=== PATIENT | male | born 1940 | race African-American/Black ===

== ENCOUNTER 2018-07-09 17:33 | Emergency (ER) | payer OTHER ==
--- NOTE | 2018-07-09 17:37 | PDOC ---
History of Present Illness - General Chief Complaint: Cold Symptoms Stated Complaint: SICK Time Seen by Provider: 07/09/18 17:37 History Source: Patient, Group Home Records - History of Present Illness Initial Comments: 07/09/18 17:57 77 year old male with PMH HLD, HTN, vascular dementia, left sided weakness ( ambulates with walker), DM, BPH BIBA from [place] for cough and nasal congestion x2 days. Pt admits to pain with coughing. Pt denies fever, chills, productive cough, chest pain, nausea, vomiting, diarrhea, abdominal pain, diaphoresis, SOB. Allergies - NKDA Past History - Past Medical History Allergies/Adverse Reactions: Allergies Allergy/AdvReac Type Severity Reaction Status Date / Time No Known Allergies Allergy Verified 07/09/18 17:44 Review of Systems - Review of Systems Able to Perform ROS?: Yes Comments:: 07/09/18 18:01 General: denies fever, chills, night sweats, generalized weakness. HEENT: admits to nasal congestion. denies sore throat, rhinorrhea, ear pain. Heart: denies chest pain, palpitations, syncope, lower extremity swelling, diaphoresis. Respiratory: admits to cough. denies shortness of breath, sputum production, hemoptysis. Abdomen: denies abdominal pain, nausea, vomiting, diarrhea, constipation, blood in stool. : denies dysuria, increased urinary frequency, hematuria, urinary incontinence , flank pain. Back: denies back pain. Musculoskeletal: denies joint pain, muscle pain, joint swelling. Neurological: denies headache, dizziness, numbness, tingling, weakness. Skin: denies rash, laceration, abrasion. *Physical Exam - Physical Exam Comments: 07/09/18 18:01 Constitutional: Well-nourished, Well-developed, appearing stated age. HEENT: head is normocephalic, atraumatic. EOMI. PERRLA. Auditory canals impacted with cerumen, unable to visualize the TM bilaterally. Nasal mucosa pink , moist. Oral mucosa moist, unable to visualize posterior pharynx due to large tongue. Neck: supple. Full ROM. no anterior cervical lymphadenopathy. Heart: regular rhythm. no murmurs, rubs or gallops. Lungs: clear to auscultation bilaterally. no crackles, rhonchi or wheezing. no stridor. Abdomen: soft, nontender. normal bowel sounds. no rebound, guarding, masses. Extremities: Peripheral pulses intact. trace pedal pitting edema to left foot. Neurological: CN 2-12 grossly intact. Moves all four extremities. Psych: awake, alert, oriented to person and place, not oriented to time. Follows commands. Answers questions appropriately. ED Treatment Course - LABORATORY CBC & Chemistry Diagram: 07/09/18 19:57 07/09/18 19:57 Medical Decision Making - Medical Decision Making 07/09/18 18:03 77 year old male with PMH HLD, HTN, vascular dementia, left sided weakness ( ambulates with walker), DM, BPH BIBA from [facility] for non-productive cough and nasal congestion x2 days. Initial Vital Signs Temp Pulse Resp BP Pulse Ox 97.3 F L 63 18 151/81 100 07/09/18 17:35 07/09/18 17:35 07/09/18 17:35 07/09/18 17:35 07/09/18 17:35 Afebrile. No tachycardia. Hypertensive. No hypoxia on room air. Concern for pneumonia, cough. - Pending CXR, CBC, CMP. Low concern for influenza. - Pending rapid flu swab. 07/09/18 19:23 CXR - cardiomegaly. no acute intrathoracic pathology. 07/09/18 20:24 CBC WBC 7.7 K/mm3 (4.0-10.0) 07/09/18 19:57 RBC 3.81 M/mm3 (4.00-5.60) L 07/09/18 19:57 Hgb 11.1 GM/dL (11.7-16.9) L 07/09/18 19:57 Hct 33.7 % (35.4-49) L 07/09/18 19:57 MCV 88.6 fl (80-96) 07/09/18 19:57 MCH 29.2 pg (25.7-33.7) 07/09/18 19:57 MCHC 33.0 g/dl (32.0-35.9) 07/09/18 19:57 RDW 15.5 % (11.9-15.9) 07/09/18 19:57 Plt Count 196 K/MM3 (134-434) 07/09/18 19:57 MPV 7.7 fl (7.5-11.1) 07/09/18 19:57 Absolute Neuts (auto) 5.8 K/mm3 (1.5-8.0) 07/09/18 19:57 Neutrophils % 75.2 % (42.8-82.8) 07/09/18 19:57 Lymphocytes % 9.3 % (8-40) 07/09/18 19:57 Monocytes % 13.7 % (3.8-10.2) H 07/09/18 19:57 Eosinophils % 1.5 % (0-4.5) 07/09/18 19:57 Basophils % 0.3 % (0-2.0) 07/09/18 19:57 Nucleated RBC % 0 % (0-0) 07/09/18 19:57 No leukocytosis. Anemia - hgb 11.1. no prior to compare to. Rapid flu swab negative for influenza A and influenza B. 07/09/18 20:53 CMP Sodium 145 mmol/L (136-145) 07/09/18 19:57 Potassium 4.7 mmol/L (3.5-5.1) 07/09/18 19:57 Chloride 111 mmol/L (98-107) H 07/09/18 19:57 Carbon Dioxide 25 mmol/L (21-32) 07/09/18 19:57 Anion Gap 9 MMOL/L (8-16) 07/09/18 19:57 BUN 36 mg/dL (7-18) H 07/09/18 19:57 Creatinine 2.0 mg/dL (0.55-1.3) H 07/09/18 19:57 Creat Clearance w eGFR 32.74 (>60) 07/09/18 19:57 Random Glucose 151 mg/dL (74-106) H 07/09/18 19:57 Calcium 8.8 mg/dL (8.5-10.1) 07/09/18 19:57 Total Bilirubin 0.3 mg/dL (0.2-1) 07/09/18 19:57 AST 23 U/L (15-37) 07/09/18 19:57 ALT 31 U/L (13-61) 07/09/18 19:57 Alkaline Phosphatase 81 U/L (45-117) 07/09/18 19:57 Total Protein 7.3 g/dl (6.4-8.2) 07/09/18 19:57 Albumin 3.3 g/dl (3.4-5.0) L 07/09/18 19:57 Cr 2.0 BUN 36 BUN/Cr = 18; likely intrarenal. no prior labs to compare. 07/09/18 20:56 Pt likely has a viral respiratory infection. No fever. No leukocytosis. No infiltrate identified on CXR. Pt will be discharged back to [facility] with copies of labwork, copy of CXR report, follow up instructions and strict return precautions. *DC/Admit/Observation/Transfer Diagnosis at time of Disposition: Cough - Discharge Dispostion Disposition: LONG-TERM FACILITY Condition at time of disposition: Stable Decision to Admit order: No - Referrals Referrals: Kal Montalvo [Primary Care Provider] - - Patient Instructions Printed Discharge Instructions: DI for Common Cold Additional Instructions: Joseph Osman was seen at [facility] Emergency Department. A chest x-ray was performed, no evidence of pneumonia was seen. A CBC was performed, it was normal. A CMP was performed, it showed kidney injury, we had no prior lab work to compare to, otherwise was normal. A rapid flu swab was negative for influenza A and influenza B. A copy of the blood work results and chest x-ray report has been included in his discharge paperwork. Mr. Osman likely has a viral infection. Treat symptomatically. Take Tylenol for pain. Drink lots of clear fluids, like water or gatorade, to stay hydrated. Take Mucinex over the counter for chest congestion. Follow up with his primary care doctor within 5 days. Call their office thursday and make an appointment. Bring the discharge paperwork to the appointment. His care is not complete until he follows up. Return to the Emergency Department for productive cough, chest pain, shortness of breath, high fever, chills, weakness, altered mental status from baseline, coughing up blood, lower extremity swelling, palpitations, passing out, lightheadedness, dizziness or any other new, worsening or concerning symptoms. - Post Discharge Activity
[2018-07-09 17:44] VITALS: BP 151/81; TEMP 97.3; BMI 24.3
--- NOTE | 2018-07-09 18:21 | PDOC ---
Attending Attestation - HPI HPI: 07/09/18 18:36 The patient is a 77 year old male, with a significant past medical history of diabetes, hypertension, hyperlipidemia, vascular dementia, left sided weakness (ambulates with walker), and BPH, who presents to the emergency department via EMS from [facility] with, 2 days of nonproductive cough, nasal congestion, and mild sore throat. He denies any fever, chills, nausea, and vomiting. Allergies: NKA Primary Care Physician: Dr. Montalvo <William Foster - Last Filed: 07/09/18 18:36> - Resident Resident Name: Patricia Hernandez - ED Attending Attestation I have performed the following: I have examined & evaluated the patient, The case was reviewed & discussed with the resident, I agree w/resident's findings & plan, Exceptions are as noted - Physicial Exam PE: 07/09/18 18:43 Patient is awake and alert, in no distress Normocephalic, atraumatic PERRLA, EOMI, decreased breath sounds at bases bilaterally; RRR Abdomen is soft, distended, nontender, bowel sounds present in all 4 quadrant no lower extremity edema bilaterally - Medical Decision Making 07/09/18 18:44 77-year-old male with history of vascular dementia, hypertension presents with nasal congestion and mild nonproductive cough. Patient's afebrile and hemodynamically stable with oxygen saturation of 98% room air. We'll swab for flu; we'll obtain chest x-ray, CBC and CMP. Will reassess. Likely discharge. 07/09/18 20:59 Patient is resting comfortably. Hemodynamically stable. Oxygen saturation remains above 98% in room air. CBC reveals no evidence of leukocytosis. BUN/ creatinine are mildly elevated likely chronic in nature. Flu swab is negative at this point. Chest x-ray reveals increased interstitial markings, borderline cardiomegaly but no evidence of distinct infiltrate or effusion. I suspect an acute viral infection. Will discharge. <Warren Camacho - Last Filed: 07/09/18 21:00> Attestations - Attestations 07/09/18 18:36 Documentation prepared by William Foster, acting as ophthalmic medical technician for Warren Camacho MD. <William Foster - Last Filed: 07/09/18 18:36>
[2018-07-09 19:14] VITALS: PULSE 65
[2018-07-09 20:10] LABS: BASO % 0.3 % (0-2.0); EOS % 1.5 % (0-4.5); HEMATOCRIT 33.7 % (35.4-49); HEMOGLOBIN 11.1 GM/dL (11.7-16.9); LYMPH % 9.3 % (8-40); MCH 29.2 pg (25.7-33.7); MEAN CELL VOLUME 88.6 fl (80-96); MEAN PLT VOLUME 7.7 fl (7.5-11.1); MONO % 13.7 % (3.8-10.2); NEUT % 75.2 % (42.8-82.8); PLATELET COUNT 196 K/MM3 (134-434); RBC 3.81 M/mm3 (4.00-5.60); RDW 15.5 % (11.9-15.9); WHITE BLOOD COUNT 7.7 K/mm3 (4.0-10.0)
[2018-07-09 20:38] LABS: ALBUMIN 3.3 g/dl (3.4-5.0); ALK PHOS 81 U/L (45-117); ANION GAP 9 MMOL/L (8-16); BILIRUBIN,TOTAL 0.3 mg/dL (0.2-1); BLOOD UREA NITROGEN 36 mg/dL (7-18); CALCIUM 8.8 mg/dL (8.5-10.1); CHLORIDE 111 mmol/L (98-107); CO2 25 mmol/L (21-32); GLUCOSE,RANDOM 151 mg/dL (74-106); POTASSIUM 4.7 mmol/L (3.5-5.1); SGOT/AST 23 U/L (15-37); SGPT/ALT 31 U/L (13-61); SODIUM 145 mmol/L (136-145); TOT PROT 7.3 g/dl (6.4-8.2)
[2018-07-09] MEDS ORDERED: ALBUTEROL SO4 2.5/IPRATROPIUM 0.5 INH SOL 3 ML VIAL.NEB. NEB ONE ×2 (22:53→22:54)
== END 2018-07-10 00:07 ==
LOC: JER 17:33
PROC: 3E0F7GC Introduction of Other Therapeutic Substance into Respiratory Tract, Via Natural or Artificial Opening (ICD-10-PCS; principal; 2018-07-09)
DX: R05 Cough (principal)
CPT/HCPCS: 36415; 71045-TC-FY; 80053; 85025; 87804; 94640; 99283-25; J7620

== ENCOUNTER 2018-11-23 08:55 | Observation (INO) | payer OTHER ==
--- NOTE | 2018-11-23 09:27 | PDOC ---
History of Present Illness - General Chief Complaint: Diarrhea Stated Complaint: Vomiting/Diarrhea Time Seen by Provider: 11/23/18 09:18 History Source: Patient, EMS Exam Limitations: Dementia - History of Present Illness Travel History: No Initial Comments: 11/23/18 09:32 78y M hx of PMHx HL, HTN, vascular dementia, left sided weakness (ambulates with walker), DM, BPH, BIBA from [facility] for evaluation of diarrhea. History limited from patient due to his dementia. The patient admits to a mild nonproductive cough for a few days. denies any f/c, cp, sob, n/v, abd pain, back pain, lightheadedness. He did not look in his stool, and is not sure what color it is. He notes it is only 1-2 episodes of diarrhea that started today PMD: Dr. Kal Montalvo Past History - Past Medical History Allergies/Adverse Reactions: Allergies Allergy/AdvReac Type Severity Reaction Status Date / Time No Known Allergies Allergy Verified 07/09/18 17:44 Home Medications: Ambulatory Orders Amlodipine Besylate 10 mg PO DAILY 11/23/18 Aspirin 81 mg PO DAILY 11/23/18 Atorvastatin Calcium 80 mg PO DAILY 11/23/18 Carvedilol [Coreg -] 25 mg PO BID 11/23/18 Donepezil HCl [Aricept] 10 mg PO HS 11/23/18 Finasteride [Proscar] 5 mg PO DAILY 11/23/18 Haloperidol [Haldol -] 1 mg PO HS 11/23/18 Hydralazine HCl 50 mg PO TID 11/23/18 Insulin Glargine,Hum.rec.anlog [Lantus] 20 unit SQ HS 11/23/18 Latanoprost/Pf [Latanoprost 0.005% Eye Drop] 7.5 ml OP HS 11/23/18 Lisinopril 20 mg PO DAILY 11/23/18 Tamsulosin HCl [Flomax] 0.4 mg PO DAILY 11/23/18 Cancer: Yes (prostates hypertrophy) CVA: Yes (stroke w/left sided weakness, uses walker 2015) COPD: No Dementia: Yes Diabetes: Yes HTN: Yes Hypercholesterolemia: Yes - Suicide/Smoking/Psychosocial Hx Smoking History: Unknown if ever smoked Have you smoked in the past 12 months: No Information on smoking cessation initiated: No Hx Alcohol Use: No Drug/Substance Use Hx: No Substance Use Type: None Review of Systems - Review of Systems Able to Perform ROS?: Yes Comments:: 11/23/18 09:49 Constitutional - no reported Fever, Chills, HEENT: no reported vision changes, sore throat Respiratory: +cough, no reported sob, hemoptysis Cardiac: no reported chest pain, palpitations, light headedness, leg swelling Abd/GI: +diarrheav no reported abd pain, nausea, vomiting, blood per rectum, melena, : no reported dysuria, frequency, discharge Musculskelatal - no reported back pain, joint swelling skin - no reported bruising, erythema, rash neurological: no reported headache, numbness, focal weakness, tingling, ataxia, hematologic: no reported easy bruising, easy bleeding *Physical Exam - Vital Signs Last Vital Signs Temp Pulse Resp BP Pulse Ox 98.2 F 71 16 156/69 96 11/23/18 08:58 11/23/18 08:58 11/23/18 08:58 11/23/18 08:58 11/23/18 08:58 - Physical Exam Comments: 11/23/18 09:50 GENERAL: The patient is awake, alert, and oriented x 1, Nontoxic - in no acute distress. HEAD: Normocephalic, atraumatic. EYES: extraocular movements intact, sclera anicteric, conjunctiva clear. ENT: Normal voice, Moist mucous membranes. NECK: Normal range of motion, supple LUNGS: Breath sounds equal, clear to auscultation bilaterally. No wheezes, no rhonchi, no rales. HEART: Regular rate and rhythm, normal S1 and S2 without murmur, rub or gallop. ABDOMEN: Soft, nontender, normoactive bowel sounds. No guarding, no rebound. No CVA tenderness EXTREMITIES: Normal range of motion, no edema. NEUROLOGICAL: No facial assymetry, Normal speech, PSYCH: Normal mood, normal affect. SKIN: Warm, Dry, normal turgor, Moderate Sedation - Procedure Monitoring Vital Signs: Procedure Monitoring Vital Signs Temperature 98.2 F 11/23/18 08:58 Pulse Rate 71 11/23/18 08:58 Respiratory Rate 16 11/23/18 08:58 Blood Pressure 156/69 11/23/18 08:58 O2 Sat by Pulse Oximetry (%) 96 11/23/18 08:58 Heart Score/ECG Review - ECG Impressions Comment:: 11/23/18 10:10 Twelve-lead EKG was performed and reviewed by me. There is normal sinus rhythm with a normal rate. rate of 64 LVH with strain pattern normal axis ED Treatment Course - LABORATORY CBC & Chemistry Diagram: 11/23/18 09:55 11/23/18 09:55 Medical Decision Making - Medical Decision Making 11/23/18 09:51 suspect viral diarrhea abd soft nontender, no systemic signs will ck labs, lytes will gently hydrate will ck cxr for his cough, but doubt pna due to mild symtoms w/o fever/sob 11/23/18 12:47 pts labs reviewed Cr cw his CKD trop borderline at .17 -no symptoms suggestive of cardiac event, suspect due to renal insufficency. paul michelle - recommends obtaining echo and repeat trop/ekg if neg, will dc with pmd fu 11/23/18 15:38 repeat trop at .2 ekg unchanged clinically pt appears well w/o cp, sob paul michelle, recommends keepin pt to trend antoher trop awaiting echo results will place in obs tele 11/23/18 15:56 case was paul Jung agree iw observation in tele under dr. blunt Case discussed in detail with admitting physician including history, physical exam and ancillary studies. Admitting physician has assumed care for the patient, will follow all pending diagnostics and will complete the evaluation and treatment. *DC/Admit/Observation/Transfer Diagnosis at time of Disposition: Abnormal EKG, Troponin I above reference range - Discharge Dispostion Condition at time of disposition: Stable Decision to Admit order: Yes - Referrals Referrals: Kal Montalvo [Primary Care Provider] - - Patient Instructions - Post Discharge Activity
[2018-11-23] MEDS ORDERED: SODIUM CHLORIDE 500 ML IV STA (09:31)
[2018-11-23 10:11] LABS: BASO % 0.3 % (0-2.0); HEMATOCRIT 31.8 % (35.4-49); HEMOGLOBIN 10.7 GM/dL (11.7-16.9); LYMPH % 20.4 % (8-40); MCH 30.3 pg (25.7-33.7); MCHC 33.8 g/dl (32.0-35.9); MEAN CELL VOLUME 89.7 fl (80-96); MEAN PLT VOLUME 7.2 fl (7.5-11.1); MONO % 10.5 % (3.8-10.2); NEUT % 66.8 % (42.8-82.8); PLATELET COUNT 193 K/MM3 (134-434); RBC 3.55 M/mm3 (4.00-5.60); RDW 14.2 % (11.9-15.9); WHITE BLOOD COUNT 5.5 K/mm3 (4.0-10.0)
[2018-11-23 10:56] LABS: ALBUMIN 3.1 g/dl (3.4-5.0); ALK PHOS 74 U/L (45-117); ANION GAP 6 MMOL/L (8-16); BILIRUBIN,TOTAL 0.3 mg/dL (0.2-1); BLOOD UREA NITROGEN 42 mg/dL (7-18); CHLORIDE 112 mmol/L (98-107); CO2 25 mmol/L (21-32); CREATININE 2.1 mg/dL (0.55-1.3); GLUCOSE,RANDOM 192 mg/dL (74-106); LIPASE 208 U/L (73-393); MAGNESIUM 2.2 mg/dL (1.8-2.4); POTASSIUM 4.2 mmol/L (3.5-5.1); SGOT/AST 26 U/L (15-37); SGPT/ALT 68 U/L (13-61); SODIUM 144 mmol/L (136-145); TOT PROT 6.9 g/dl (6.4-8.2)
[2018-11-23 12:55] LABS: CHOLESTEROL 141 mg/dL (50-200); HDL CHOLESTEROL 54 mg/dL (40-60); TRIGLYCERIDES 113 mg/dL (0-150)
--- NOTE | 2018-11-23 15:24 | ECHO ---
Name: CLEMENTE CANDELARIO Exam:Adult Echocardiogram Study Date: 11/23/2018 01:11 PM Age: 78 yrs Reason For Study: EVAL CARDIAC FUNCTION Height: 76 in Weight: 220 lb BSA: 2.3 m2 MMode/2D Measurements & Calculations IVSd: 1.2 cm Ao root diam: 4.0 cm LVIDd: 6.2 cm LA dimension: 4.3 cm LVIDs: 3.2 cm ACS: 1.2 cm LVPWd: 1.1 cm IVSs: 1.6 cm LVPWs: 1.7 cm EDV(Teich): 194.0 ml ESV(Teich): 42.4 ml LVOT diam: 2.1 cm Doppler Measurements & Calculations MV E max burt: 65.4 cm/sec Ao V2 max: 182.1 cm/sec MV A max burt: 81.4 cm/sec Ao max P.3 mmHg MV E/A: 0.80 Ao V2 mean: 129.1 cm/sec Ao mean P.5 mmHg Ao V2 VTI: 38.9 cm SIMONE(I,D): 1.8 cm2 SIMONE(V,D): 1.9 cm2 LV V1 max P.5 mmHg MR max burt: 385.0 cm/sec LV V1 mean P.7 mmHg MR max P.3 mmHg LV V1 max: 93.7 cm/sec LV V1 mean: 60.4 cm/sec LV V1 VTI: 19.5 cm SV(LVOT): 70.1 ml PI end-d burt: 126.9 cm/sec Med Peak E' Burt: 4.0 cm/sec Med E/e': 16.4 Lat Peak E' Burt: 3.7 cm/sec Lat E/e': 17.7 Procedure The study was technically adequate with some images being suboptimal in quality. Left Ventricle There is moderate concentric left ventricular hypertrophy. Left ventricular systolic function is norm al. Ejection Fraction = 60%. The transmitral spectral Doppler flow pattern is suggestive of impaired LV relaxation. Right Ventricle The right ventricle is normal in size and function. Atria The left atrium is mildly dilated. Right atrial size is normal. Mitral Valve There is mild mitral annular calcification. Tricuspid Valve The tricuspid valve is normal in structure and function. Aortic Valve There is moderate aortic sclerosis.;. Mild valvular aortic stenosis. Pulmonic Valve The pulmonic valve leaflets are thin and pliable; valve motion is normal. Trace pulmonic valvular regurgitation. Great Vessels The aortic root is normal size. Pericardium/Pleura There is no pericardial effusion. Interpretation Summary The study was technically adequate with some images being suboptimal in quality. There is moderate concentric left ventricular hypertrophy. Left ventricular systolic function is normal. The right ventricle is normal in size and function. Mild valvular aortic stenosis. Anthony Mcdowell 11/23/2018 03:23 PM
[2018-11-23] MEDS ORDERED: ASPIRIN 81 MG CHEWABLE TABLETS PO ONE (15:38)
--- NOTE | 2018-11-23 16:23 | EKG ---
Test Reason : Blood Pressure : / mmHG Vent. Rate : 068 BPM Atrial Rate : 068 BPM P-R Int : 158 ms QRS Dur : 086 ms QT Int : 426 ms P-R-T Axes : 054 000 174 degrees QTc Int : 452 ms NORMAL SINUS RHYTHM POSSIBLE LEFT ATRIAL ENLARGEMENT LEFT VENTRICULAR HYPERTROPHY WITH REPOLARIZATION ABNORMALITY CANNOT RULE OUT SEPTAL INFARCT , AGE UNDETERMINED ABNORMAL ECG WHEN COMPARED WITH ECG OF 23-NOV-2018 09:52, NO SIGNIFICANT CHANGE WAS FOUND Confirmed by Anthony Mcdowell ([id number]) on 11/23/2018 4:23:02 PM Referred By: Confirmed By:Anthony Mcdowell
--- NOTE | 2018-11-23 16:25 | EKG ---
Test Reason : Blood Pressure : / mmHG Vent. Rate : 064 BPM Atrial Rate : 064 BPM P-R Int : 160 ms QRS Dur : 088 ms QT Int : 438 ms P-R-T Axes : 066 -03 185 degrees QTc Int : 451 ms NORMAL SINUS RHYTHM POSSIBLE LEFT ATRIAL ENLARGEMENT LEFT VENTRICULAR HYPERTROPHY WITH REPOLARIZATION ABNORMALITY ABNORMAL ECG NO PREVIOUS ECGS AVAILABLE Confirmed by Anthony Mcdowell ([id number]) on 11/23/2018 4:25:29 PM Referred By: Confirmed By:Anthony Mcdowell
[2018-11-23] MEDS ORDERED: ASPIRIN 81 MG CHEWABLE TABLETS ONE (16:46)
[2018-11-23] MEDS ORDERED: LACTATED RINGERS SOLUTION 1,000 ML IV SCH (17:45)
--- NOTE | 2018-11-23 17:57 | HP ---
CHIEF COMPLAINT: diarrhea PCP: HISTORY OF PRESENT ILLNESS: Patient is a 78 y/o M w/ PMHx CKD, HLD, HTN, vascular dementia, CVA w/ residual L-sided weakness, DM, BPH, [facility] today. Patient has advanced dementia and is unable to provide any history. Affirms having diarrhea but offers no further details. Denies any other complaints. ED workup was largely unremarkable but included EKG showing TWI in lateral leads and possible LVH w repolarization abnormalities , no prior with which to compare. Troponin positive to 0.17 increased to 0.20 on repeat. Received ASA and NS bolus in ED. Seen by cardiology in ED, requested tele obs admission. ER course was notable for: (1) Troponin 0.17-->0.20 (2) EKG: TWI in lateral leads, LVH, no known prior (3) Recent Travel: PAST MEDICAL HISTORY: As per HPI PAST SURGICAL HISTORY: Social History: Smoking: Alcohol: Drugs: Family History: Allergies No Known Allergies Allergy (Verified 07/09/18 17:44) HOME MEDICATIONS: Home Medications Medication Instructions Recorded Amlodipine Besylate 10 mg PO DAILY 11/23/18 Aspirin 81 mg PO DAILY 11/23/18 Atorvastatin Calcium 80 mg PO DAILY 11/23/18 Carvedilol [Coreg -] 25 mg PO BID 11/23/18 Donepezil HCl [Aricept] 10 mg PO HS 11/23/18 Finasteride [Proscar] 5 mg PO DAILY 11/23/18 Haloperidol [Haldol -] 1 mg PO HS 11/23/18 Hydralazine HCl 50 mg PO TID 11/23/18 Insulin Glargine,Hum.rec.anlog 20 unit SQ HS 11/23/18 [Lantus] Latanoprost/Pf [Latanoprost 0.005% 7.5 ml OP HS 11/23/18 Eye Drop] Lisinopril 20 mg PO DAILY 11/23/18 Tamsulosin HCl [Flomax] 0.4 mg PO DAILY 11/23/18 REVIEW OF SYSTEMS PHYSICAL EXAMINATION Vital Signs - 24 hr 11/23/18 11/23/18 11/23/18 08:58 13:49 15:46 Temperature 98.2 F Pulse Rate 71 Pulse Rate [ 76 73 Left Radial] Respiratory 16 16 18 Rate Blood Pressure 156/69 Blood Pressure 150/79 179/90 H [Right Arm] O2 Sat by Pulse 96 97 97 Oximetry (%) GENERAL: Awake, alert, oriented only to name HEENT: NC/AT, PERRLA, EOMI, MMM NECK: supple, NT, no JVD, no LAD LUNGS: CTA b/l HEART: RRR no m/r/g ABDOMEN: +bs, obese, soft, NT, ND EXTREMITIES: 2+ pulses, warm, well-perfused. No calf tenderness. No peripheral edema. NEUROLOGICAL: 4+/5 strength in LUE and LLE c/w prior known residual deficit, otherwise no focal deficits PSYCHIATRIC: Advanced dementia SKIN: hypopigmented macular lesions on R castillo Laboratory Results - last 24 hr 11/23/18 11/23/18 11/23/18 09:55 09:55 14:03 WBC 5.5 RBC 3.55 L Hgb 10.7 L Hct 31.8 L MCV 89.7 MCH 30.3 MCHC 33.8 RDW 14.2 Plt Count 193 MPV 7.2 L Absolute Neuts (auto) 3.7 Neutrophils % 66.8 Lymphocytes % 20.4 D Monocytes % 10.5 H Eosinophils % 2.0 Basophils % 0.3 Nucleated RBC % 0 Sodium 144 Potassium 4.2 Chloride 112 H Carbon Dioxide 25 Anion Gap 6 L BUN 42 H Creatinine 2.1 H Creat Clearance w eGFR 30.86 Random Glucose 192 H Calcium 8.0 L Magnesium 2.2 Total Bilirubin 0.3 AST 26 ALT 68 H Alkaline Phosphatase 74 Creatine Kinase 266 273 Creatine Kinase Index 1.0 1.0 CK-MB (CK-2) 2.7 3.0 Troponin I 0.17 H 0.20 H Total Protein 6.9 Albumin 3.1 L Triglycerides 113 Cholesterol 141 Total LDL Cholesterol 75 HDL Cholesterol 54 Lipase 208 ASSESSMENT/PLAN: 78 y/o M w/ PMHx CKD, HLD, HTN, vascular dementia, CVA w/ residual L-sided weakness, DM, BPH from [facility] for evaluation of diarrhea x 1 day, no other Hx available d/t neurocognitive condition. Found to have troponemia and EKG abnormalities. #CV -trop 0.17-->0.20, will follow until downtrending -EKG: TWI in lateral leads, LVH w/ repolarization abnormalities -cardiology consulted, Dr. Jacobson following -significant HTN: 179/90 -restarting outpt BP meds: amlodipine, carvedilol, hydralazine, lisinopril -received ASA 162 in ED, restarting ASA 81 in AM -restarting Lipitor #GI -unknown timing/presentation/circumstances of diarrhea -obtaining stool Cx and C diff studies -gentle IVF w/ LR @ 50 #nephro -Cr 2.1 c/w baseline 6 months prior -gentle IVF w/ LR @ 50 #neuro/psych -restarting haldol/aricept #endocrine -BGM ACHS -SSI -Glargine 20U HS # -restarting finasteride and flomax #FEN -LR @ 50 -monitor and correct electrolytes -diabetic diet #PPx -DVT: heparin subq -GI: not indicated #code -full #dispo -tele obs Visit type - Emergency Visit Emergency Visit: Yes Care time: The patient presented to the Emergency Department on the above date and was hospitalized for further evaluation of their emergent condition. - New Patient This patient is new to me today: Yes Date on this admission: 11/23/18 - Critical Care Critical Care patient: No
--- NOTE | 2018-11-23 19:39 | PN ---
Teaching Attending Note Name of Resident: Siva Miguel ATTENDING PHYSICIAN STATEMENT I saw and evaluated the patient. I reviewed the resident's note and discussed the case with the resident. I agree with the resident's findings and plan as documented. SUBJECTIVE: Patient has dementia and history was limited. He does admit to diarrhea for several days. Denies abdominal pain/nausea/vomiting/melena/ hematochezia/fever/chills. OBJECTIVE: Afebrile, Hemodynamically Stable. Last Vital Signs Temp Pulse Resp BP Pulse Ox 98.1 F 74 18 138/58 L 98 11/23/18 17:47 11/23/18 17:47 11/23/18 18:04 11/23/18 17:47 11/23/18 18:04 HEENT - Atraumatic, Normocephalic. Heart - S1, S2, RRR, soft SM Lungs - clear to auscultation. Abdomen - soft, non-tender. Bowel Sounds normal. Extremities - no edema. No calf tenderness. Neuro - AAO x 1-2. Moving all extremities but unable to participate in neuro exam. Laboratory Results - last 24 hr 11/23/18 11/23/18 11/23/18 09:55 09:55 14:03 WBC 5.5 RBC 3.55 L Hgb 10.7 L Hct 31.8 L MCV 89.7 MCH 30.3 MCHC 33.8 RDW 14.2 Plt Count 193 MPV 7.2 L Absolute Neuts (auto) 3.7 Neutrophils % 66.8 Lymphocytes % 20.4 D Monocytes % 10.5 H Eosinophils % 2.0 Basophils % 0.3 Nucleated RBC % 0 Sodium 144 Potassium 4.2 Chloride 112 H Carbon Dioxide 25 Anion Gap 6 L BUN 42 H Creatinine 2.1 H Creat Clearance w eGFR 30.86 Random Glucose 192 H Calcium 8.0 L Magnesium 2.2 Total Bilirubin 0.3 AST 26 ALT 68 H Alkaline Phosphatase 74 Creatine Kinase 266 273 Creatine Kinase Index 1.0 1.0 CK-MB (CK-2) 2.7 3.0 Troponin I 0.17 H 0.20 H Total Protein 6.9 Albumin 3.1 L Triglycerides 113 Cholesterol 141 Total LDL Cholesterol 75 HDL Cholesterol 54 Lipase 208 Current Medications Generic Name Dose Route Start Last Admin Trade Name Freq PRN Reason Stop Dose Admin Amlodipine Besylate 10 mg 11/24/18 10:00 Norvasc - PO DAILY [facility] Aspirin 81 mg 11/24/18 10:00 Asa - PO DAILY [facility] Atorvastatin Calcium 80 mg 11/24/18 22:00 Lipitor - PO HS [facility] Carvedilol 25 mg 11/23/18 22:00 Coreg - PO BID [facility] Donepezil HCl 10 mg 11/23/18 22:00 Aricept - PO HS [facility] Finasteride 5 mg 11/24/18 10:00 Proscar - PO DAILY [facility] Heparin Sodium (Porcine) 5,000 unit 11/23/18 22:00 Heparin - SQ TID [facility] Hydralazine HCl 50 mg 11/23/18 22:00 Apresoline - PO TID [facility] Lactated Ringer's 1,000 mls @ 50 mls/hr 11/23/18 17:45 11/23/18 17:46 Lactated Ringers Solution IV 50 mls/hr ASDIR [facility] Administration Insulin Aspart 1 vial 11/23/18 22:00 Novolog Vial Sliding Scale - SQ ACHS [facility] Protocol Insulin Detemir 20 units 11/23/18 22:00 Levemir Vial SQ HS [facility] Latanoprost 1 drop 11/23/18 22:00 Xalatan 0.005% Eye Drops - OU HS [facility] Lisinopril 20 mg 11/24/18 10:00 Prinivil PO DAILY [facility] Tamsulosin HCl 0.4 mg 11/24/18 08:30 Flomax - PO DAILY@0830 [facility] Home Medications Medication Instructions Recorded Amlodipine Besylate 10 mg PO DAILY 11/23/18 Aspirin 81 mg PO DAILY 11/23/18 Atorvastatin Calcium 80 mg PO DAILY 11/23/18 Carvedilol [Coreg -] 25 mg PO BID 11/23/18 Donepezil HCl [Aricept] 10 mg PO HS 11/23/18 Finasteride [Proscar] 5 mg PO DAILY 11/23/18 Haloperidol [Haldol -] 1 mg PO HS 11/23/18 Hydralazine HCl 50 mg PO TID 11/23/18 Insulin Glargine,Hum.rec.anlog 20 unit SQ HS 11/23/18 [Lantus] Latanoprost/Pf [Latanoprost 0.005% 7.5 ml OP HS 11/23/18 Eye Drop] Lisinopril 20 mg PO DAILY 11/23/18 Tamsulosin HCl [Flomax] 0.4 mg PO DAILY 11/23/18 ASSESSMENT AND PLAN: 78 year old Male with history of HTN, HLD, CKD 3, HL, Dementia, DM 2, BPH, Chronic L hemiplegia (? prior CVA), sent to ED by [facility] for reported diarrhea. No fever/chills/abdominal pain/melena/hematochezia/nausea/vomiting. 1. Diarrhea, etiology unclear Will send Stool for Culture and Cdiff once sample is produced. Gentle IV hydration overnight. 2. Troponin Egression, denies CP - no known cardiac history. Possibly sec to decreased clearance due to CKD ECG - LVH with repolarization abnormalities/inverted T waves lateral leads. Echo - Moderate LVH, systolic function normal, Mild . For telemonitoring and serial Troponin measurements. On Aspirin, BB, KATHERINE-I, Statin. 3. CKD 3 - Stable. Creat 2.1 - at baseline. 4. HTN - Continue Lisinopril, Norvasc, Hydralazine, Coreg 5. Dementia - Continue Donepezil, Hydralazine 6. BPH -Continue Flomax, Finasteride. 7. DM 2 - Continue Levemir with sliding scale. DVT Px - Heparin SQ
[2018-11-23] MEDS ORDERED: LATANOPROST 0.005% OPHTH SOLN 2.5ML BOTTLE OU SCH (22:00)
[2018-11-23] MEDS ORDERED: DONEPEZIL HCL 10 MG TABLET (FP) PO SCH (22:00)
[2018-11-23] MEDS ORDERED: HALOPERIDOL 1 MG TABLET (FP) PO SCH (22:00)
[2018-11-23] MEDS ORDERED: INSULIN (LEVEMIR) 100 UNITS/ML UNITS SQ SCH (22:00)
[2018-11-23] MEDS ORDERED: hydrALAZINE HCL 25 MG TABLET (FP) ONE (22:52)
[2018-11-23] MEDS ORDERED: CARVEDILOL 12.5 MG TABLET (FP) ONE (22:52)
[2018-11-23] MEDS ORDERED: DONEPEZIL HCL 5 MG TABLET (FP) ONE (22:53)
[2018-11-23] MEDS ORDERED: HEPARIN NA (PORCINE) 5,000 UNITS/ML 1ML VIAL ONE (22:53)
[2018-11-23] MEDS ORDERED: INSULIN (LEVEMIR) 100 UNITS/ML UNITS SQ ONE (22:53)
[2018-11-23] MEDS: CARVEDILOL 25 MG TABLET (FP) PO SCH (23:05)
[2018-11-23] MEDS: HEPARIN NA (PORCINE) 5,000 UNITS/ML 1ML VIAL SQ SCH (23:05)
[2018-11-23] MEDS: hydrALAZINE HCL 50 MG TABLET (FP) PO SCH (23:05)
[2018-11-23] MEDS: INSULIN SLIDING SCALE (NOVOLOG) 1 VIAL SQ SCH (23:07)
--- NOTE | 2018-11-23 23:07 | CON.CARD ---
Consult Consult Specialty:: cardiology Reason for Consultation:: elevated TNI - History of Present Illness Chief Complaint: c/o diarrhea; denies chest pain History of Present Illness: 78y M hx of PMHx HL, HTN, vascular dementia, left sided weakness (ambulates with walker), DM, BPH, [facility]. History limited from patient due to his dementia. The patient admits to a mild nonproductive cough for a few days. denies any f/c, cp, sob, n/v, abd pain, back pain, lightheadedness. He did not look in his stool, and is not sure what color it is. 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 Cardio/Vascular: Yes: HTN - Alcohol/Substance Use Hx Alcohol Use: No - Smoking History Smoking history: Unknown if ever smoked Have you smoked in the past 12 months: No Home Medications - Allergies Allergies/Adverse Reactions: Allergies Allergy/AdvReac Type Severity Reaction Status Date / Time No Known Allergies Allergy Verified 07/09/18 17:44 - Home Medications Home Medications: Ambulatory Orders Amlodipine Besylate 10 mg PO DAILY 11/23/18 Aspirin 81 mg PO DAILY 11/23/18 Atorvastatin Calcium 80 mg PO DAILY 11/23/18 Carvedilol [Coreg -] 25 mg PO BID 11/23/18 Donepezil HCl [Aricept] 10 mg PO HS 11/23/18 Finasteride [Proscar] 5 mg PO DAILY 11/23/18 Haloperidol [Haldol -] 1 mg PO HS 11/23/18 Hydralazine HCl 50 mg PO TID 11/23/18 Insulin Glargine,Hum.rec.anlog [Lantus] 20 unit SQ HS 11/23/18 Latanoprost/Pf [Latanoprost 0.005% Eye Drop] 7.5 ml OP HS 11/23/18 Lisinopril 20 mg PO DAILY 11/23/18 Tamsulosin HCl [Flomax] 0.4 mg PO DAILY 11/23/18 Review of Systems Unable to obtain ROS, reason: dementia Vital Signs: Vital Signs Temperature 98.1 F 11/23/18 17:47 Pulse Rate 79 11/23/18 20:19 Respiratory Rate 18 11/23/18 20:19 Blood Pressure 160/77 11/23/18 20:19 O2 Sat by Pulse Oximetry (%) 99 11/23/18 20:19 - Other Data Labs, Other Data: CBC, BMP 11/23/18 09:55 11/23/18 09:55 Troponin, BNP 11/23/18 11/23/18 11/23/18 09:55 14:03 21:19 Troponin I 0.17 H 0.20 H 0.17 H Troponin, BNP 11/23/18 11/23/18 11/23/18 09:55 14:03 21:19 Troponin I 0.17 H 0.20 H 0.17 H Problem List - Problems (1) Diarrhea Code(s): R19.7 - DIARRHEA, UNSPECIFIED (2) Abnormal EKG Assessment/Plan: NSR: LVH with likely repolarization abnormalities; r/o ischemia; r/o septal infarct Code(s): R94.31 - ABNORMAL ELECTROCARDIOGRAM [ECG] [EKG] (3) Troponin I above reference range Assessment/Plan: 0.17-->0.20; CK not elevated. EKG: NSR; LVH; repolariztion abnromalities; r/o ishcmia; r/o septal infarct F/u TNI serially;telemetry. F/u ECHO for LVEF, regional wall motion. Code(s): R74.8 - ABNORMAL LEVELS OF OTHER SERUM ENZYMES (4) Cough Code(s): R05 - COUGH
[2018-11-23] MEDS ORDERED: INSULIN (NOVOLOG MIX 70/30) 100 UNITS/ML MDV SQ ONE (23:11)
[2018-11-24 05:53] LABS: INR 0.98 (0.83-1.09); PROTHROMBIN TIME (PATIENT) 11.6 SEC (9.7-13.0)
[2018-11-24 05:56] LABS: ACTIVATED PTT 33.3 SECONDS (25.2-36.5)
[2018-11-24] MEDS ORDERED: HEPARIN NA (PORCINE) 5,000 UNITS/ML 1ML VIAL ONE (06:07)
[2018-11-24] MEDS ORDERED: hydrALAZINE HCL 25 MG TABLET (FP) ONE (06:07)
[2018-11-24 06:14] LABS: ANION GAP 3 MMOL/L (8-16); BLOOD UREA NITROGEN 35 mg/dL (7-18); CALCIUM 7.9 mg/dL (8.5-10.1); CHLORIDE 115 mmol/L (98-107); CO2 26 mmol/L (21-32); CREATININE 1.9 mg/dL (0.55-1.3); GLUCOSE,RANDOM 108 mg/dL (74-106); MAGNESIUM 2.2 mg/dL (1.8-2.4); N-TERMINAL BNP 429.6 pg/ml (5-450); PHOSPHOROUS 3.6 mg/dL (2.5-4.9); SODIUM 145 mmol/L (136-145)
[2018-11-24] MEDS: HEPARIN NA (PORCINE) 5,000 UNITS/ML 1ML VIAL SQ SCH ×2 (06:38→14:14)
[2018-11-24] MEDS: hydrALAZINE HCL 50 MG TABLET (FP) PO SCH ×2 (06:39→14:14)
[2018-11-24] MEDS: INSULIN SLIDING SCALE (NOVOLOG) 1 VIAL SQ SCH ×2 (07:40→11:23)
--- NOTE | 2018-11-24 08:12 | PN ---
Progress Note, Physician History of Present Illness: 78y M hx of PMHx HL, HTN, vascular dementia, left sided weakness (ambulates with walker), DM, BPH, [facility]. History limited from patient due to his dementia. The patient admits to a mild nonproductive cough for a few days. denies any f/c, cp, sob, n/v, abd pain, back pain, lightheadedness. He did not look in his stool, and is not sure what color it is. He notes it is only 1-2 episodes of diarrhea that started today - Current Medication List Current Medications: Active Medications Amlodipine Besylate (Norvasc -) 10 mg PO DAILY [facility] Aspirin (Asa -) 81 mg PO DAILY [facility] Atorvastatin Calcium (Lipitor -) 80 mg PO HS [facility] Carvedilol (Coreg -) 25 mg PO BID [facility] Last Admin: 11/23/18 23:05 Dose: 25 mg Donepezil HCl (Aricept -) 10 mg PO [facility] Last Admin: 11/23/18 23:05 Dose: 10 mg Finasteride (Proscar -) 5 mg PO DAILY [facility] Heparin Sodium (Porcine) (Heparin -) 5,000 unit SQ TID [facility] Last Admin: 11/24/18 06:38 Dose: 5,000 unit Hydralazine HCl (Apresoline -) 50 mg PO TID [facility] Last Admin: 11/24/18 06:39 Dose: 50 mg Lactated Ringer's (Lactated Ringers Solution) 1,000 mls @ 50 mls/hr IV ASDIR [facility] Last Admin: 11/23/18 17:46 Dose: 50 mls/hr Insulin Aspart (Novolog Vial Sliding Scale -) 1 vial SQ [facility]; Protocol Last Admin: 11/24/18 07:40 Dose: Not Given Insulin Detemir (Levemir Vial) 20 units SQ [facility] Last Admin: 11/23/18 23:05 Dose: 20 unit Latanoprost (Xalatan 0.005% Eye Drops -) 1 drop OU [facility] Last Admin: 11/23/18 22:00 Dose: 1 drop Lisinopril (Prinivil) 20 mg PO DAILY [facility] Tamsulosin HCl (Flomax -) 0.4 mg PO DAILY@0830 [facility] - Objective Vital Signs: Vital Signs Temperature 98.1 F 11/23/18 17:47 Pulse Rate 79 11/23/18 20:19 Respiratory Rate 18 11/23/18 20:19 Blood Pressure 160/77 11/23/18 20:19 O2 Sat by Pulse Oximetry (%) 99 11/23/18 20:19 Eyes: Yes: WNL, Conjunctiva Clear, EOM Intact HENT: Yes: WNL, Atraumatic, Normocephalic Neck: Yes: WNL, Supple, Trachea Midline Cardiovascular: Yes: WNL, Regular Rate and Rhythm Respiratory: Yes: WNL, Regular, CTA Bilaterally Gastrointestinal: Yes: WNL, Normal Bowel Sounds Genitourinary: Yes: WNL Musculoskeletal: Yes: WNL Extremities: Yes: WNL Edema: No Integumentary: Yes: WNL Neurological: Yes: WNL, Alert, Oriented ...Motor Strength: WNL Psychiatric: Yes: WNL Labs: CBC, BMP 11/23/18 09:55 11/24/18 05:20 INR, PTT INR 0.98 (0.83-1.09) 11/24/18 05:20 Assessment/Plan - Problems (1) Diarrhea Code(s): R19.7 - DIARRHEA, UNSPECIFIED (2) Abnormal EKG Assessment/Plan: NSR: LVH with likely repolarization abnormalities; r/o ischemia; r/o septal infarct Code(s): R94.31 - ABNORMAL ELECTROCARDIOGRAM [ECG] [EKG] (3) Troponin I above reference range Assessment/Plan: 0.17-->0.20; CK not elevated. EKG: NSR; LVH; repolariztion abnromalities; r/o ishcmia; r/o septal infarct F/u TNI serially;telemetry. F/u ECHO for LVEF, regional wall motion. Code(s): R74.8 - ABNORMAL LEVELS OF OTHER SERUM ENZYMES (4) Cough Code(s): R05 - COUGH
[2018-11-24] MEDS ORDERED: TAMSULOSIN HCL 0.4 MG CAP PO SCH (08:30)
[2018-11-24 09:38] LABS: BASO % 0.4 % (0-2.0); EOS % 2.4 % (0-4.5); HEMATOCRIT 35.1 % (35.4-49); HEMOGLOBIN 11.8 GM/dL (11.7-16.9); LYMPH % 25.5 % (8-40); MCH 30.3 pg (25.7-33.7); MCHC 33.6 g/dl (32.0-35.9); MEAN PLT VOLUME 7.3 fl (7.5-11.1); MONO % 10.1 % (3.8-10.2); NEUT % 61.6 % (42.8-82.8); PLATELET COUNT 200 K/MM3 (134-434); RDW 14.3 % (11.9-15.9); WHITE BLOOD COUNT 4.7 K/mm3 (4.0-10.0)
--- NOTE | 2018-11-24 09:52 | EKG ---
Test Reason : Blood Pressure : / mmHG Vent. Rate : 074 BPM Atrial Rate : 074 BPM P-R Int : 162 ms QRS Dur : 082 ms QT Int : 406 ms P-R-T Axes : 069 034 204 degrees QTc Int : 450 ms NORMAL SINUS RHYTHM ABNORMAL ECG WHEN COMPARED WITH ECG OF 23-NOV-2018 14:39, MINIMAL CRITERIA FOR SEPTAL INFARCT ARE NO LONGER PRESENT T WAVE INVERSION MORE EVIDENT IN INFERIOR LEADS T WAVE INVERSION MORE EVIDENT IN ANTERIOR LEADS Confirmed by ARIEL FISH MD ([id number]) on 11/24/2018 9:52:05 AM Referred By: Confirmed By:ARIEL FISH MD
--- NOTE | 2018-11-24 09:52 | EKG ---
Test Reason : Blood Pressure : / mmHG Vent. Rate : 072 BPM Atrial Rate : 072 BPM P-R Int : 158 ms QRS Dur : 094 ms QT Int : 412 ms P-R-T Axes : 056 -21 160 degrees QTc Int : 451 ms NORMAL SINUS RHYTHM LEFT VENTRICULAR HYPERTROPHY WITH REPOLARIZATION ABNORMALITY ABNORMAL ECG WHEN COMPARED WITH ECG OF 23-NOV-2018 21:39, T WAVE INVERSION LESS EVIDENT IN INFERIOR LEADS Confirmed by POLINA TRIVEDI, ARIEL ([id number]) on 11/24/2018 9:51:57 AM Referred By: Confirmed By:ARIEL FISH MD
[2018-11-24] MEDS ORDERED: FINASTERIDE 5 MG TABLET (FP) PO SCH (10:00)
[2018-11-24] MEDS ORDERED: LISINOPRIL 20 MG TABLET (FP) PO SCH (10:00)
[2018-11-24] MEDS ORDERED: amLODIPine BESYLATE 10 MG TABLET (FP) PO SCH (10:00)
[2018-11-24] MEDS ORDERED: ASPIRIN 81 MG CHEWABLE TABLETS PO SCH (10:00)
[2018-11-24] MEDS ORDERED: PT OWN MED DRAWER 7, Y5N ONE (10:09)
[2018-11-24] MEDS: CARVEDILOL 25 MG TABLET (FP) PO SCH (11:23)
--- NOTE | 2018-11-24 13:11 | PN ---
Physical Exam: SUBJECTIVE: Patient seen and examined at bedside. Denies further diarrhea, denies any other complaints. Feeling well. OBJECTIVE: Vital Signs Period Temp Pulse Resp BP Sys/Escoto Pulse Ox Last 24 Hr 98.1 F-98.1 F 68-79 16-19 138-179/58-90 96-99 GENERAL: Awake, alert, oriented only to name HEENT: NC/AT, PERRLA, EOMI, MMM NECK: supple, NT, no JVD, no LAD LUNGS: CTA b/l HEART: RRR no m/r/g ABDOMEN: +bs, obese, soft, NT, ND EXTREMITIES: 2+ pulses, warm, well-perfused. No calf tenderness. No peripheral edema. NEUROLOGICAL: 4+/5 strength in LUE and LLE c/w prior known residual deficit, otherwise no focal deficits PSYCHIATRIC: Advanced dementia SKIN: hypopigmented macular lesions on R castillo with chronic appearance Laboratory Results - last 24 hr 11/23/18 11/23/18 11/23/18 14:03 21:19 22:57 WBC RBC Hgb Hct MCV MCH MCHC RDW Plt Count MPV Absolute Neuts (auto) Neutrophils % Lymphocytes % Monocytes % Eosinophils % Basophils % Nucleated RBC % PT with INR INR PTT (Actin FS) Sodium Potassium Chloride Carbon Dioxide Anion Gap BUN Creatinine Creat Clearance w eGFR POC Glucometer 278 Random Glucose Calcium Phosphorus Magnesium Creatine Kinase 273 Creatine Kinase Index 1.0 CK-MB (CK-2) 3.0 Troponin I 0.20 H 0.17 H B-Natriuretic Peptide 11/24/18 11/24/18 11/24/18 00:42 05:20 05:20 WBC RBC Hgb Hct MCV MCH MCHC RDW Plt Count MPV Absolute Neuts (auto) Neutrophils % Lymphocytes % Monocytes % Eosinophils % Basophils % Nucleated RBC % PT with INR 11.60 INR 0.98 PTT (Actin FS) 33.3 Sodium 145 Potassium 4.0 Chloride 115 H Carbon Dioxide 26 Anion Gap 3 L BUN 35 H Creatinine 1.9 H Creat Clearance w eGFR 34.64 POC Glucometer Random Glucose 108 H Calcium 7.9 L Phosphorus 3.6 Magnesium 2.2 Creatine Kinase 230 Creatine Kinase Index 1.0 CK-MB (CK-2) 2.4 Troponin I 0.17 H B-Natriuretic Peptide 429.6 11/24/18 11/24/18 11/24/18 05:20 06:30 09:28 WBC 4.7 RBC 3.90 L Hgb 11.8 Hct 35.1 L MCV 90.0 MCH 30.3 MCHC 33.6 RDW 14.3 Plt Count 200 MPV 7.3 L Absolute Neuts (auto) 2.9 Neutrophils % 61.6 Lymphocytes % 25.5 D Monocytes % 10.1 Eosinophils % 2.4 Basophils % 0.4 Nucleated RBC % 0 PT with INR INR PTT (Actin FS) Sodium Potassium Chloride Carbon Dioxide Anion Gap BUN Creatinine Creat Clearance w eGFR POC Glucometer 91 Random Glucose Calcium Phosphorus Magnesium Creatine Kinase 229 Creatine Kinase Index 0.9 CK-MB (CK-2) 2.2 Troponin I 0.16 H B-Natriuretic Peptide 11/24/18 11:20 WBC RBC Hgb Hct MCV MCH MCHC RDW Plt Count MPV Absolute Neuts (auto) Neutrophils % Lymphocytes % Monocytes % Eosinophils % Basophils % Nucleated RBC % PT with INR INR PTT (Actin FS) Sodium Potassium Chloride Carbon Dioxide Anion Gap BUN Creatinine Creat Clearance w eGFR POC Glucometer 91 Random Glucose Calcium Phosphorus Magnesium Creatine Kinase Creatine Kinase Index CK-MB (CK-2) Troponin I B-Natriuretic Peptide Active Medications Generic Name Dose Route Start Last Admin Trade Name Freq PRN Reason Stop Dose Admin Amlodipine Besylate 10 mg 11/24/18 10:00 11/24/18 11:23 Norvasc - PO 10 mg DAILY [facility] Administration Aspirin 81 mg 11/24/18 10:00 11/24/18 11:23 Asa - PO 81 mg DAILY [facility] Administration Atorvastatin Calcium 80 mg 11/24/18 22:00 Lipitor - PO HS [facility] Carvedilol 25 mg 11/23/18 22:00 11/24/18 11:23 Coreg - PO 25 mg BID [facility] Administration Donepezil HCl 10 mg 11/23/18 22:00 11/23/18 23:05 Aricept - PO 10 mg HS [facility] Administration Finasteride 5 mg 11/24/18 10:00 11/24/18 11:23 Proscar - PO 5 mg DAILY [facility] Administration Heparin Sodium (Porcine) 5,000 unit 11/23/18 22:00 11/24/18 06:38 Heparin - SQ 5,000 unit TID [facility] Administration Hydralazine HCl 50 mg 11/23/18 22:00 11/24/18 06:39 Apresoline - PO 50 mg TID [facility] Administration Lactated Ringer's 1,000 mls @ 50 mls/hr 11/23/18 17:45 11/23/18 17:46 Lactated Ringers Solution IV 50 mls/hr ASDIR [facility] Administration Insulin Aspart 1 vial 11/23/18 22:00 11/24/18 11:23 Novolog Vial Sliding Scale - SQ Not Given ACHS [facility] Protocol Insulin Detemir 20 units 11/23/18 22:00 11/23/18 23:05 Levemir Vial SQ 20 unit HS [facility] Administration Latanoprost 1 drop 11/23/18 22:00 11/23/18 22:00 Xalatan 0.005% Eye Drops - OU 1 drop HS [facility] Administration Lisinopril 20 mg 11/24/18 10:00 11/24/18 11:23 Prinivil PO 20 mg DAILY [facility] Administration Tamsulosin HCl 0.4 mg 11/24/18 08:30 11/24/18 08:23 Flomax - PO 0.4 mg DAILY@0830 [facility] Administration HOSPITAL COURSE: Patient is a 78 y/o M w/ PMHx CKD, HLD, HTN, vascular dementia, CVA w/ residual L-sided weakness, DM, BPH, BIBEMS from [facility] for evaluation of diarrhea beginning today. Patient has advanced dementia and is unable to provide any history. Affirms having diarrhea but offers no further details. Denies any other complaints. ED workup was largely unremarkable but included EKG showing TWI in lateral leads and possible LVH w/ repolarization abnormalities, no prior with which to compare. Troponin positive to 0.17 increased to 0.20 on repeat. Received ASA and NS bolus in ED. Cardiology was consulted by the ED, he was seen by Dr. Jacobson, and placed on telemetry observation. Serial cardiac enzymes downtrended. The patient denied any chest pain or shortness of breath and manifested no signs or symptoms of cardiac pathology throughout his hospitalization. He was discharged back to his living facility with instructions to resume prior medical therapies and follow up with his primary medical doctor.
[2018-11-24] MEDS ORDERED: ATROPINE SULFATE 1 MG/10 ML DISP.SYRIN ONE (13:41)
[2018-11-24 14:22] VITALS: BP 151/71; PULSE 61; TEMP 98.2
--- NOTE | 2018-11-24 15:15 | DS ---
Physical Exam: SUBJECTIVE: Patient seen and examined at bedside. Denies further diarrhea, denies any other complaints. Feeling well. OBJECTIVE: Vital Signs Period Temp Pulse Resp BP Sys/Escoto Pulse Ox Last 24 Hr 98.1 F-98.2 F 61-79 15-19 138-179/58-90 96-99 PHYSICAL EXAM GENERAL: Awake, alert, oriented only to name HEENT: NC/AT, PERRLA, EOMI, MMM NECK: supple, NT, no JVD, no LAD LUNGS: CTA b/l HEART: RRR no m/r/g ABDOMEN: +bs, obese, soft, NT, ND EXTREMITIES: 2+ pulses, warm, well-perfused. No calf tenderness. No peripheral edema. NEUROLOGICAL: 4+/5 strength in LUE and LLE c/w prior known residual deficit, otherwise no focal deficits PSYCHIATRIC: Advanced dementia SKIN: hypopigmented macular lesions on R castillo with chronic appearance LABS Laboratory Results - last 24 hr 11/23/18 11/23/18 11/24/18 21:19 22:57 00:42 WBC RBC Hgb Hct MCV MCH MCHC RDW Plt Count MPV Absolute Neuts (auto) Neutrophils % Lymphocytes % Monocytes % Eosinophils % Basophils % Nucleated RBC % PT with INR INR PTT (Actin FS) Sodium Potassium Chloride Carbon Dioxide Anion Gap BUN Creatinine Creat Clearance w eGFR POC Glucometer 278 Random Glucose Calcium Phosphorus Magnesium Creatine Kinase 230 Creatine Kinase Index 1.0 CK-MB (CK-2) 2.4 Troponin I 0.17 H 0.17 H B-Natriuretic Peptide 11/24/18 11/24/18 11/24/18 05:20 05:20 05:20 WBC RBC Hgb Hct MCV MCH MCHC RDW Plt Count MPV Absolute Neuts (auto) Neutrophils % Lymphocytes % Monocytes % Eosinophils % Basophils % Nucleated RBC % PT with INR 11.60 INR 0.98 PTT (Actin FS) 33.3 Sodium 145 Potassium 4.0 Chloride 115 H Carbon Dioxide 26 Anion Gap 3 L BUN 35 H Creatinine 1.9 H Creat Clearance w eGFR 34.64 POC Glucometer Random Glucose 108 H Calcium 7.9 L Phosphorus 3.6 Magnesium 2.2 Creatine Kinase 229 Creatine Kinase Index 0.9 CK-MB (CK-2) 2.2 Troponin I 0.16 H B-Natriuretic Peptide 429.6 11/24/18 11/24/18 11/24/18 06:30 09:28 11:20 WBC 4.7 RBC 3.90 L Hgb 11.8 Hct 35.1 L MCV 90.0 MCH 30.3 MCHC 33.6 RDW 14.3 Plt Count 200 MPV 7.3 L Absolute Neuts (auto) 2.9 Neutrophils % 61.6 Lymphocytes % 25.5 D Monocytes % 10.1 Eosinophils % 2.4 Basophils % 0.4 Nucleated RBC % 0 PT with INR INR PTT (Actin FS) Sodium Potassium Chloride Carbon Dioxide Anion Gap BUN Creatinine Creat Clearance w eGFR POC Glucometer 91 91 Random Glucose Calcium Phosphorus Magnesium Creatine Kinase Creatine Kinase Index CK-MB (CK-2) Troponin I B-Natriuretic Peptide HOSPITAL COURSE: Date of Admission:11/23/18 Patient is a 78 y/o M w/ PMHx CKD, HLD, HTN, vascular dementia, CVA w/ residual L-sided weakness, DM, BPH, BIBEMS from [facility] for evaluation of diarrhea beginning today. Patient has advanced dementia and is unable to provide any history. Affirms having diarrhea but offers no further details. Denies any other complaints. ED workup was largely unremarkable but included EKG showing TWI in lateral leads and possible LVH w/ repolarization abnormalities, no prior with which to compare. Troponin positive to 0.17 increased to 0.20 on repeat. Received ASA and NS bolus in ED. Cardiology was consulted by the ED, he was seen by Dr. Jacobson, and placed on telemetry observation. Serial cardiac enzymes downtrended. The patient denied any chest pain or shortness of breath and manifested no signs or symptoms of cardiac pathology throughout his hospitalization. He was discharged back to his living facility with instructions to resume prior medical therapies and follow up with his primary medical doctor. Date of Discharge: 11/24/18 Minutes to complete discharge: 36 Discharge Summary Reason For Visit: ELEVATED TROPONIN I LEVEL/ABN ELECTROCARDIOGRAPHY Current Active Problems Abnormal EKG (Acute) Diarrhea (Acute) Troponin I above reference range (Acute) Condition: Stable - Instructions Diet, Activity, Other Instructions: You came to the hospital for reported diarrhea at your living facility. While you were here, we noted some lab abnormalities on your cardiac exam. However, we were able to rule out any dangerous acute issue with your heart. You were also noted not to have any further diarrhea. Please follow up with your primary medical doctor, Dr. Montalvo, for further evaluation within 1 week of discharge. Please resume all of your standard medications as prescribed. If you experience any further diarrhea, abdominal pain, chest pain, nausea/vomiting, shortness of breath, sudden weakness, or any other new or concerning symptom, please return to the Emergency Department. Referrals: Kal Montalvo [Primary Care Provider] - 1 Week Disposition: [facility] - Home Medications Comprehensive Discharge Medication List: Ambulatory Orders Amlodipine Besylate 10 mg PO DAILY 11/23/18 Aspirin 81 mg PO DAILY 11/23/18 Atorvastatin Calcium 80 mg PO DAILY 11/23/18 Carvedilol [Coreg -] 25 mg PO BID 11/23/18 Donepezil HCl [Aricept] 10 mg PO HS 11/23/18 Finasteride [Proscar] 5 mg PO DAILY 11/23/18 Haloperidol [Haldol -] 1 mg PO HS 11/23/18 Hydralazine HCl 50 mg PO TID 11/23/18 Insulin Glargine,Hum.rec.anlog [Lantus] 20 unit SQ HS 11/23/18 Latanoprost/Pf [Latanoprost 0.005% Eye Drop] 7.5 ml OP HS 11/23/18 Lisinopril 20 mg PO DAILY 11/23/18 Tamsulosin HCl [Flomax] 0.4 mg PO DAILY 11/23/18 This patient is new to me today: No Emergency Visit: No Critical Care patient: No - Discharge Referral Referred to [facility] No
[2018-11-24 16:22] VITALS: BMI 31.5
--- NOTE | 2018-11-24 17:46 | PN ---
Teaching Attending Note Name of Resident: Siva Miguel ATTENDING PHYSICIAN STATEMENT I saw and evaluated the patient. I reviewed the resident's note and discussed the case with the resident. I agree with the resident's findings and plan as documented. SUBJECTIVE: Feels well - no complaints. No further diarrhea. Denies abdominal pain/nausea/vomiting/melena/hematochezia/fever/chills. OBJECTIVE: Afebrile, Hemodynamically Stable. Last Vital Signs Temp Pulse Resp BP Pulse Ox 98.2 F 61 15 151/71 98 11/24/18 14:21 11/24/18 14:21 11/24/18 14:21 11/24/18 14:21 11/24/18 12:16 HEENT - Atraumatic, Normocephalic. Heart - S1, S2, RRR, soft SM Lungs - clear to auscultation. Abdomen - soft, non-tender. Bowel Sounds normal. Extremities - no edema. No calf tenderness. Neuro - AAO x 1. Moving all extremities but unable to participate in neuro exam. Laboratory Results - last 24 hr 11/23/18 11/23/18 11/24/18 21:19 22:57 00:42 WBC RBC Hgb Hct MCV MCH MCHC RDW Plt Count MPV Absolute Neuts (auto) Neutrophils % Lymphocytes % Monocytes % Eosinophils % Basophils % Nucleated RBC % PT with INR INR PTT (Actin FS) Sodium Potassium Chloride Carbon Dioxide Anion Gap BUN Creatinine Creat Clearance w eGFR POC Glucometer 278 Random Glucose Calcium Phosphorus Magnesium Creatine Kinase 230 Creatine Kinase Index 1.0 CK-MB (CK-2) 2.4 Troponin I 0.17 H 0.17 H B-Natriuretic Peptide 11/24/18 11/24/18 11/24/18 05:20 05:20 05:20 WBC RBC Hgb Hct MCV MCH MCHC RDW Plt Count MPV Absolute Neuts (auto) Neutrophils % Lymphocytes % Monocytes % Eosinophils % Basophils % Nucleated RBC % PT with INR 11.60 INR 0.98 PTT (Actin FS) 33.3 Sodium 145 Potassium 4.0 Chloride 115 H Carbon Dioxide 26 Anion Gap 3 L BUN 35 H Creatinine 1.9 H Creat Clearance w eGFR 34.64 POC Glucometer Random Glucose 108 H Calcium 7.9 L Phosphorus 3.6 Magnesium 2.2 Creatine Kinase 229 Creatine Kinase Index 0.9 CK-MB (CK-2) 2.2 Troponin I 0.16 H B-Natriuretic Peptide 429.6 11/24/18 11/24/18 11/24/18 06:30 09:28 11:20 WBC 4.7 RBC 3.90 L Hgb 11.8 Hct 35.1 L MCV 90.0 MCH 30.3 MCHC 33.6 RDW 14.3 Plt Count 200 MPV 7.3 L Absolute Neuts (auto) 2.9 Neutrophils % 61.6 Lymphocytes % 25.5 D Monocytes % 10.1 Eosinophils % 2.4 Basophils % 0.4 Nucleated RBC % 0 PT with INR INR PTT (Actin FS) Sodium Potassium Chloride Carbon Dioxide Anion Gap BUN Creatinine Creat Clearance w eGFR POC Glucometer 91 91 Random Glucose Calcium Phosphorus Magnesium Creatine Kinase Creatine Kinase Index CK-MB (CK-2) Troponin I B-Natriuretic Peptide ASSESSMENT AND PLAN: 78 year old Male with history of HTN, HLD, CKD 3, HL, Dementia, DM 2, BPH, Chronic L hemiplegia (? prior CVA), [facility]. No fever/chills/abdominal pain/melena/hematochezia/nausea/vomiting. 1. Diarrhea, etiology unclear - resolved. No sample produced for Culture and Cdiff. Afebrile/Hemodynamically Stable. 2. Troponin Egression, denies CP - no known cardiac history. Possibly sec to decreased clearance due to CKD ECG - LVH with repolarization abnormalities/inverted T waves lateral leads. CXR - Cardiomegaly Echo - Mild concentric LVH, systolic function normal, Mild . Serial TropI measurements flat - no further recommendations by Cardiology Further management as out-patient. Continue Aspirin, BB, KATHERINE-I, Statin. 3. CKD 3 - Stable. Creat at baseline. 4. HTN - Continue Lisinopril, Norvasc, Hydralazine, Coreg 5. Dementia - Continue Donepezil, Hydralazine 6. BPH -Continue Flomax, Finasteride. 7. DM 2 - Continue Levemir with sliding scale. Medically stable for discharge back to nursing facility with out-patient Cardiology follow up.
[2018-11-24] MEDS ORDERED: ATORVASTATIN CA 80 MG TABLET (FP) PO SCH (22:00)
== END 2018-11-24 14:45 ==
LOC: JER 08:55 → JERBED 16:53
PROC: 3E0337Z Introduction of Electrolytic and Water Balance Substance into Peripheral Vein, Percutaneous Approach (ICD-10-PCS; principal; 2018-11-23)
PROC: 3E013VG Introduction of Insulin into Subcutaneous Tissue, Percutaneous Approach (ICD-10-PCS; 2018-11-23)
DX: R94.31 Abnormal electrocardiogram [ECG] [EKG] (principal); R77.8 Other specified abnormalities of plasma proteins; R19.7 Diarrhea, unspecified; R05 Cough; E11.22 Type 2 diabetes mellitus with diabetic chronic kidney disease; I12.9 Hypertensive chronic kidney disease with stage 1 through stage 4 chronic kidney disease, or unspecified chronic kidney disease; N18.3 Chronic kidney disease, stage 3 (moderate); Z79.4 Long term (current) use of insulin; E78.5 Hyperlipidemia, unspecified; F01.50 Vascular dementia, unspecified severity, without behavioral disturbance, psychotic disturbance, mood disturbance, and anxiety; N40.0 Benign prostatic hyperplasia without lower urinary tract symptoms; I69.354 Hemiplegia and hemiparesis following cerebral infarction affecting left non-dominant side; R26.2 Difficulty in walking, not elsewhere classified; Z99.89 Dependence on other enabling machines and devices; Z79.82 Long term (current) use of aspirin
CPT/HCPCS: 36415; 71045-TC-FY; 80048; 80053; 80061; 82550; 82553; 82962; 83690; 83721; 83735; 83880; 84100; 84484; 85025; 85610; 85730; 93005; 93010; 93306-TC; 96360; 96372; 99285-25; G0378; J1644

== ENCOUNTER 2019-08-03 09:56 | Inpatient (IN) | payer OTHER ==
[2019-08-03] MEDS ORDERED: ALBUTEROL SO4 2.5/IPRATROPIUM 0.5 INH SOL 3 ML VIAL.NEB. NEB ONE ×2 (10:11→10:25)
[2019-08-03] MEDS ORDERED: methylPREDNISolone NA SUCC 125 MG/2 ML VIAL IVPUSH ONE (10:25)
[2019-08-03] MEDS ORDERED: MAGNESIUM SULF 50% (8.12 MEQ/2 ML-1 GM VIAL) IVPB ONE (10:52)
[2019-08-03] MEDS ORDERED: FUROSEMIDE 40 MG/4 ML INJECTABLE VIAL IVPUSH ONE ×2 (10:54→14:01)
[2019-08-03] MEDS ORDERED: methylPREDNISolone NA SUCC 125 MG/2 ML VIAL ONE (10:55)
[2019-08-03] MEDS ORDERED: NITROGLYCERIN 25MG/D5W 250ML 25 MG/250 ML ML IVPB ONE (10:55)
[2019-08-03 10:56] LABS: BASO % 0.4 % (0-2.0); EOS % 0.8 % (0-4.5); HEMATOCRIT 27.3 % (35.4-49); HEMOGLOBIN 9.2 GM/dL (11.7-16.9); LYMPH % 9.2 % (8-40); MCH 30.5 pg (25.7-33.7); MCHC 33.6 g/dl (32.0-35.9); MEAN CELL VOLUME 90.9 fl (80-96); MEAN PLT VOLUME 7.6 fl (7.5-11.1); MONO % 10.2 % (3.8-10.2); NEUT % 79.4 % (42.8-82.8); PLATELET COUNT 219 K/MM3 (134-434); RDW 14.9 % (11.9-15.9); WHITE BLOOD COUNT 7.2 K/mm3 (4.0-10.0)
[2019-08-03] MEDS ORDERED: NITROGLYCERIN 25MG/D5W 250ML 25 MG/250 ML ML IVPB SCH (11:00)
[2019-08-03] MEDS ORDERED: FUROSEMIDE 40 MG/4 ML INJECTABLE VIAL ONE (11:01)
[2019-08-03 11:10] LABS: INR 1.11 (0.83-1.09); PROTHROMBIN TIME (PATIENT) 13.1 SEC (9.7-13.0)
[2019-08-03 11:28] LABS: ALBUMIN 2.8 g/dl (3.4-5.0); BILIRUBIN,TOTAL 0.3 mg/dL (0.2-1); BLOOD UREA NITROGEN 58.8 mg/dL (7-18); CALCIUM 8.2 mg/dL (8.5-10.1); CREATININE 2.5 mg/dL (0.55-1.3); POTASSIUM 4.5 mmol/L (3.5-5.1); TOT PROT 6.8 g/dl (6.4-8.2)
[2019-08-03 11:40] LABS: URINE APPEARANCE CLEAR; URINE BILIRUBIN NEGATIVE (NEGATIVE); URINE COLOR YELLOW; URINE GLUCOSE (UA) NEGATIVE (NEGATIVE); URINE KETONE NEGATIVE (NEGATIVE); URINE LEUK ESTERASE NEGATIVE (NEGATIVE); URINE NITRITE NEGATIVE (NEGATIVE); URINE PROTEIN NEGATIVE (NEGATIVE); URINE UROBILINOGEN 0.2 mg/dL (0.2-1.0)
[2019-08-03] MEDS ORDERED: MAGNESIUM 1GM/D5W - 1 GM/100 ML IVPB IVPB ONE (12:48)
--- NOTE | 2019-08-03 13:46 | PDOC ---
Documentation entered by Aretha Cortez SCRIBE, acting as scribe for Warren Camacho MD. Warren Camacho MD: This documentation has been prepared by the Dana gamez Sammi, SCRIBE, under my direction and personally reviewed by me in its entirety. I confirm that the documentation accurately reflects all work, treatment, procedures, and medical decision making performed by me. History of Present Illness - General Chief Complaint: Shortness of Breath Stated Complaint: SHOTNESS OF BREATH Time Seen by Provider: 08/03/19 10:15 History Source: Patient - History of Present Illness Initial Comments: 08/03/19 10:58 The patient is a 78 year old male who presents to the emergency department for evaluation of progressively worsening shortness of breath since last night with a mild cough which began while he was sleeping. He denies any alleviating factors. He denies chest pain. Past History - Past Medical History Allergies/Adverse Reactions: Allergies Allergy/AdvReac Type Severity Reaction Status Date / Time No Known Allergies Allergy Verified 07/09/18 17:44 Home Medications: Ambulatory Orders Amlodipine Besylate 10 mg PO DAILY 11/23/18 Aspirin 81 mg PO DAILY 11/23/18 Atorvastatin Calcium 80 mg PO DAILY 11/23/18 Carvedilol [Coreg -] 12.5 mg PO BID 11/23/18 Finasteride [Proscar] 5 mg PO DAILY 11/23/18 Hydralazine HCl 50 mg PO TID 11/23/18 Latanoprost/Pf [Latanoprost 0.005% Eye Drop] 7.5 ml OP HS 11/23/18 Lisinopril 20 mg PO DAILY 11/23/18 Tamsulosin HCl [Flomax] 0.4 mg PO DAILY 11/23/18 Albuterol Sulfate Inhaler - [Ventolin Hfa Inhaler -] 1 puff IH BID 08/03/19 Ammonium Lactate Cream [Lac-Hydrin 12% *Cream*] 1 applic TP BID 08/03/19 Ibuprofen 400 mg PO BID 08/03/19 Insulin (Levemir) [Levemir Vial] 36 unit SQ DAILY 08/03/19 Insulin Aspart [Novolog] See Protocol SQ BID 08/03/19 Sennosides [Senna] 2 tab PO HS 08/03/19 Anemia: No Asthma: No Cancer: Yes (prostates hypertrophy) Cardiac Disorders: No CVA: Yes (stroke w/left sided weakness, uses walker 2016) COPD: No CHF: No Dementia: Yes Diabetes: Yes GI Disorders: No Disorders: No HTN: Yes Hypercholesterolemia: Yes Liver Disease: No Seizures: No Thyroid Disease: No - Surgical History Abdominal Surgery: No Appendectomy: No Cardiac Surgery: No Cholecystectomy: No Lung Surgery: No Neurologic Surgery: No Orthopedic Surgery: No - Psycho Social/Smoking Cessation Hx Smoking History: Unknown if ever smoked Have you smoked in the past 12 months: No Hx Alcohol Use: No Drug/Substance Use Hx: No Substance Use Type: None Hx Substance Use Treatment: No Review of Systems - Review of Systems Comments:: 08/03/19 11:06 CONSTITUTIONAL: No fever, no chills, no fatigue CARDIOVASCULAR: No chest pain, no palpitations RESPIRATORY: +SOB. +cough. GI: No abdominal pain, no nausea, no vomiting, no constipation, no diarrhea GENITOURINARY: No dysuria, no frequency, no hematuria MUSKULOSKELETAL: No backpain, no joint pain, no myalgias SKIN: No rash NEURO: No headache *Physical Exam - Vital Signs Last Vital Signs Temp Pulse Resp BP Pulse Ox 98.6 F 74 30 H 139/67 85 L 08/03/19 10:13 08/03/19 10:13 08/03/19 10:13 08/03/19 10:13 08/03/19 10:13 - Physical Exam Comments: 08/03/19 12:17 CONSTITUTIONAL: tachynpeic, dyspneic, obese NECK: +JVD. Supple; non-tender; no cervical lymphadenopathy CARD: Normal S1, S2; no murmurs, rubs, or gallops RESP: +Crackles and decreased air entry all lung wright ABD: +distended. Soft; non-tender; no palpable organomegaly, no palpable hernias EXT: +2 pit edema bilateral lower extremities. Normal ROM in all four extremities; non-tender to palpation; distal pulses intact SKIN: Warm, dry, no rash NEURO: No focal neurological deficiencies. Heart Score/ECG Review - ECG Impressions Comment:: 08/03/19 10:19 normal sinus rhythm chronic left ventricular hypertrophy with repolarization abnormality ED Treatment Course - LABORATORY CBC & Chemistry Diagram: 08/03/19 10:48 08/03/19 10:48 - ADDITIONAL ORDERS Additional order review: Laboratory Results 08/03/19 08/03/19 08/03/19 11:20 10:48 10:48 PT with INR 13.10 H INR 1.11 H Sodium Potassium Chloride Carbon Dioxide Anion Gap BUN Creatinine Est GFR (CKD-EPI)AfAm Est GFR (CKD-EPI)NonAf Random Glucose Calcium Total Bilirubin AST ALT Alkaline Phosphatase Creatine Kinase Creatine Kinase Index CK-MB (CK-2) Troponin I B-Natriuretic Peptide 2898.4 H Total Protein Albumin Urine Color Yellow Urine Appearance Clear Urine pH 5.0 Ur Specific Levels 1.015 Urine Protein Negative Urine Glucose (UA) Negative Urine Ketones Negative Urine Blood Negative Urine Nitrite Negative Urine Bilirubin Negative Urine Urobilinogen 0.2 Ur Leukocyte Esterase Negative 08/03/19 08/03/19 10:48 10:48 PT with INR INR Sodium 144 Potassium 4.5 Chloride 115 H Carbon Dioxide 22 Anion Gap 7 L BUN 58.8 H Creatinine 2.5 H Est GFR (CKD-EPI)AfAm 27.86 Est GFR (CKD-EPI)NonAf 24.04 Random Glucose 183 H Calcium 8.2 L Total Bilirubin 0.3 AST 26 ALT 27 Alkaline Phosphatase 68 Creatine Kinase 408 H Creatine Kinase Index 1.2 CK-MB (CK-2) 5.1 H Troponin I 0.08 H B-Natriuretic Peptide Total Protein 6.8 Albumin 2.8 L Urine Color Urine Appearance Urine pH Ur Specific Levels Urine Protein Urine Glucose (UA) Urine Ketones Urine Blood Urine Nitrite Urine Bilirubin Urine Urobilinogen Ur Leukocyte Esterase 08/03/19 10:48 RBC 3.00 L MCV 90.9 MCHC 33.6 RDW 14.9 MPV 7.6 Neutrophils % 79.4 D Lymphocytes % 9.2 D Monocytes % 10.2 Eosinophils % 0.8 Basophils % 0.4 - RADIOLOGY Radiology Studies Ordered: Category Date Time Status CHEST X-RAY PORTABLE* [RAD] Stat Radiology 08/03/19 10:25 Completed - Medications Given in the ED: ED Medications Discontinued Medications Generic Name Dose Route Start Last Admin Trade Name Freq PRN Reason Stop Dose Admin Albuterol/Ipratropium 3 amp 08/03/19 10:25 08/03/19 10:26 Duoneb - NEB 08/03/19 10:26 3 amp ONCE ONE Administration Furosemide 40 mg 08/03/19 10:54 10/23/19 11:13 Lasix Injection - IVPUSH 08/03/19 10:55 40 mg ONCE ONE Administration Magnesium Sulfate 2 gm 08/03/19 10:52 08/03/19 12:52 Magnesium Sulfate IVPB 08/03/19 10:53 Not Given ONCE ONE Methylprednisolone Sodium Succinate 125 mg 08/03/19 10:25 08/03/19 11:01 Solu-Medrol - IVPUSH 08/03/19 10:26 125 mg ONCE ONE Administration Medical Decision Making - Medical Decision Making 08/03/19 13:44 Patient is a 78-year-old male with multiple comorbidities who presents with acute dyspnea at rest and with minimal exertion, severely decreased air entry bilaterally and hypoxemia. Patient is noted to be afebrile. EKG reveals diffuse T wave inversions unchanged from previous and consistent with LVH. Chest x-ray reveals cardiomegaly and diffuse alveolar infiltrates bilaterally consistent with acute pulmonary edema. CMP reveals elevated BUN/creatinine consistent with acute renal insufficiency superimposed on chronic renal insufficiency which may be related to NSAID use. Upon arrival, patient placed on BiPAP, IV Lasix administered and nitroglycerin drip initiated. Gilbert catheter was placed for measurement of urine output. Patient screened and admitted to the ICU. Discharge - Discharge Information Problems reviewed: Yes Clinical Impression/Diagnosis: Acute pulmonary edema, Acute renal disease Condition: Guarded - Admission Yes - Follow up/Referral - Patient Discharge Instructions - Post Discharge Activity
--- NOTE | 2019-08-03 13:49 | CONSULT ---
Consult Consult Specialty:: Nephrology Reason for Consultation:: ISMA - History of Present Illness Chief Complaint: sent in for worsening shortness of breath History of Present Illness: Pt is a 78 year old male with pmhx of ckd, hld, htn, dementia, cva, boh and dm who was sent in for shortness of breath. He was found to be in pulmonary edema and in acuter renal failure. He complains of shorntess of breath but is an overall poor historian. He does have history of CKD. He was on nsaids twice a day in the [facility]. He denies fevers or chills. He denies chest pain or palpitations. - History Source History Provided By: Patient, Medical Record - Past Medical History RN ORTHO: Yes: Dementia Cardio/Vascular: Yes: HTN Renal/: Yes: Renal Inusuff - Alcohol/Substance Use Hx Alcohol Use: No - Smoking History Smoking history: Unknown if ever smoked Have you smoked in the past 12 months: No Home Medications - Allergies Allergies/Adverse Reactions: Allergies Allergy/AdvReac Type Severity Reaction Status Date / Time No Known Allergies Allergy Verified 07/09/18 17:44 - Home Medications Home Medications: Ambulatory Orders Carvedilol [Coreg -] 12.5 mg PO BID 11/23/18 Finasteride [Proscar] 5 mg PO DAILY 11/23/18 Latanoprost/Pf [Latanoprost 0.005% Eye Drop] 7.5 ml OP HS 11/23/18 RX: Amlodipine Besylate 10 mg PO DAILY 11/23/18 RX: Aspirin 81 mg PO DAILY 11/23/18 RX: Atorvastatin Calcium 80 mg PO DAILY 11/23/18 RX: Hydralazine HCl 50 mg PO TID 11/23/18 RX: Lisinopril 20 mg PO DAILY 11/23/18 Tamsulosin HCl [Flomax] 0.4 mg PO DAILY 11/23/18 Albuterol Sulfate Inhaler - [Ventolin Hfa Inhaler -] 1 puff IH BID 08/03/19 Ammonium Lactate Cream [Lac-Hydrin 12% *Cream*] 1 applic TP BID 08/03/19 Insulin (Levemir) [Levemir Vial] 36 unit SQ DAILY 08/03/19 Insulin Aspart [Novolog] See Protocol SQ BID 08/03/19 RX: Ibuprofen 400 mg PO BID 08/03/19 Sennosides [Senna] 2 tab PO HS 08/03/19 Family Medical History Family History: Denies Review of Systems - Review of Systems Constitutional: reports: Malaise Eyes: reports: No Symptoms HENT: reports: No Symptoms Neck: reports: No Symptoms Cardiovascular: reports: Edema, Shortness of Breath Respiratory: reports: Cough, SOB Gastrointestinal: reports: No Symptoms Genitourinary: reports: No Symptoms Musculoskeletal: reports: No Symptoms Integumentary: reports: No Symptoms Endocrine: reports: No Symptoms Hematology/Lymphatic: reports: No Symptoms Psychiatric: reports: No Symptoms Physical Exam Vital Signs: Vital Signs Temperature 98.6 F 08/03/19 10:13 Pulse Rate 68 08/03/19 13:26 Respiratory Rate 15 08/03/19 13:26 Blood Pressure 134/67 08/03/19 13:26 O2 Sat by Pulse Oximetry (%) 100 08/03/19 13:26 Constitutional: Yes: Mild Distress HENT: Yes: Atraumatic Neck: Yes: Supple Cardiovascular: Yes: S1, S2 Respiratory: Yes: On BiPap Gastrointestinal: Yes: Soft Renal/: Yes: Riley Present Musculoskeletal: Yes: WNL Edema: Yes Edema: LLE: 2+, RLE: 2+ Integumentary: Yes: Venous Stasis Changes Neurological: Yes: Confusion Labs: CBC, BMP 08/03/19 10:48 08/03/19 10:48 Laboratory Tests 07/09/18 11/23/18 11/24/18 19:57 09:55 05:20 WBC Hgb Plt Count Creatinine 2.0 H 2.1 H 1.9 H B-Natriuretic Peptide 08/03/19 08/03/19 08/03/19 10:48 10:48 10:48 WBC 7.2 Hgb 9.2 L Plt Count 219 Creatinine 2.5 H B-Natriuretic Peptide 2898.4 H Imaging - Results Chest X-ray: Report Reviewed Problem List - Problems (1) CKD (chronic kidney disease) Code(s): N18.9 - CHRONIC KIDNEY DISEASE, UNSPECIFIED (2) Pulmonary edema Code(s): J81.1 - CHRONIC PULMONARY EDEMA Assessment/Plan Current Medications Generic Name Dose Route Start Last Admin Trade Name Freq PRN Reason Stop Dose Admin Nitroglycerin/Dextrose 25 mg in 250 mls @ 12 mls/hr 08/03/19 11:00 08/03/19 11:13 Nitroglycerin 25mg/D5w 250ml IVPB 20 mcg/min TITR LARRY 12 mls/hr Administration 20 MCG/MIN Impression 1. ISMA 2. CKD 3. pulm edema 4. nsaid use 5. htn 6. dementia 7. dm 8. bph Plan - agree with lasix - monitor urine ouput - monitor renal function - maintain riley - cont bipap - agree with ICU admission, discussed with ICU team
--- NOTE | 2019-08-03 14:14 | CONSULT ---
Consultation: REQUESTING PROVIDER: CONSULT REQUEST: We have been asked to medically evaluate this patient for ( specify). HISTORY OF PRESENT ILLNESS: This is a 78 year old male with PMH significant for CKD, HLD, HTN, vascular dementia, CVA, DM, BPH. He was brought by EMS from [facility] with complaints of sudden onset SOB that began last night. The patient is on Bipap and drowsy, but arousable. He was laying in bed when the episode began, and reports no inciting events. He also endorses a mild, dry cough for the past few weeks. He ambulates at his assisted, and reports no SOB while walking before this episode. He had a similar episode 2 weeks ago, but has otherwise had no problems with his breathing. He uses 1 pillow at night, and had a stress test done within the past year, which did not show any abnormalities. He denies fevers, chills, chest pain, palpitations, dysuria, hematuria, abdominal pain, nausea, vomiting, diarrhea, or constipation. REVIEW OF SYSTEMS: CONSTITUTIONAL: Absent: fever, chills, diaphoresis, generalized weakness, malaise, loss of appetite, weight change HEENT: Absent: rhinorrhea, nasal congestion, throat pain, throat swelling, difficulty swallowing, mouth swelling, ear pain, eye pain, visual changes CARDIOVASCULAR: peripheral edema Absent: chest pain, syncope, palpitations, irregular heart rate, lightheadedness RESPIRATORY: cough, shortness of breath Absent: dyspnea with exertion, orthopnea, wheezing, stridor, hemoptysis GASTROINTESTINAL: Absent: abdominal pain, abdominal distension, nausea, vomiting, diarrhea, constipation, melena, hematochezia GENITOURINARY: Absent: dysuria, frequency, urgency, hesitancy, hematuria, flank pain, genital pain MUSCULOSKELETAL: Absent: myalgia, arthralgia, joint swelling, back pain, neck pain SKIN: Absent: rash, itching, pallor HEMATOLOGIC/IMMUNOLOGIC: Absent: easy bleeding, easy bruising, lymphadenopathy, frequent infections ENDOCRINE: Absent: unexplained weight gain, unexplained weight loss, heat intolerance, cold intolerance NEUROLOGIC: Absent: headache, focal weakness or paresthesias, dizziness, unsteady gait, seizure, mental status changes, bladder or bowel incontinence PSYCHIATRIC: Absent: anxiety, depression, suicidal or homicidal ideation, hallucinations. PHYSICAL EXAMINATION Vital Signs - 24 hr 08/03/19 08/03/19 08/03/19 10:13 10:24 11:10 Temperature 98.6 F Pulse Rate 74 Pulse Rate [ 75 Apical] Respiratory 30 H 16 Rate Blood Pressure 139/67 Blood Pressure 141/77 [Left Arm] O2 Sat by Pulse 85 L 97 92 L Oximetry (%) 08/03/19 08/03/19 08/03/19 11:30 11:36 11:50 Temperature Pulse Rate 73 Pulse Rate [ 72 71 Apical] Respiratory 18 16 Rate Blood Pressure Blood Pressure 136/70 126/71 [Left Arm] O2 Sat by Pulse 92 L 91 L 95 Oximetry (%) 08/03/19 08/03/19 08/03/19 12:25 12:55 13:26 Temperature Pulse Rate Pulse Rate [ 78 67 68 Apical] Respiratory 14 16 15 Rate Blood Pressure Blood Pressure 131/68 126/66 134/67 [Left Arm] O2 Sat by Pulse 97 100 Oximetry (%) GENERAL: AOx2, drowsy but arousable, on BiPap, has difficulty answering questions and falls asleep during conversation HEAD: Normal with no signs of trauma. EYES: Pupils equal, round and reactive to light, extraocular movements intact, sclera anicteric, conjunctiva clear. No lid lag. LUNGS: Coarse expiratory crackles B/L, no wheezes, no accessory muscle use. HEART: Regular rate and rhythm, normal S1 and S2 without murmur, rub or gallop. ABDOMEN: Soft, nontender, not distended, normoactive bowel sounds, no guarding, no rebound, no masses. No hepatomegaly or splenomegaly. LOWER EXTREMITIES: 2+ pitting edema B/L NEUROLOGICAL: Motor 5/5 B/L, sensations intact SKIN: Warm, dry, normal turgor, no rashes or lesions noted. Laboratory Results - last 24 hr 08/03/19 08/03/19 08/03/19 10:48 10:48 10:48 WBC 7.2 RBC 3.00 L Hgb 9.2 L Hct 27.3 L D MCV 90.9 MCH 30.5 MCHC 33.6 RDW 14.9 Plt Count 219 MPV 7.6 Absolute Neuts (auto) 5.7 Neutrophils % 79.4 D Lymphocytes % 9.2 D Monocytes % 10.2 Eosinophils % 0.8 Basophils % 0.4 Nucleated RBC % 0 PT with INR INR Sodium 144 Potassium 4.5 Chloride 115 H Carbon Dioxide 22 Anion Gap 7 L BUN 58.8 H Creatinine 2.5 H Est GFR (CKD-EPI)AfAm 27.86 Est GFR (CKD-EPI)NonAf 24.04 Random Glucose 183 H Calcium 8.2 L Total Bilirubin 0.3 AST 26 ALT 27 Alkaline Phosphatase 68 Creatine Kinase 408 H Creatine Kinase Index 1.2 CK-MB (CK-2) 5.1 H Troponin I 0.08 H B-Natriuretic Peptide Total Protein 6.8 Albumin 2.8 L Urine Color Urine Appearance Urine pH Ur Specific [place] Urine Protein Urine Glucose (UA) Urine Ketones Urine Blood Urine Nitrite Urine Bilirubin Urine Urobilinogen Ur Leukocyte Esterase 08/03/19 08/03/19 08/03/19 10:48 10:48 11:20 WBC RBC Hgb Hct MCV MCH MCHC RDW Plt Count MPV Absolute Neuts (auto) Neutrophils % Lymphocytes % Monocytes % Eosinophils % Basophils % Nucleated RBC % PT with INR 13.10 H INR 1.11 H Sodium Potassium Chloride Carbon Dioxide Anion Gap BUN Creatinine Est GFR (CKD-EPI)AfAm Est GFR (CKD-EPI)NonAf Random Glucose Calcium Total Bilirubin AST ALT Alkaline Phosphatase Creatine Kinase Creatine Kinase Index CK-MB (CK-2) Troponin I B-Natriuretic Peptide 2898.4 H Total Protein Albumin Urine Color Yellow Urine Appearance Clear Urine pH 5.0 Ur Specific [place] 1.015 Urine Protein Negative Urine Glucose (UA) Negative Urine Ketones Negative Urine Blood Negative Urine Nitrite Negative Urine Bilirubin Negative Urine Urobilinogen 0.2 Ur Leukocyte Esterase Negative Active Medications Generic Name Dose Route Start Last Admin Trade Name Freq PRN Reason Stop Dose Admin Nitroglycerin/Dextrose 25 mg in 250 mls @ 12 mls/hr 08/03/19 11:00 08/03/19 11:13 Nitroglycerin 25mg/D5w 250ml IVPB 20 mcg/min TITR LARRY 12 mls/hr Administration 20 MCG/MIN ASSESSMENT/PLAN: This is a 78 year old male with PMH significant for CKD, HLD, HTN, vascular dementia, CVA, DM, BPH. He was brought by EMS from [facility] with complaints of sudden onset SOB that began last night. #Neuro - AOx2 #Respiratory - CXR in ER: Cardiomegaly and diffuse alveolar infiltrates bilaterally consistent with acute pulmonary edema - BNP 2898, 429.6 on 11/24/18 - Placed on BiPap in ER - Solumedrol 125mg in ER - Start Lasix 80mg PO BID, given 40mg IV in ER - Continue Nitroglycerin 25mg drip, started in ER #Cardio - EKG in ER: Diffuse T wave inversions unchanged from previous and consistent with LVH - Trop 0.08, continue to trend - Last echo in 11/23 shows EF 60% - Echo ordered - Will continue Coreg 12.5mg BID (home med) - MgSO4 2gm in ER #Endo - HbA1c ordered - TSH ordered #Renal - BUN/Cr 58.8/2.5 - Ua shows no abnormalities - Gilbert placed in ER - Monitor I/Os #FEN - Ca 8.2, corrected for albumin 8.4 - NPO #DVT PE - Heparin 5000 SQ TID #Dispo - We will continue to follow the patient. Thank you for this consultative opportunity. Visit type - Emergency Visit Emergency Visit: Yes ED Registration Date: 08/03/19 Care time: The patient presented to the Emergency Department on the above date and was hospitalized for further evaluation of their emergent condition. - New Patient This patient is new to me today: Yes Date on this admission: 08/03/19 - Critical Care Critical Care patient: Yes Total Critical Care Time (in minutes): 46 Critical Care Statement: The care of this patient involved high complexity decision making to prevent further life threatening deterioration of the patient 's condition and/or to evaluate & treat vital organ system(s) failure or risk of failure. ATTENDING PHYSICIAN STATEMENT I saw and evaluated the patient. I reviewed the resident's note and discussed the case with the resident. I agree with the resident's findings and plan as documented. SUBJECTIVE: OBJECTIVE: ASSESSMENT AND PLAN:
--- NOTE | 2019-08-03 14:57 | PN ---
Teaching Attending Note Name of Resident: Livan Harper ATTENDING PHYSICIAN STATEMENT I saw and evaluated the patient. I reviewed the resident's note and discussed the case with the resident. I agree with the resident's findings and plan as documented. SUBJECTIVE: Pt seen and examined in the ER. Remains on BiPAP with intermittent desaturations and on nitro gtt. OBJECTIVE: Vital Signs Period Temp Pulse Resp BP Sys/Escoto Pulse Ox Last 24 Hr 98.6 F 65-78 14-30 123-141/62-77 85-100 Intake & Output 07/31/19 08/01/19 08/02/19 08/03/19 23:59 23:59 23:59 23:59 Output Total 675 Balance -675 Weight 94.347 kg Gen: mildly tachypneic on BiPAP, lethargic but arousable Heart: RRR Lung: distant breath sounds Abd: soft, nontender Ext: + edema CBC, BMP 08/03/19 10:48 08/03/19 10:48 Active Medications Chlorhexidine Gluconate (Hibiclens For Decolonization -) 1 applic TP HS LARRY Furosemide (Lasix Injection -) 80 mg IVPUSH BIDLASIX LARRY Heparin Sodium (Porcine) (Heparin -) 5,000 unit SQ TID LARRY Nitroglycerin/Dextrose (Nitroglycerin 25mg/D5w 250ml) 25 mg in 250 mls @ 12 mls /hr IVPB TITR LARRY Last Admin: 08/03/19 11:13 Dose: 20 mcg/min, 12 mls/hr Mupirocin (Bactroban Ointment (For Decolonization) -) 1 applic NS BID LARRY Stop: 08/08/19 21:59 ASSESSMENT AND PLAN: Acute Hypoxic Respiratory Failure Acute on Chronic Diastolic Heart Failure Acute Pulmonary Edema Acute on Chronic Renal Failure HTN DM Hyperlipidemia BPH CKD Anemia - IV lasix - monitor urine output, creatinine - daily weights - O2 to keep SpO2 >90% - BiPAP as needed to assist in work of breathing - monitor CXR - taper off nitro gtt - beta angel - trend cardiac enzymes - echocardiogram - ICU monitoring
[2019-08-03 15:09] LABS: ARTERIAL BLD GAS O2 SATURATION 95.6 % (95-98); ARTERIAL BLOOD GAS BASE EXCESS -4.9 meq/l (-2-2); ARTERIAL BLOOD GAS PCO2 45.2 mmHg (35-45); ARTERIAL BLOOD GAS PO2 93.5 mmHg (80-100); ARTERIAL BLOOD GAS pH 7.29 (7.35-7.45)
[2019-08-03 15:12] LABS: ALLENS TEST POSITIVE
--- NOTE | 2019-08-03 15:13 | EKG ---
Test Reason : Blood Pressure : / mmHG Vent. Rate : 074 BPM Atrial Rate : 074 BPM P-R Int : 150 ms QRS Dur : 088 ms QT Int : 396 ms P-R-T Axes : 043 004 188 degrees QTc Int : 439 ms NORMAL SINUS RHYTHM LEFT VENTRICULAR HYPERTROPHY WITH REPOLARIZATION ABNORMALITY ABNORMAL ECG WHEN COMPARED WITH ECG OF 24-NOV-2018 00:22, NO SIGNIFICANT CHANGE WAS FOUND Confirmed by POLINA TRIVEDI, ARIEL ([id number]) on 08/03/2019 3:12:46 PM Referred By: Confirmed By:ARIEL FISH MD
[2019-08-03 15:53] VITALS: BMI 33.4
--- NOTE | 2019-08-03 16:55 | ECHO ---
Version: 1 Name: CLEMENTE CANDELARIO Exam: Adult Echocardiogram Study Date: 08/03/2019, 2:45 PM Age: 78 Years MMode/2D Measurements & Calculations IVSd: 1.14 cm LVIDs: 3.7 cm LVIDd: 5.6 cm LVPWd: 1.16 cm LVOT diam: 2.13 cm Ao root diam: 3.0 cm LA dimension: 3.3 cm Doppler Measurements & Calculations MV E max burt: 60.2 cm/sec Med E/e': 23.8 MV A max burt: 75.0 cm/sec Med Peak E' Burt: 2.5 cm/sec MV E/A: 0.80 Lat E/e': 25.1 Lat Peak E' Ubrt: 2.40 cm/sec MR max P.7 mmHg Ao max P.3 mmHg Ao V2 max: 175.1 cm/sec PI end-d burt: 108.6 cm/sec TR max burt: 243.1 cm/sec TR max P.3 mmHg Procedure A two-dimensional transthoracic echocardiogram with color flow and Doppler was performed. The study was technically difficult with many images being suboptimal in quality. Left Ventricle There is moderate concentric left ventricular hypertrophy. The left ventricle is not well visualized . The left ventricular ejection fraction is normal. Regional wall motion abnormalities cannot be excluded due to limited visualization. Right Ventricle The right ventricle is not well visualized. Atria Normal left and right atrial size and function. Mitral Valve The mitral valve is not well visualized. There is no mitral valve stenosis. There is trace to mild m itral regurgitation. Tricuspid Valve The tricuspid valve is not well visualized. There is no tricuspid stenosis. There is mild to moderat e tricuspid regurgitation. Right ventricular systolic pressure is elevated at >60mmHg. Aortic Valve The aortic valve is not well visualized. There is moderate aortic valve thickening. There is moderat e aortic sclerosis.;. Hemodynamically significant valvular aortic stenosis cannot be excluded. No aortic regu rgitation is present. Pulmonic Valve The pulmonic valve is not well visualized. There is no pulmonic valvular stenosis. Mild pulmonic elisabeth vular regurgitation. Great Vessels The aortic root is normal size. Pericardium/Pleura There is no pericardial effusion. Summary Statements The study was technically difficult with many images being suboptimal in quality. There is moderate concentric left ventricular hypertrophy. The left ventricular ejection fraction is normal. The aortic valve is not well visualized. There is moderate aortic valve thickening. There is moderate aortic sclerosis.; Mild pulmonic valvular regurgitation. The right ventricle is not well visualized. The left ventricle is not well visualized. Regional wall motion abnormalities cannot be excluded due to limited visualization. There is mild to moderate tricuspid regurgitation. Right ventricular systolic pressure is elevated at >60mmHg. Hemodynamically significant valvular aortic stenosis cannot be excluded. There is trace to mild mitral regurgitation. MD Alfredo Alaniz 08/03/2019, 3:55 PM Ordering Physician: Jessica Srivastava Referring Physician: ELDA Performed By: Renetta Sal
[2019-08-03] MEDS ORDERED: FUROSEMIDE 40 MG/4 ML INJECTABLE VIAL IVPUSH SCH (17:00)
[2019-08-03] MEDS: FUROSEMIDE 40 MG/4 ML INJECTABLE VIAL IVPUSH SCH (17:38)
[2019-08-03] MEDS ORDERED: INSULIN SLIDING SCALE (NOVOLOG) 1 VIAL SQ SCH (18:30)
[2019-08-03] MEDS ORDERED: INSULIN (NOVOLOG) ASPART 100 UNITS/ML 10ML VIAL ONE (18:48)
[2019-08-03] MEDS: INSULIN SLIDING SCALE (NOVOLOG) 1 VIAL SQ SCH ×2 (18:50→21:36)
--- NOTE | 2019-08-03 19:03 | HP ---
Admitting History and Physical - Primary Care Physician PCP: Juan J Silver - Admission Chief Complaint: worsening sob History of Present Illness: 78 year old male with pmhx of ckd, hld, htn, dementia, cva, boh and dm who was sent in for shortness of breath. He was found to be in pulmonary edema and in acuter renal failure. He complains of shorntess of breath but is an overall poor historian. He does have history of CKD. He was on nsaids twice a day in the senior care. He denies fevers or chills. He denies chest pain or palpitations. on bipap now - Past Medical History SIDE SAWYER: Yes: CVA, Dementia Cardiovascular: Yes: HTN, Hyperlipdemia Renal/: Yes: Renal Inusuff Endocrine: Yes: Diabetes Mellitus - Smoking History Smoking history: Unknown if ever smoked Have you smoked in the past 12 months: No - Alcohol/Substance Use Hx Alcohol Use: No Home Medications - Allergies Allergies/Adverse Reactions: Allergies Allergy/AdvReac Type Severity Reaction Status Date / Time No Known Allergies Allergy Verified 07/09/18 17:44 - Home Medications Home Medications: Ambulatory Orders Aspirin 81 mg PO DAILY 11/23/18 Atorvastatin Calcium 80 mg PO DAILY 11/23/18 Finasteride [Proscar] 5 mg PO DAILY 11/23/18 Latanoprost/Pf [Latanoprost 0.005% Eye Drop] 7.5 ml OP HS 11/23/18 Tamsulosin HCl [Flomax] 0.4 mg PO DAILY 11/23/18 Albuterol Sulfate Inhaler - [Ventolin Hfa Inhaler -] 1 puff IH BID 08/03/19 Ammonium Lactate Cream [Lac-Hydrin 12% *Cream*] 1 applic TP BID 08/03/19 Insulin (Levemir) [Levemir Vial] 36 unit SQ DAILY 08/03/19 Insulin Aspart [Novolog] See Protocol SQ BID 08/03/19 Sennosides [Senna] 2 tab PO HS 08/03/19 Carvedilol [Coreg -] 25 mg PO BID #60 tablet 08/08/19 Furosemide [Lasix -] 100 mg PO DAILY #20 tablet 08/08/19 Lisinopril [Prinivil] 10 mg PO DAILY #30 tablet 08/08/19 Physical Examination Vital Signs: Vital Signs Temperature 97.7 F 10/23/19 14:20 Pulse Rate 65 08/03/19 17:00 Respiratory Rate 15 08/03/19 17:00 Blood Pressure 117/60 08/03/19 17:00 O2 Sat by Pulse Oximetry (%) 97 08/03/19 18:20 Constitutional: Yes: No Distress HENT: Yes: Atraumatic Neck: Yes: Supple Cardiovascular: Yes: Regular Rate and Rhythm Respiratory: Yes: CTA Bilaterally Gastrointestinal: Yes: Normal Bowel Sounds Extremities: Yes: WNL Edema: No Neurological: Yes: Alert, Oriented Labs: CBC, BMP 08/03/19 10:48 08/03/19 10:48 Problem List - Problems (1) CKD (chronic kidney disease) Assessment/Plan: fu labs renal consult stable Code(s): N18.9 - CHRONIC KIDNEY DISEASE, UNSPECIFIED (2) Pulmonary edema Assessment/Plan: iv lasix doing well Code(s): J81.1 - CHRONIC PULMONARY EDEMA (3) HTN (hypertension) Assessment/Plan: on meds stable Code(s): I10 - ESSENTIAL (PRIMARY) HYPERTENSION Assessment/Plan Laboratory Tests 08/03/19 08/03/19 08/03/19 10:48 10:48 10:48 WBC 7.2 RBC 3.00 L Hgb 9.2 L Hct 27.3 L D MCV 90.9 MCH 30.5 MCHC 33.6 RDW 14.9 Plt Count 219 MPV 7.6 Absolute Neuts (auto) 5.7 Neutrophils % 79.4 D Lymphocytes % 9.2 D Monocytes % 10.2 Eosinophils % 0.8 Basophils % 0.4 Nucleated RBC % 0 PT with INR INR Anticoagulation Therapy Puncture Site ABG pH ABG pCO2 at Pt Temp ABG pO2 at Pt Temp ABG HCO3 ABG O2 Sat (Measured) ABG O2 Content ABG Base Excess Juan Antonio Test O2 Delivery Device Oxygen Flow Rate Vent Mode Vent Rate Mechanical Rate PEEP Pressure Support Vent Sodium 144 Potassium 4.5 Chloride 115 H Carbon Dioxide 22 Anion Gap 7 L BUN 58.8 H Creatinine 2.5 H Est GFR (CKD-EPI)AfAm 27.86 Est GFR (CKD-EPI)NonAf 24.04 POC Glucometer Random Glucose 183 H Calcium 8.2 L Total Bilirubin 0.3 AST 26 ALT 27 Alkaline Phosphatase 68 Creatine Kinase 408 H Creatine Kinase Index 1.2 CK-MB (CK-2) 5.1 H Troponin I 0.08 H B-Natriuretic Peptide Total Protein 6.8 Albumin 2.8 L Urine Color Urine Appearance Urine pH Ur Specific [place] Urine Protein Urine Glucose (UA) Urine Ketones Urine Blood Urine Nitrite Urine Bilirubin Urine Urobilinogen Ur Leukocyte Esterase 08/03/19 08/03/19 08/03/19 10:48 10:48 11:20 WBC RBC Hgb Hct MCV MCH MCHC RDW Plt Count MPV Absolute Neuts (auto) Neutrophils % Lymphocytes % Monocytes % Eosinophils % Basophils % Nucleated RBC % PT with INR 13.10 H INR 1.11 H Anticoagulation Therapy Puncture Site ABG pH ABG pCO2 at Pt Temp ABG pO2 at Pt Temp ABG HCO3 ABG O2 Sat (Measured) ABG O2 Content ABG Base Excess Juan Antonio Test O2 Delivery Device Oxygen Flow Rate Vent Mode Vent Rate Mechanical Rate PEEP Pressure Support Vent Sodium Potassium Chloride Carbon Dioxide Anion Gap BUN Creatinine Est GFR (CKD-EPI)AfAm Est GFR (CKD-EPI)NonAf POC Glucometer Random Glucose Calcium Total Bilirubin AST ALT Alkaline Phosphatase Creatine Kinase Creatine Kinase Index CK-MB (CK-2) Troponin I B-Natriuretic Peptide 2898.4 H Total Protein Albumin Urine Color Yellow Urine Appearance Clear Urine pH 5.0 Ur Specific [place] 1.015 Urine Protein Negative Urine Glucose (UA) Negative Urine Ketones Negative Urine Blood Negative Urine Nitrite Negative Urine Bilirubin Negative Urine Urobilinogen 0.2 Ur Leukocyte Esterase Negative 08/03/19 08/03/19 08/03/19 15:00 17:00 18:09 WBC RBC Hgb Hct MCV MCH MCHC RDW Plt Count MPV Absolute Neuts (auto) Neutrophils % Lymphocytes % Monocytes % Eosinophils % Basophils % Nucleated RBC % PT with INR INR Anticoagulation Therapy No Result Required. Puncture Site Right radial ABG pH 7.29 L ABG pCO2 at Pt Temp 45.2 H ABG pO2 at Pt Temp 93.5 ABG HCO3 20.9 L ABG O2 Sat (Measured) 95.6 ABG O2 Content 12.4 ABG Base Excess -4.9 L Juan Antonio Test Positive O2 Delivery Device bipap Oxygen Flow Rate 40 Vent Mode s/t Vent Rate 12 Mechanical Rate No Result Required. PEEP 0.0 Pressure Support Vent 14/6 Sodium Potassium Chloride Carbon Dioxide Anion Gap BUN Creatinine Est GFR (CKD-EPI)AfAm Est GFR (CKD-EPI)NonAf POC Glucometer 280 Random Glucose Calcium Total Bilirubin AST ALT Alkaline Phosphatase Creatine Kinase 326 H Creatine Kinase Index CK-MB (CK-2) Troponin I 0.07 H B-Natriuretic Peptide Total Protein Albumin Urine Color Urine Appearance Urine pH Ur Specific [place] Urine Protein Urine Glucose (UA) Urine Ketones Urine Blood Urine Nitrite Urine Bilirubin Urine Urobilinogen Ur Leukocyte Esterase Active Medications Generic Name Dose Route Start Last Admin Trade Name Freq PRN Reason Stop Dose Admin Carvedilol 12.5 mg 08/03/19 22:00 Coreg - PO BID LARRY Chlorhexidine Gluconate 1 applic 08/03/19 22:00 Hibiclens For Decolonization - TP HS LARRY Furosemide 80 mg 08/03/19 18:00 08/03/19 17:38 Lasix Injection - IVPUSH 80 mg BIDLASIX LARRY Administration Heparin Sodium (Porcine) 5,000 unit 08/03/19 22:00 Heparin - SQ TID LARRY Nitroglycerin/Dextrose 25 mg in 250 mls @ 12 mls/hr 08/03/19 11:00 08/03/19 11:13 Nitroglycerin 25mg/D5w 250ml IVPB 20 mcg/min TITR LARRY 12 mls/hr Administration 20 MCG/MIN Insulin Aspart 1 vial 08/03/19 22:00 08/03/19 18:50 Novolog Vial Sliding Scale - SQ 6 units Q4HPO LARRY Administration Protocol Mupirocin 1 applic 08/03/19 22:00 Bactroban Ointment (For Decolonization) - NS 08/08/19 21:59 BID LARRY ASSESSMENT AND PLAN: Acute Hypoxic Respiratory Failure Acute on Chronic Diastolic Heart Failure Acute Pulmonary Edema Acute on Chronic Renal Failure HTN DM Hyperlipidemia BPH CKD Anemia cc time ...60 min
[2019-08-03] MEDS: CARVEDILOL 12.5 MG TABLET (FP) PO SCH (21:33)
[2019-08-03] MEDS: HEPARIN NA (PORCINE) 5,000 UNITS/ML 1ML VIAL SQ SCH (21:33)
[2019-08-03] MEDS ORDERED: CHLORHEXIDINE GLUCONATE 4% CLEANSER FOR DECOLONIZATION TP SCH (22:00)
[2019-08-03] MEDS ORDERED: MUPIROCIN 2% TOPICAL OINTMENT FOR DECOLONIZATION NS SCH (22:00)
[2019-08-04] MEDS: INSULIN SLIDING SCALE (NOVOLOG) 1 VIAL SQ SCH ×7 (01:26→21:35)
[2019-08-04] MEDS: HEPARIN NA (PORCINE) 5,000 UNITS/ML 1ML VIAL SQ SCH ×3 (06:19→21:04)
[2019-08-04] MEDS: FUROSEMIDE 40 MG/4 ML INJECTABLE VIAL IVPUSH SCH ×2 (06:19→14:19)
--- NOTE | 2019-08-04 07:44 | PN ---
Physical Exam: SUBJECTIVE: Patient seen and examined by the bedside. States that he is hungry. No acute overnight events, not complaining of any chest pain. OBJECTIVE: Vital Signs Period Temp Pulse Resp BP Sys/[place] Pulse Ox Last 24 Hr 97.7 F-98.6 F 58-78 13-30 104-143/46-98 85-100 GENERAL: AOx2, drowsy but arousable, on BiPap, has difficulty answering questions and falls asleep during conversation HEAD: Normal with no signs of trauma. EYES: Pupils equal, round and reactive to light, extraocular movements intact, sclera anicteric, conjunctiva clear. No lid lag. LUNGS: Coarse expiratory crackles B/L, no wheezes, no accessory muscle use. HEART: Regular rate and rhythm, normal S1 and S2 without murmur, rub or gallop. ABDOMEN: Soft, nontender, not distended, normoactive bowel sounds, no guarding, no rebound, no masses. No hepatomegaly or splenomegaly. LOWER EXTREMITIES: 2+ pitting edema B/L NEUROLOGICAL: Motor 5/5 B/L, sensations intact SKIN: Warm, dry, normal turgor, no rashes or lesions noted. Laboratory Results - last 24 hr 08/03/19 08/03/19 08/03/19 10:48 10:48 10:48 WBC 7.2 RBC 3.00 L Hgb 9.2 L Hct 27.3 L D MCV 90.9 MCH 30.5 MCHC 33.6 RDW 14.9 Plt Count 219 MPV 7.6 Absolute Neuts (auto) 5.7 Neutrophils % 79.4 D Lymphocytes % 9.2 D Monocytes % 10.2 Eosinophils % 0.8 Basophils % 0.4 Nucleated RBC % 0 PT with INR INR Anticoagulation Therapy Puncture Site ABG pH ABG pCO2 at Pt Temp ABG pO2 at Pt Temp ABG HCO3 ABG O2 Sat (Measured) ABG O2 Content ABG Base Excess Juan Antonio Test O2 Delivery Device Oxygen Flow Rate Vent Mode Vent Rate Mechanical Rate PEEP Pressure Support Vent Sodium 144 Potassium 4.5 Chloride 115 H Carbon Dioxide 22 Anion Gap 7 L BUN 58.8 H Creatinine 2.5 H Est GFR (CKD-EPI)AfAm 27.86 Est GFR (CKD-EPI)NonAf 24.04 POC Glucometer Random Glucose 183 H Calcium 8.2 L Total Bilirubin 0.3 AST 26 ALT 27 Alkaline Phosphatase 68 Creatine Kinase 408 H Creatine Kinase Index 1.2 CK-MB (CK-2) 5.1 H Troponin I 0.08 H B-Natriuretic Peptide Total Protein 6.8 Albumin 2.8 L Urine Color Urine Appearance Urine pH Ur Specific [place] Urine Protein Urine Glucose (UA) Urine Ketones Urine Blood Urine Nitrite Urine Bilirubin Urine Urobilinogen Ur Leukocyte Esterase 08/03/19 08/03/19 08/03/19 10:48 10:48 11:20 WBC RBC Hgb Hct MCV MCH MCHC RDW Plt Count MPV Absolute Neuts (auto) Neutrophils % Lymphocytes % Monocytes % Eosinophils % Basophils % Nucleated RBC % PT with INR 13.10 H INR 1.11 H Anticoagulation Therapy Puncture Site ABG pH ABG pCO2 at Pt Temp ABG pO2 at Pt Temp ABG HCO3 ABG O2 Sat (Measured) ABG O2 Content ABG Base Excess Juan Antonio Test O2 Delivery Device Oxygen Flow Rate Vent Mode Vent Rate Mechanical Rate PEEP Pressure Support Vent Sodium Potassium Chloride Carbon Dioxide Anion Gap BUN Creatinine Est GFR (CKD-EPI)AfAm Est GFR (CKD-EPI)NonAf POC Glucometer Random Glucose Calcium Total Bilirubin AST ALT Alkaline Phosphatase Creatine Kinase Creatine Kinase Index CK-MB (CK-2) Troponin I B-Natriuretic Peptide 2898.4 H Total Protein Albumin Urine Color Yellow Urine Appearance Clear Urine pH 5.0 Ur Specific [place] 1.015 Urine Protein Negative Urine Glucose (UA) Negative Urine Ketones Negative Urine Blood Negative Urine Nitrite Negative Urine Bilirubin Negative Urine Urobilinogen 0.2 Ur Leukocyte Esterase Negative 08/03/19 08/03/19 08/03/19 15:00 17:00 18:09 WBC RBC Hgb Hct MCV MCH MCHC RDW Plt Count MPV Absolute Neuts (auto) Neutrophils % Lymphocytes % Monocytes % Eosinophils % Basophils % Nucleated RBC % PT with INR INR Anticoagulation Therapy No Result Required. Puncture Site Right radial ABG pH 7.29 L ABG pCO2 at Pt Temp 45.2 H ABG pO2 at Pt Temp 93.5 ABG HCO3 20.9 L ABG O2 Sat (Measured) 95.6 ABG O2 Content 12.4 ABG Base Excess -4.9 L Juan Antonio Test Positive O2 Delivery Device bipap Oxygen Flow Rate 40 Vent Mode s/t Vent Rate 12 Mechanical Rate No Result Required. PEEP 0.0 Pressure Support Vent 14/6 Sodium Potassium Chloride Carbon Dioxide Anion Gap BUN Creatinine Est GFR (CKD-EPI)AfAm Est GFR (CKD-EPI)NonAf POC Glucometer 280 Random Glucose Calcium Total Bilirubin AST ALT Alkaline Phosphatase Creatine Kinase 326 H Creatine Kinase Index 1.4 CK-MB (CK-2) 4.6 H Troponin I 0.07 H B-Natriuretic Peptide Total Protein Albumin Urine Color Urine Appearance Urine pH Ur Specific [place] Urine Protein Urine Glucose (UA) Urine Ketones Urine Blood Urine Nitrite Urine Bilirubin Urine Urobilinogen Ur Leukocyte Esterase 08/03/19 08/04/19 08/04/19 21:25 01:24 06:11 WBC RBC Hgb Hct MCV MCH MCHC RDW Plt Count MPV Absolute Neuts (auto) Neutrophils % Lymphocytes % Monocytes % Eosinophils % Basophils % Nucleated RBC % PT with INR INR Anticoagulation Therapy Puncture Site ABG pH ABG pCO2 at Pt Temp ABG pO2 at Pt Temp ABG HCO3 ABG O2 Sat (Measured) ABG O2 Content ABG Base Excess Juan Antonio Test O2 Delivery Device Oxygen Flow Rate Vent Mode Vent Rate Mechanical Rate PEEP Pressure Support Vent Sodium Potassium Chloride Carbon Dioxide Anion Gap BUN Creatinine Est GFR (CKD-EPI)AfAm Est GFR (CKD-EPI)NonAf POC Glucometer 279 254 204 Random Glucose Calcium Total Bilirubin AST ALT Alkaline Phosphatase Creatine Kinase Creatine Kinase Index CK-MB (CK-2) Troponin I B-Natriuretic Peptide Total Protein Albumin Urine Color Urine Appearance Urine pH Ur Specific [place] Urine Protein Urine Glucose (UA) Urine Ketones Urine Blood Urine Nitrite Urine Bilirubin Urine Urobilinogen Ur Leukocyte Esterase Active Medications Generic Name Dose Route Start Last Admin Trade Name Freq PRN Reason Stop Dose Admin Carvedilol 12.5 mg 08/03/19 22:00 08/03/19 21:33 Coreg - PO 12.5 mg BID LARRY Administration Chlorhexidine Gluconate 1 applic 08/03/19 22:00 08/03/19 21:33 Hibiclens For Decolonization - TP 1 applic HS LARRY Administration Furosemide 80 mg 08/03/19 18:00 08/04/19 06:19 Lasix Injection - IVPUSH 80 mg BIDLASIX LARRY Administration Heparin Sodium (Porcine) 5,000 unit 08/03/19 22:00 08/04/19 06:19 Heparin - SQ 5,000 unit TID LARRY Administration Nitroglycerin/Dextrose 25 mg in 250 mls @ 12 mls/hr 08/03/19 11:00 08/03/19 23:46 Nitroglycerin 25mg/D5w 250ml IVPB 5 mcg/min TITR LARRY 3 mls/hr Titration 20 MCG/MIN Insulin Aspart 1 vial 08/03/19 22:00 08/04/19 06:19 Novolog Vial Sliding Scale - SQ 4 units Q4HPO LARRY Administration Protocol Mupirocin 1 applic 08/03/19 22:00 08/03/19 21:34 Bactroban Ointment (For Decolonization) - NS 08/08/19 21:59 1 applic BID LARRY Administration ASSESSMENT/PLAN: This is a 78 year old male with PMH significant for CKD, HLD, HTN, vascular dementia, CVA, DM, BPH. He was brought by EMS from [facility] with complaints of sudden onset SOB that began last night. #Neuro - AOx2 #Respiratory - CXR in ER: Cardiomegaly and diffuse alveolar infiltrates bilaterally consistent with acute pulmonary edema - ABG pH 7.29, CO2 45.2, HCO3 20.9, Resp acidosis - BNP 2898, 429.6 on 11/24/18 - On BiPap - Lasix 80mg PO BID - Weaned off Nitro drip #Cardio - EKG in ER: Diffuse T wave inversions unchanged from previous and consistent with LVH - Trop 0.08 -> 0.07 -> 0.04 - Echo 08/03: EF 'normal;, RSVP >60, last echo in 12/28 60% - Will continue Coreg 12.5mg BID (home med) #Endo - HbA1c 8.1% - TSH 0.56 #Renal - BUN/Cr 58.8/2.5 -> 72.6/2.5 - UA shows no abnormalities - Gilbert placed in ER - Monitor I/Os #FEN - Ca 8.1, Albumin 2.6, Ca corrected for albumin 9.2 - Diabetic diet #DVT PE - Heparin 5000 SQ TID #Dispo - Stable for transfer to [facility] ATTENDING PHYSICIAN STATEMENT I saw and evaluated the patient. I reviewed the resident's note and discussed the case with the resident. I agree with the resident's findings and plan as documented. SUBJECTIVE: OBJECTIVE: ASSESSMENT AND PLAN:
[2019-08-04 08:20] LABS: BASO % 0.1 % (0-2.0); HEMATOCRIT 28.5 % (35.4-49); HEMOGLOBIN 9.5 GM/dL (11.7-16.9); LYMPH % 4.1 % (8-40); MCH 30.3 pg (25.7-33.7); MCHC 33.1 g/dl (32.0-35.9); MEAN CELL VOLUME 91.4 fl (80-96); MEAN PLT VOLUME 7.8 fl (7.5-11.1); MONO % 6.6 % (3.8-10.2); NEUT % 89.2 % (42.8-82.8); PLATELET COUNT 238 K/MM3 (134-434); RBC 3.12 M/mm3 (4.00-5.60); RDW 15.2 % (11.9-15.9); WHITE BLOOD COUNT 10.4 K/mm3 (4.0-10.0)
[2019-08-04 09:15] LABS: ALBUMIN 2.6 g/dl (3.4-5.0); BILIRUBIN,TOTAL 0.3 mg/dL (0.2-1); BLOOD UREA NITROGEN 72.6 mg/dL (7-18); CALCIUM 8.1 mg/dL (8.5-10.1); CREATININE 2.5 mg/dL (0.55-1.3); MAGNESIUM 2.4 mg/dL (1.8-2.4); PHOSPHOROUS 5.7 mg/dL (2.5-4.9); POTASSIUM 4.2 mmol/L (3.5-5.1); TOT PROT 6.4 g/dl (6.4-8.2)
[2019-08-04] MEDS: CARVEDILOL 12.5 MG TABLET (FP) PO SCH (09:47)
--- NOTE | 2019-08-04 11:05 | PN ---
Teaching Attending Note Name of Resident: Livan Harper ATTENDING PHYSICIAN STATEMENT I saw and evaluated the patient. I reviewed the resident's note and discussed the case with the resident. I agree with the resident's findings and plan as documented. SUBJECTIVE: Patient seen and examined in the ICU. Awake and alert. Reports breathing is improving. Remains on low dose IV NTG drip. OBJECTIVE: Intake & Output 08/01/19 08/02/19 08/03/19 08/04/19 23:59 23:59 23:59 23:59 Intake Total 48 42 Output Total 1425 1000 Balance -1377 -958 Weight 233 lb 0.458 oz 229 lb 7 oz Last Vital Signs Temp Pulse Resp BP Pulse Ox 97.4 F L 73 16 137/79 97 08/04/19 10:00 08/04/19 10:00 08/04/19 10:00 08/04/19 10:00 08/04/19 09:00 Active Medications Carvedilol (Coreg -) 12.5 mg PO BID [facility] Last Admin: 08/04/19 09:47 Dose: 12.5 mg Chlorhexidine Gluconate (Hibiclens For Decolonization -) 1 applic TP HS [facility] Last Admin: 08/03/19 21:33 Dose: 1 applic Furosemide (Lasix Injection -) 80 mg IVPUSH BIDLASIX [facility] Last Admin: 08/04/19 06:19 Dose: 80 mg Heparin Sodium (Porcine) (Heparin -) 5,000 unit SQ TID [facility] Last Admin: 08/04/19 06:19 Dose: 5,000 unit Nitroglycerin/Dextrose (Nitroglycerin 25mg/D5w 250ml) 25 mg in 250 mls @ 12 mls /hr IVPB TITR [facility] Last Titration: 08/03/19 23:46 Dose: 5 mcg/min, 3 mls/hr Insulin Aspart (Novolog Vial Sliding Scale -) 1 vial SQ Q4HPO [facility]; Protocol Last Admin: 08/04/19 06:19 Dose: 4 units Mupirocin (Bactroban Ointment (For Decolonization) -) 1 applic NS BID [facility] Stop: 08/08/19 21:59 Last Admin: 08/03/19 21:34 Dose: 1 applic Gen: Awake and alert, mildly tachypneic on NC O2 Heart: RRR Lung: Bibasilar rales, no wheeze Abd: soft, nontender Ext: + edema [employer]: Non-focal Laboratory Results - last 24 hr 08/03/19 08/03/19 08/03/19 10:48 10:48 10:48 WBC RBC Hgb Hct MCV MCH MCHC RDW Plt Count MPV Absolute Neuts (auto) Neutrophils % Lymphocytes % Monocytes % Eosinophils % Basophils % Nucleated RBC % PT with INR 13.10 H INR 1.11 H Anticoagulation Therapy Puncture Site ABG pH ABG pCO2 at Pt Temp ABG pO2 at Pt Temp ABG HCO3 ABG O2 Sat (Measured) ABG O2 Content ABG Base Excess Juan Antonio Test O2 Delivery Device Oxygen Flow Rate Vent Mode Vent Rate Mechanical Rate PEEP Pressure Support Vent Sodium 144 Potassium 4.5 Chloride 115 H Carbon Dioxide 22 Anion Gap 7 L BUN 58.8 H Creatinine 2.5 H Est GFR (CKD-EPI)AfAm 27.86 Est GFR (CKD-EPI)NonAf 24.04 POC Glucometer Random Glucose 183 H Hemoglobin A1c % Calcium 8.2 L Phosphorus Magnesium Total Bilirubin 0.3 AST 26 ALT 27 Alkaline Phosphatase 68 Creatine Kinase 408 H Creatine Kinase Index 1.2 CK-MB (CK-2) 5.1 H Troponin I 0.08 H B-Natriuretic Peptide Total Protein 6.8 Albumin 2.8 L TSH Urine Color Urine Appearance Urine pH Ur Specific [place] Urine Protein Urine Glucose (UA) Urine Ketones Urine Blood Urine Nitrite Urine Bilirubin Urine Urobilinogen Ur Leukocyte Esterase 08/03/19 08/03/19 08/03/19 10:48 11:20 15:00 WBC RBC Hgb Hct MCV MCH MCHC RDW Plt Count MPV Absolute Neuts (auto) Neutrophils % Lymphocytes % Monocytes % Eosinophils % Basophils % Nucleated RBC % PT with INR INR Anticoagulation Therapy No Result Required. Puncture Site Right radial ABG pH 7.29 L ABG pCO2 at Pt Temp 45.2 H ABG pO2 at Pt Temp 93.5 ABG HCO3 20.9 L ABG O2 Sat (Measured) 95.6 ABG O2 Content 12.4 ABG Base Excess -4.9 L Juan Antonio Test Positive O2 Delivery Device bipap Oxygen Flow Rate 40 Vent Mode s/t Vent Rate 12 Mechanical Rate No Result Required. PEEP 0.0 Pressure Support Vent 14/6 Sodium Potassium Chloride Carbon Dioxide Anion Gap BUN Creatinine Est GFR (CKD-EPI)AfAm Est GFR (CKD-EPI)NonAf POC Glucometer Random Glucose Hemoglobin A1c % Calcium Phosphorus Magnesium Total Bilirubin AST ALT Alkaline Phosphatase Creatine Kinase Creatine Kinase Index CK-MB (CK-2) Troponin I B-Natriuretic Peptide 2898.4 H Total Protein Albumin TSH Urine Color Yellow Urine Appearance Clear Urine pH 5.0 Ur Specific [place] 1.015 Urine Protein Negative Urine Glucose (UA) Negative Urine Ketones Negative Urine Blood Negative Urine Nitrite Negative Urine Bilirubin Negative Urine Urobilinogen 0.2 Ur Leukocyte Esterase Negative 08/03/19 08/03/19 08/03/19 17:00 18:09 21:25 WBC RBC Hgb Hct MCV MCH MCHC RDW Plt Count MPV Absolute Neuts (auto) Neutrophils % Lymphocytes % Monocytes % Eosinophils % Basophils % Nucleated RBC % PT with INR INR Anticoagulation Therapy Puncture Site ABG pH ABG pCO2 at Pt Temp ABG pO2 at Pt Temp ABG HCO3 ABG O2 Sat (Measured) ABG O2 Content ABG Base Excess Juan Antonio Test O2 Delivery Device Oxygen Flow Rate Vent Mode Vent Rate Mechanical Rate PEEP Pressure Support Vent Sodium Potassium Chloride Carbon Dioxide Anion Gap BUN Creatinine Est GFR (CKD-EPI)AfAm Est GFR (CKD-EPI)NonAf POC Glucometer 280 279 Random Glucose Hemoglobin A1c % Calcium Phosphorus Magnesium Total Bilirubin AST ALT Alkaline Phosphatase Creatine Kinase 326 H Creatine Kinase Index 1.4 CK-MB (CK-2) 4.6 H Troponin I 0.07 H B-Natriuretic Peptide Total Protein Albumin TSH Urine Color Urine Appearance Urine pH Ur Specific [place] Urine Protein Urine Glucose (UA) Urine Ketones Urine Blood Urine Nitrite Urine Bilirubin Urine Urobilinogen Ur Leukocyte Esterase 08/04/19 08/04/19 08/04/19 01:24 06:11 08:00 WBC 10.4 H RBC 3.12 L Hgb 9.5 L Hct 28.5 L MCV 91.4 MCH 30.3 MCHC 33.1 RDW 15.2 Plt Count 238 MPV 7.8 Absolute Neuts (auto) 9.3 H Neutrophils % 89.2 H Lymphocytes % 4.1 L D Monocytes % 6.6 Eosinophils % 0.0 D Basophils % 0.1 Nucleated RBC % 0 PT with INR INR Anticoagulation Therapy Puncture Site ABG pH ABG pCO2 at Pt Temp ABG pO2 at Pt Temp ABG HCO3 ABG O2 Sat (Measured) ABG O2 Content ABG Base Excess Juan Antonio Test O2 Delivery Device Oxygen Flow Rate Vent Mode Vent Rate Mechanical Rate PEEP Pressure Support Vent Sodium Potassium Chloride Carbon Dioxide Anion Gap BUN Creatinine Est GFR (CKD-EPI)AfAm Est GFR (CKD-EPI)NonAf POC Glucometer 254 204 Random Glucose Hemoglobin A1c % Calcium Phosphorus Magnesium Total Bilirubin AST ALT Alkaline Phosphatase Creatine Kinase Creatine Kinase Index CK-MB (CK-2) Troponin I B-Natriuretic Peptide Total Protein Albumin TSH Urine Color Urine Appearance Urine pH Ur Specific [place] Urine Protein Urine Glucose (UA) Urine Ketones Urine Blood Urine Nitrite Urine Bilirubin Urine Urobilinogen Ur Leukocyte Esterase 08/04/19 08/04/19 08:00 08:00 WBC RBC Hgb Hct MCV MCH MCHC RDW Plt Count MPV Absolute Neuts (auto) Neutrophils % Lymphocytes % Monocytes % Eosinophils % Basophils % Nucleated RBC % PT with INR INR Anticoagulation Therapy Puncture Site ABG pH ABG pCO2 at Pt Temp ABG pO2 at Pt Temp ABG HCO3 ABG O2 Sat (Measured) ABG O2 Content ABG Base Excess Juan Antonio Test O2 Delivery Device Oxygen Flow Rate Vent Mode Vent Rate Mechanical Rate PEEP Pressure Support Vent Sodium 146 H Potassium 4.2 Chloride 113 H Carbon Dioxide 25 Anion Gap 7 L BUN 72.6 H Creatinine 2.5 H Est GFR (CKD-EPI)AfAm 27.86 Est GFR (CKD-EPI)NonAf 24.04 POC Glucometer Random Glucose 198 H Hemoglobin A1c % 8.1 H Calcium 8.1 L Phosphorus 5.7 H Magnesium 2.4 Total Bilirubin 0.3 AST 19 ALT 24 Alkaline Phosphatase 66 Creatine Kinase 283 Creatine Kinase Index 1.4 CK-MB (CK-2) 4.0 H Troponin I 0.04 B-Natriuretic Peptide Total Protein 6.4 Albumin 2.6 L TSH 0.56 Urine Color Urine Appearance Urine pH Ur Specific [place] Urine Protein Urine Glucose (UA) Urine Ketones Urine Blood Urine Nitrite Urine Bilirubin Urine Urobilinogen Ur Leukocyte Esterase ASSESSMENT AND PLAN: Acute Hypoxic Respiratory Failure Acute on Chronic Diastolic Heart Failure Acute Pulmonary Edema Acute on Chronic Renal Failure HTN DM Hyperlipidemia BPH CKD Anemia - IV lasix - monitor urine output, creatinine - daily weights - O2 to keep SpO2 >90% - BiPAP as needed to assist in work of breathing - monitor CXR - taper off nitro gtt - beta angel - trend cardiac enzymes - echocardiogram - ICU monitoring Dr Weaver
--- NOTE | 2019-08-04 13:32 | CON.CARD ---
Cardiology Consult (text) - Consultation Consultation Note: cc: sob hpi: 78 m hx dementia, hld, htn, dm, ckd, here sent from [place] with sob. Hx limited by dementia. Pt reports he has been sob. No cp palps dizzy loc le edema. Found to have chf, getting iv lasix, feeling better. pmh: per hpi psh: nc social: no tob fam: unknown ros: unable to obtain 2/2 dementia meds: Home Medications Medication Instructions Recorded Amlodipine Besylate 10 mg PO DAILY 11/23/18 Aspirin 81 mg PO DAILY 11/23/18 Atorvastatin Calcium 80 mg PO DAILY 11/23/18 Carvedilol [Coreg -] 12.5 mg PO BID 11/23/18 Finasteride [Proscar] 5 mg PO DAILY 11/23/18 Hydralazine HCl 50 mg PO TID 11/23/18 Latanoprost/Pf [Latanoprost 0.005% 7.5 ml OP HS 11/23/18 Eye Drop] Lisinopril 20 mg PO DAILY 11/23/18 Tamsulosin HCl [Flomax] 0.4 mg PO DAILY 11/23/18 Albuterol Sulfate Inhaler - 1 puff IH BID 08/03/19 [Ventolin Hfa Inhaler -] Ammonium Lactate Cream [Lac-Hydrin 1 applic TP BID 08/03/19 12% *Cream*] Ibuprofen 400 mg PO BID 08/03/19 Insulin (Levemir) [Levemir Vial] 36 unit SQ DAILY 08/03/19 Insulin Aspart [Novolog] See Protocol SQ BID 08/03/19 Sennosides [Senna] 2 tab PO HS 08/03/19 Vital Signs Period Temp Pulse Resp BP Sys/Escoto Pulse Ox Last 24 Hr 97.4 F-98 F 58-73 13-18 104-143/46-98 96-100 nad no jvd rrr s1s2 no mrg rhonchi bl, nl eff awake but drowsy, answers simple questions abd nt nd pos bs no jaundice diaphoresis pos dp pt no carotid bruits trace le edema bl, no c/c Laboratory Last Values WBC 10.4 K/mm3 (4.0-10.0) H 08/04/19 08:00 RBC 3.12 M/mm3 (4.00-5.60) L 08/04/19 08:00 Hgb 9.5 GM/dL (11.7-16.9) L 08/04/19 08:00 Hct 28.5 % (35.4-49) L 08/04/19 08:00 MCV 91.4 fl (80-96) 08/04/19 08:00 MCH 30.3 pg (25.7-33.7) 08/04/19 08:00 MCHC 33.1 g/dl (32.0-35.9) 08/04/19 08:00 RDW 15.2 % (11.9-15.9) 08/04/19 08:00 Plt Count 238 K/MM3 (134-434) 08/04/19 08:00 MPV 7.8 fl (7.5-11.1) 08/04/19 08:00 Absolute Neuts (auto) 9.3 K/mm3 (1.5-8.0) H 08/04/19 08:00 Neutrophils % 89.2 % (42.8-82.8) H 08/04/19 08:00 Lymphocytes % 4.1 % (8-40) L D 08/04/19 08:00 Monocytes % 6.6 % (3.8-10.2) 08/04/19 08:00 Eosinophils % 0.0 % (0-4.5) D 08/04/19 08:00 Basophils % 0.1 % (0-2.0) 08/04/19 08:00 Nucleated RBC % 0 % (0-0) 08/04/19 08:00 PT with INR 13.10 SEC (9.7-13.0) H 08/03/19 10:48 INR 1.11 (0.83-1.09) H 08/03/19 10:48 Anticoagulation Therapy No Result Required. 08/03/19 15:00 Puncture Site Right radial 08/03/19 15:00 ABG pH 7.29 (7.35-7.45) L 08/03/19 15:00 ABG pCO2 at Pt Temp 45.2 mmHg (35-45) H 08/03/19 15:00 ABG pO2 at Pt Temp 93.5 mmHg (80-100) 08/03/19 15:00 ABG HCO3 20.9 mmol/L (22-27) L 08/03/19 15:00 ABG O2 Sat (Measured) 95.6 % (95-98) 08/03/19 15:00 ABG O2 Content 12.4 % vol 08/03/19 15:00 ABG Base Excess -4.9 meq/l (-2-2) L 08/03/19 15:00 Juan Antonio Test Positive 08/03/19 15:00 O2 Delivery Device bipap 08/03/19 15:00 Oxygen Flow Rate 40 08/03/19 15:00 Vent Mode s/t 08/03/19 15:00 Vent Rate 12 08/03/19 15:00 Mechanical Rate No Result Required. 08/03/19 15:00 PEEP 0.0 cmH2O 08/03/19 15:00 Pressure Support Vent 14/6 08/03/19 15:00 Sodium 146 mmol/L (136-145) H 08/04/19 08:00 Potassium 4.2 mmol/L (3.5-5.1) 08/04/19 08:00 Chloride 113 mmol/L (98-107) H 08/04/19 08:00 Carbon Dioxide 25 mmol/L (21-32) 08/04/19 08:00 Anion Gap 7 MMOL/L (8-16) L 08/04/19 08:00 BUN 72.6 mg/dL (7-18) H 08/04/19 08:00 Creatinine 2.5 mg/dL (0.55-1.3) H 08/04/19 08:00 Est GFR (CKD-EPI)AfAm 27.86 08/04/19 08:00 Est GFR (CKD-EPI)NonAf 24.04 08/04/19 08:00 POC Glucometer 229 UNITS (80-120) 08/04/19 11:17 Random Glucose 198 mg/dL (74-106) H 08/04/19 08:00 Hemoglobin A1c % 8.1 % (4.2-6.3) H 08/04/19 08:00 Calcium 8.1 mg/dL (8.5-10.1) L 08/04/19 08:00 Phosphorus 5.7 mg/dL (2.5-4.9) H 08/04/19 08:00 Magnesium 2.4 mg/dL (1.8-2.4) 08/04/19 08:00 Total Bilirubin 0.3 mg/dL (0.2-1) 08/04/19 08:00 AST 19 U/L (15-37) 08/04/19 08:00 ALT 24 U/L (13-61) 08/04/19 08:00 Alkaline Phosphatase 66 U/L (45-117) 08/04/19 08:00 Creatine Kinase 283 U/L (26-308) 08/04/19 08:00 Creatine Kinase Index 1.4 % (0.0-5.0) 08/04/19 08:00 CK-MB (CK-2) 4.0 ng/mL (0.5-3.6) H 08/04/19 08:00 Troponin I 0.04 ng/ml (0.00-0.05) 08/04/19 08:00 B-Natriuretic Peptide 2898.4 pg/ml (5-450) H 08/03/19 10:48 Total Protein 6.4 g/dl (6.4-8.2) 08/04/19 08:00 Albumin 2.6 g/dl (3.4-5.0) L 08/04/19 08:00 TSH 0.56 uIU/ml (0.358-3.74) 08/04/19 08:00 Urine Color Yellow 08/03/19 11:20 Urine Appearance Clear 08/03/19 11:20 Urine pH 5.0 (5.0-8.0) 08/03/19 11:20 Ur Specific [place] 1.015 (1.010-1.035) 08/03/19 11:20 Urine Protein Negative (NEGATIVE) 08/03/19 11:20 Urine Glucose (UA) Negative (NEGATIVE) 08/03/19 11:20 Urine Ketones Negative (NEGATIVE) 08/03/19 11:20 Urine Blood Negative (NEGATIVE) 08/03/19 11:20 Urine Nitrite Negative (NEGATIVE) 08/03/19 11:20 Urine Bilirubin Negative (NEGATIVE) 08/03/19 11:20 Urine Urobilinogen 0.2 mg/dL (0.2-1.0) 08/03/19 11:20 Ur Leukocyte Esterase Negative (NEGATIVE) 08/03/19 11:20 ecg: sr, lvh with repol, no sig change prior echo 07/2019: mod lvh, nl lvef, rv tds, mod tr, rvsp >60, mild pr cxr: chf tele: sr a/p: 78 m hx dementia, hld, htn, dm, ckd, here sent [place] with sob. acute diastolic chf: -no signs acs -cont with iv lasix. daily chem7, wts htn: -cont coreg ckd: -cr near baseline, monitor with diuresis elevated trop: -borderline trop elevation with flat trend and nl ck index, similar to prior baseline values, not c/w acs
--- NOTE | 2019-08-04 15:16 | PN ---
Progress Note, Physician History of Present Illness: Pt seen and examined at bedside. He appears more comfortable. He feels breathing is improved. He is off of bipap. - Current Medication List Current Medications: Active Medications Carvedilol (Coreg -) 12.5 mg PO BID [facility] Chlorhexidine Gluconate (Hibiclens For Decolonization -) 1 applic TP HS [facility] Furosemide (Lasix Injection -) 80 mg IVPUSH BIDLASIX [facility] Last Admin: 08/04/19 14:19 Dose: 80 mg Heparin Sodium (Porcine) (Heparin -) 5,000 unit SQ TID [facility] Last Admin: 08/04/19 14:19 Dose: 5,000 unit Insulin Aspart (Novolog Vial Sliding Scale -) 1 vial SQ Q4HPO [facility]; Protocol Mupirocin (Bactroban Ointment (For Decolonization) -) 1 applic NS BID [facility] Stop: 08/08/19 21:59 - Objective Vital Signs: Vital Signs Temperature 97.4 F L 08/04/19 10:00 Pulse Rate 64 08/04/19 14:00 Respiratory Rate 16 08/04/19 14:00 Blood Pressure 138/70 08/04/19 14:00 O2 Sat by Pulse Oximetry (%) 97 08/04/19 09:00 Constitutional: Yes: Calm Eyes: Yes: Conjunctiva Clear HENT: Yes: Atraumatic Cardiovascular: Yes: S1, S2 Respiratory: Yes: On Nasal O2, Rhonchi Gastrointestinal: Yes: Soft Genitourinary: Yes: Riley Present Musculoskeletal: Yes: Muscle Weakness Edema: Yes Edema: LLE: Trace, RLE: Trace Neurological: Yes: Oriented Psychiatric: Yes: Oriented Labs: CBC, BMP 08/04/19 08:00 08/04/19 08:00 INR, PTT INR 1.11 (0.83-1.09) H 08/03/19 10:48 Problem List - Problems (1) CKD (chronic kidney disease) Code(s): N18.9 - CHRONIC KIDNEY DISEASE, UNSPECIFIED (2) Pulmonary edema Code(s): J81.1 - CHRONIC PULMONARY EDEMA Assessment/Plan Current Medications Generic Name Dose Route Start Last Admin Trade Name Freq PRN Reason Stop Dose Admin Carvedilol 12.5 mg 08/04/19 22:00 Coreg - PO BID [facility] Chlorhexidine Gluconate 1 applic 08/04/19 22:00 Hibiclens For Decolonization - TP HS [facility] Furosemide 80 mg 08/04/19 14:00 08/04/19 14:19 Lasix Injection - IVPUSH 80 mg BIDLASIX [facility] Administration Heparin Sodium (Porcine) 5,000 unit 08/04/19 14:00 08/04/19 14:19 Heparin - SQ 5,000 unit TID [facility] Administration Insulin Aspart 1 vial 08/04/19 14:00 Novolog Vial Sliding Scale - SQ Q4HPO [facility] Protocol Mupirocin 1 applic 08/04/19 22:00 Bactroban Ointment (For Decolonization) - NS 08/08/19 21:59 BID [facility] Impression 1. ISMA 2. CKD 3. pulm edema 4. nsaid use 5. htn 6. dementia 7. dm 8. bph Plan - cont lasix - monitor renal function - follow cxr - monitor pulse ox - maintain riley - nsaids stopped
--- NOTE | 2019-08-04 18:02 | PN ---
Progress Note, Physician - Current Medication List Current Medications: Active Medications Carvedilol (Coreg -) 12.5 mg PO BID [facility] Chlorhexidine Gluconate (Hibiclens For Decolonization -) 1 applic TP HS [facility] Furosemide (Lasix Injection -) 80 mg IVPUSH BIDLASIX [facility] Last Admin: 08/04/19 14:19 Dose: 80 mg Heparin Sodium (Porcine) (Heparin -) 5,000 unit SQ TID [facility] Last Admin: 08/04/19 14:19 Dose: 5,000 unit Insulin Aspart (Novolog Vial Sliding Scale -) 1 vial SQ Q4HPO [facility]; Protocol Last Admin: 08/04/19 17:03 Dose: 4 units Mupirocin (Bactroban Ointment (For Decolonization) -) 1 applic NS BID [facility] Stop: 08/08/19 21:59 - Objective Vital Signs: Vital Signs Temperature 98 F 08/04/19 16:00 Pulse Rate 65 08/04/19 17:52 Respiratory Rate 18 08/04/19 17:52 Blood Pressure 129/67 08/04/19 17:52 O2 Sat by Pulse Oximetry (%) 97 08/04/19 09:00 Constitutional: Yes: Calm HENT: Yes: Atraumatic Neck: Yes: Supple Cardiovascular: Yes: Regular Rate and Rhythm Respiratory: Yes: Rhonchi Gastrointestinal: Yes: Normal Bowel Sounds Extremities: Yes: WNL Edema: No Neurological: Yes: Alert, Oriented Labs: CBC, BMP 08/04/19 08:00 08/04/19 08:00 INR, PTT INR 1.11 (0.83-1.09) H 08/03/19 10:48 Problem List - Problems (1) CKD (chronic kidney disease) Assessment/Plan: fu labs renal consult Code(s): N18.9 - CHRONIC KIDNEY DISEASE, UNSPECIFIED (2) Pulmonary edema Assessment/Plan: iv lasix Code(s): J81.1 - CHRONIC PULMONARY EDEMA (3) HTN (hypertension) Assessment/Plan: on meds stable Code(s): I10 - ESSENTIAL (PRIMARY) HYPERTENSION Assessment/Plan cc time 30 min
[2019-08-04] MEDS ORDERED: CARVEDILOL 12.5 MG TABLET (FP) PO SCH (22:00)
[2019-08-04] MEDS ORDERED: MUPIROCIN 2% TOPICAL OINTMENT FOR DECOLONIZATION NS SCH (22:00)
[2019-08-04] MEDS ORDERED: CHLORHEXIDINE GLUCONATE 4% CLEANSER FOR DECOLONIZATION TP SCH (22:00)
[2019-08-05 06:44] LABS: BASO % 0.2 % (0-2.0); EOS % 0.3 % (0-4.5); HEMATOCRIT 28.3 % (35.4-49); HEMOGLOBIN 9.4 GM/dL (11.7-16.9); LYMPH % 12.8 % (8-40); MCH 30.4 pg (25.7-33.7); MCHC 33.2 g/dl (32.0-35.9); MEAN CELL VOLUME 91.5 fl (80-96); MEAN PLT VOLUME 7.6 fl (7.5-11.1); MONO % 9.4 % (3.8-10.2); NEUT % 77.3 % (42.8-82.8); PLATELET COUNT 262 K/MM3 (134-434); RBC 3.09 M/mm3 (4.00-5.60); RDW 15.3 % (11.9-15.9); WHITE BLOOD COUNT 8.8 K/mm3 (4.0-10.0)
[2019-08-05] MEDS: INSULIN SLIDING SCALE (NOVOLOG) 1 VIAL SQ SCH ×4 (06:55→21:39)
[2019-08-05] MEDS: HEPARIN NA (PORCINE) 5,000 UNITS/ML 1ML VIAL SQ SCH ×3 (06:55→21:23)
[2019-08-05] MEDS: FUROSEMIDE 40 MG/4 ML INJECTABLE VIAL IVPUSH SCH ×2 (06:55→13:43)
[2019-08-05 07:35] LABS: ALBUMIN 2.5 g/dl (3.4-5.0); BILIRUBIN,TOTAL 0.4 mg/dL (0.2-1); BLOOD UREA NITROGEN 81.3 mg/dL (7-18); CALCIUM 7.9 mg/dL (8.5-10.1); CREATININE 2.5 mg/dL (0.55-1.3); POTASSIUM 4.2 mmol/L (3.5-5.1); TOT PROT 6.2 g/dl (6.4-8.2)
--- NOTE | 2019-08-05 09:29 | PN ---
Progress Note, Physician Chief Complaint: weight down yesterday. None yet today He feels little "better" TELE: NSR - Current Medication List Current Medications: Active Medications Carvedilol (Coreg -) 12.5 mg PO BID [facility] Furosemide (Lasix Injection -) 80 mg IVPUSH BIDLASIX [facility] Heparin Sodium (Porcine) (Heparin -) 5,000 unit SQ TID [facility] Insulin Aspart (Novolog Vial Sliding Scale -) 1 vial SQ ACHS [facility]; Protocol - Objective Vital Signs: Vital Signs Temperature 98 F 08/05/19 08:44 Pulse Rate 70 08/05/19 08:44 Respiratory Rate 20 08/05/19 08:44 Blood Pressure 140/72 08/05/19 08:44 O2 Sat by Pulse Oximetry (%) 90 L 08/05/19 08:12 Constitutional: Yes: No Distress Cardiovascular: Yes: Regular Rate and Rhythm Respiratory: Yes: Other (decreased basilar breath sounds) Gastrointestinal: Yes: Soft Extremities: Yes: Other (SACRAL EDEMA) Edema: Yes Edema: LLE: 1+, RLE: 1+ Peripheral Pulses WNL: Yes ...Motor Strength: WNL Labs: CBC, BMP 08/05/19 06:00 08/05/19 06:00 INR, PTT INR 1.11 (0.83-1.09) H 08/03/19 10:48 - ....Imaging EKG: Image Reviewed Assessment/Plan ecg: sr, lvh with repol, no sig change prior echo 07/2019: mod lvh, nl lvef, rv tds, mod tr, rvsp >60, mild pr cxr: chf tele: sr a/p: 78 m hx dementia, hld, htn, dm, ckd, [place]. acute diastolic chf: -no signs acs -cont with iv lasix. daily chem7, wts -KATHERINE/ARB held due to CKD htn: -cont coreg ckd: -cr near baseline, monitor with diuresis, Remains stable thus far. elevated trop: -borderline trop elevation with flat trend and nl ck index, similar to prior baseline values, not c/w acs.
[2019-08-05] MEDS: CARVEDILOL 12.5 MG TABLET (FP) PO SCH ×2 (09:42→21:23)
--- NOTE | 2019-08-05 11:17 | PN ---
Progress Note, Physician - Current Medication List Current Medications: Active Medications Carvedilol (Coreg -) 12.5 mg PO BID [facility] Last Admin: 08/05/19 09:42 Dose: 12.5 mg Furosemide (Lasix Injection -) 80 mg IVPUSH BIDLASIX [facility] Heparin Sodium (Porcine) (Heparin -) 5,000 unit SQ TID [facility] Insulin Aspart (Novolog Vial Sliding Scale -) 1 vial SQ ACHS [facility]; Protocol - Objective Vital Signs: Vital Signs Temperature 98 F 08/05/19 08:44 Pulse Rate 70 08/05/19 08:44 Respiratory Rate 20 08/05/19 08:44 Blood Pressure 140/72 08/05/19 08:44 O2 Sat by Pulse Oximetry (%) 90 L 08/05/19 09:00 Constitutional: Yes: No Distress HENT: Yes: Atraumatic Neck: Yes: Supple Cardiovascular: Yes: Regular Rate and Rhythm Respiratory: Yes: Rhonchi Gastrointestinal: Yes: Normal Bowel Sounds Extremities: Yes: WNL Neurological: Yes: Alert Labs: CBC, BMP 08/05/19 06:00 08/05/19 06:00 INR, PTT INR 1.11 (0.83-1.09) H 08/03/19 10:48 Problem List - Problems (1) CKD (chronic kidney disease) Assessment/Plan: fu labs renal consult Code(s): N18.9 - CHRONIC KIDNEY DISEASE, UNSPECIFIED (2) Pulmonary edema Assessment/Plan: iv lasix improving Code(s): J81.1 - CHRONIC PULMONARY EDEMA (3) HTN (hypertension) Assessment/Plan: on meds stable Code(s): I10 - ESSENTIAL (PRIMARY) HYPERTENSION
[2019-08-05] MEDS ORDERED: INSULIN (NOVOLOG) ASPART 100 UNITS/ML 10ML VIAL ONE (12:04)
--- NOTE | 2019-08-05 13:32 | PN ---
Progress Note, Physician History of Present Illness: Pt seen and examined at bedside. He feels that his breathing is improved. - Current Medication List Current Medications: Active Medications Carvedilol (Coreg -) 12.5 mg PO BID [facility] Last Admin: 08/05/19 09:42 Dose: 12.5 mg Furosemide (Lasix Injection -) 80 mg IVPUSH BIDLASIX [facility] Heparin Sodium (Porcine) (Heparin -) 5,000 unit SQ TID [facility] Insulin Aspart (Novolog Vial Sliding Scale -) 1 vial SQ ACHS [facility]; Protocol Last Admin: 08/05/19 12:09 Dose: 2 units - Objective Vital Signs: Vital Signs Temperature 98 F 08/05/19 08:44 Pulse Rate 70 08/05/19 08:44 Respiratory Rate 20 08/05/19 08:44 Blood Pressure 140/72 08/05/19 08:44 O2 Sat by Pulse Oximetry (%) 90 L 08/05/19 09:00 Constitutional: Yes: Calm Eyes: Yes: Conjunctiva Clear HENT: Yes: Atraumatic Neck: Yes: Supple Cardiovascular: Yes: S1, S2 Respiratory: Yes: On Nasal O2, Rhonchi Gastrointestinal: Yes: Soft Genitourinary: Yes: [place] Present Musculoskeletal: Yes: Muscle Weakness Edema: Yes Edema: LLE: 1+, RLE: 1+ Neurological: Yes: Oriented Psychiatric: Yes: Oriented Labs: CBC, BMP 08/05/19 06:00 08/05/19 06:00 INR, PTT INR 1.11 (0.83-1.09) H 08/03/19 10:48 Problem List - Problems (1) CKD (chronic kidney disease) Code(s): N18.9 - CHRONIC KIDNEY DISEASE, UNSPECIFIED (2) Pulmonary edema Code(s): J81.1 - CHRONIC PULMONARY EDEMA Assessment/Plan Current Medications Generic Name Dose Route Start Last Admin Trade Name Freq PRN Reason Stop Dose Admin Carvedilol 12.5 mg 08/05/19 10:00 08/05/19 09:42 Coreg - PO 12.5 mg BID [facility] Administration Furosemide 80 mg 08/05/19 14:00 08/05/19 13:43 Lasix Injection - IVPUSH 80 mg BIDLASIX [facility] Administration Heparin Sodium (Porcine) 5,000 unit 08/05/19 14:00 08/05/19 13:44 Heparin - SQ 5,000 unit TID [facility] Administration Insulin Aspart 1 vial 08/05/19 11:00 08/05/19 12:09 Novolog Vial Sliding Scale - SQ 2 units ACHS [facility] Administration Protocol Impression 1. ISMA 2. CKD 3. pulm edema 4. nsaid use 5. htn 6. dementia 7. dm 8. bph Plan - cont with lasix - repeat labs in am - monitor renal function and lytes daily - monitor output - bipap as needed - nsaids stopped
[2019-08-06] MEDS: FUROSEMIDE 40 MG/4 ML INJECTABLE VIAL IVPUSH SCH ×2 (05:42→13:25)
[2019-08-06] MEDS: HEPARIN NA (PORCINE) 5,000 UNITS/ML 1ML VIAL SQ SCH ×3 (05:43→21:16)
[2019-08-06] MEDS: INSULIN SLIDING SCALE (NOVOLOG) 1 VIAL SQ SCH ×4 (06:23→21:16)
[2019-08-06] MEDS: CARVEDILOL 12.5 MG TABLET (FP) PO SCH ×2 (09:05→21:16)
--- NOTE | 2019-08-06 09:06 | PN ---
Progress Note, Physician Chief Complaint: sob History of Present Illness: sob better. not walking outside the room. no cp, palpit, leg swelling - Current Medication List Current Medications: Active Medications Carvedilol (Coreg -) 12.5 mg PO BID [facility] Last Admin: 08/06/19 09:05 Dose: 12.5 mg Furosemide (Lasix Injection -) 80 mg IVPUSH BIDLASIX [facility] Last Admin: 08/06/19 05:42 Dose: 80 mg Heparin Sodium (Porcine) (Heparin -) 5,000 unit SQ TID [facility] Last Admin: 08/06/19 05:43 Dose: 5,000 unit Insulin Aspart (Novolog Vial Sliding Scale -) 1 vial SQ ACHS [facility]; Protocol Last Admin: 08/06/19 06:23 Dose: Not Given - Objective Vital Signs: Vital Signs Temperature 98 F 08/06/19 05:49 Pulse Rate 70 08/06/19 05:49 Respiratory Rate 20 08/06/19 05:49 Blood Pressure 142/70 08/06/19 05:49 O2 Sat by Pulse Oximetry (%) 90 L 08/06/19 08:35 Constitutional: Yes: Well Nourished, No Distress, Calm Cardiovascular: Yes: Regular Rate and Rhythm, JVD (probably), S1, S2. No: Gallop, Murmur Respiratory: Yes: Regular, Rales (bases). No: Accessory Muscle Use Extremities: No: Cold Edema: No Neurological: Yes: Alert. No: Seizure Psychiatric: No: Agitated Labs: CBC, BMP 08/05/19 06:00 08/05/19 06:00 INR, PTT INR 1.11 (0.83-1.09) H 08/03/19 10:48 Assessment/Plan echo 07/2019: mod lvh, nl lvef, rv tds, mod tr, rvsp >60, mild pr cxr: chf tele: sr a/p: 78 m hx dementia, hld, htn, dm, ckd, here sent from [place] with sob. acute diastolic chf, severe pulm HTN (RV not well seen on echo): -no signs acs -BNP 2800 (from 400 in 11/30) -no weights trend -serial CXR with slight improvement in diffuse alveolar infiltrates, ? small L effusion -> 5L UOP yesterday recorded from [facility]. cont with iv lasix 80 bid. -KATHERINE/ARB held due to CKD -suspect hypertensive heart dz here--bp control as doing htn: -target < 130/80 -mostly at goals -cont coreg as doing ckd: -baseline creatinine 2.1 (11/30) -creat 2.5 here, stable with diuresis elevated trop: -borderline trop elevation with flat trend and nl ck index, similar to prior baseline values, not c/w acs.
--- NOTE | 2019-08-06 15:40 | PN ---
Progress Note, Physician History of Present Illness: Pt seen and examined at bedside. He is awake and more alert. He feels that his breathing is improved. - Current Medication List Current Medications: Active Medications Carvedilol (Coreg -) 12.5 mg PO BID [facility] Last Admin: 08/06/19 09:05 Dose: 12.5 mg Furosemide (Lasix Injection -) 80 mg IVPUSH BIDLASIX [facility] Last Admin: 08/06/19 13:25 Dose: 80 mg Heparin Sodium (Porcine) (Heparin -) 5,000 unit SQ TID [facility] Last Admin: 08/06/19 13:25 Dose: 5,000 unit Insulin Aspart (Novolog Vial Sliding Scale -) 1 vial SQ ACHS [facility]; Protocol Last Admin: 08/06/19 12:22 Dose: 2 units - Objective Vital Signs: Vital Signs Temperature 98 F 08/06/19 14:00 Pulse Rate 63 08/06/19 14:00 Respiratory Rate 18 08/06/19 14:00 Blood Pressure 162/78 08/06/19 14:00 O2 Sat by Pulse Oximetry (%) 95 08/06/19 09:00 Constitutional: Yes: Calm Eyes: Yes: Conjunctiva Clear HENT: Yes: Atraumatic Neck: Yes: Supple Cardiovascular: Yes: S1, S2 Respiratory: Yes: On Nasal O2 Gastrointestinal: Yes: Soft Genitourinary: Yes: Gilbert Present Musculoskeletal: Yes: WNL Edema: Yes Edema: LLE: Trace, RLE: Trace Neurological: Yes: Oriented Labs: CBC, BMP 08/05/19 06:00 08/05/19 06:00 INR, PTT INR 1.11 (0.83-1.09) H 08/03/19 10:48 Problem List - Problems (1) CKD (chronic kidney disease) Code(s): N18.9 - CHRONIC KIDNEY DISEASE, UNSPECIFIED (2) Pulmonary edema Code(s): J81.1 - CHRONIC PULMONARY EDEMA Assessment/Plan Current Medications Generic Name Dose Route Start Last Admin Trade Name Freq PRN Reason Stop Dose Admin Carvedilol 12.5 mg 08/05/19 10:00 08/06/19 09:05 Coreg - PO 12.5 mg BID [facility] Administration Furosemide 80 mg 08/05/19 14:00 08/06/19 13:25 Lasix Injection - IVPUSH 80 mg BIDLASIX [facility] Administration Heparin Sodium (Porcine) 5,000 unit 08/05/19 14:00 08/06/19 13:25 Heparin - SQ 5,000 unit TID [facility] Administration Insulin Aspart 1 vial 08/05/19 11:00 08/06/19 12:22 Novolog Vial Sliding Scale - SQ 2 units ACHS [facility] Administration Protocol Impression 1. ISMA 2. CKD 3. pulm edema 4. nsaid use 5. htn 6. dementia 7. dm 8. bph Plan - check bmp - change lasix to daily until labs reviewed - volume status improved - encourage PO intake - bipap as needed - nsaids stopped
--- NOTE | 2019-08-06 20:34 | PN ---
Progress Note (short form) - Note Progress Note: patient seen and examined in room chart reviewed patient states breathing improved ambulates in room denies CP / SOB Vital Signs Period Temp Pulse Resp BP Sys/Escoto Pulse Ox Last 24 Hr 97.7 F-99.1 F 63-75 18-20 142-163/70-84 90-96 neck _JVD heart S1/S2 lungs diminished / rales bilat abd soft ext no edema CBC, BMP 08/05/19 06:00 08/05/19 06:00 INR, PTT INR 1.11 (0.83-1.09) H 08/03/19 10:48 echo 07/2019: mod lvh, nl lvef, rv tds, mod tr, rvsp >60, mild pr cxr: chf tele: sr Microbiology 08/03/19 11:00 Blood - Peripheral Venous Blood Culture - Preliminary NO GROWTH OBTAINED AFTER 72 HOURS, INCUBATION TO CONTINUE FOR 2 DAYS. 08/03/19 10:48 Blood - Peripheral Venous Blood Culture - Preliminary NO GROWTH OBTAINED AFTER 72 HOURS, INCUBATION TO CONTINUE FOR 2 DAYS. 08/03/19 11:20 Urine - Urine - Catheterized Urine Culture - Final NO GROWTH OBTAINED Active Medications Carvedilol (Coreg -) 12.5 mg PO BID [facility] Last Admin: 08/06/19 09:05 Dose: 12.5 mg Furosemide (Lasix Injection -) 80 mg IVPUSH DAILY [facility] Heparin Sodium (Porcine) (Heparin -) 5,000 unit SQ TID [facility] Last Admin: 08/06/19 13:25 Dose: 5,000 unit Insulin Aspart (Novolog Vial Sliding Scale -) 1 vial SQ ACHS [facility]; Protocol Last Admin: 08/06/19 17:02 Dose: 6 units a/p: 78 m hx dementia, hld, htn, dm, ckd, here [place]. # Acute dHF / pHTN continue lasix / replace lytes as needed I & O trend renal function follow CXR # CKD basline Cr 2.1 tolerating current dose of lasix KATHERINE / ARB on hold renal follow up appreciated # HTN continue current meds Bp controlled
[2019-08-07] MEDS: INSULIN SLIDING SCALE (NOVOLOG) 1 VIAL SQ SCH ×4 (06:50→21:40)
[2019-08-07] MEDS: HEPARIN NA (PORCINE) 5,000 UNITS/ML 1ML VIAL SQ SCH ×3 (06:50→21:40)
[2019-08-07 07:13] LABS: ALBUMIN 2.8 g/dl (3.4-5.0); BILIRUBIN,TOTAL 0.4 mg/dL (0.2-1); BLOOD UREA NITROGEN 79.1 mg/dL (7-18); CALCIUM 8.3 mg/dL (8.5-10.1); CREATININE 2.4 mg/dL (0.55-1.3); TOT PROT 6.9 g/dl (6.4-8.2)
--- NOTE | 2019-08-07 09:51 | PN ---
Progress Note, Physician Chief Complaint: sob History of Present Illness: sob "a bit" better. not walking halls no leg swelling, cp, palpit - Current Medication List Current Medications: Active Medications Carvedilol (Coreg -) 12.5 mg PO BID [facility] Last Admin: 08/06/19 21:16 Dose: 12.5 mg Furosemide (Lasix Injection -) 80 mg IVPUSH DAILY [facility] Heparin Sodium (Porcine) (Heparin -) 5,000 unit SQ TID [facility] Last Admin: 08/07/19 06:50 Dose: 5,000 unit Insulin Aspart (Novolog Vial Sliding Scale -) 1 vial SQ ACHS [facility]; Protocol Last Admin: 08/07/19 06:50 Dose: 2 units - Objective Vital Signs: Vital Signs Temperature 97.8 F 08/07/19 06:00 Pulse Rate 76 08/07/19 06:00 Respiratory Rate 20 08/07/19 06:00 Blood Pressure 167/63 08/07/19 06:00 O2 Sat by Pulse Oximetry (%) 95 08/06/19 21:00 Constitutional: Yes: Well Nourished, No Distress, Calm Cardiovascular: Yes: Regular Rate and Rhythm, S1, S2. No: Gallop, Murmur Respiratory: Yes: Regular, CTA Bilaterally, Rales (bases). No: Accessory Muscle Use, Wheezes Extremities: No: Cold Edema: No Neurological: Yes: Alert, Oriented Psychiatric: No: Agitated Labs: CBC, BMP 08/05/19 06:00 08/07/19 06:34 INR, PTT INR 1.11 (0.83-1.09) H 08/03/19 10:48 Assessment/Plan echo 07/2019: mod lvh, nl lvef, rv tds, mod tr, rvsp >60, mild pr cxr: chf tele: sr a/p: 78 m hx dementia, hld, htn, dm, ckd, [place] with [place]. acute diastolic chf, severe pulm HTN (RV not well seen on echo): -no signs acs -BNP 2800 (from 400 in 11/30) -serial CXR with slight improvement in diffuse alveolar infiltrates, ? small L effusion -lasix changed from 80 iv bid to qd by dr almodovar starting today--suspect he will need more. ok for now. -wts inaccurate (229 to 209 today vs yesterday). 4500 cc UOP yesterday recorded from [facility]. bun/creat stable. followup today's CXR. -KATHERINE/ARB held due to CKD -suspect hypertensive heart dz here--bp control as doing htn: -target < 130/80 -above goals -incr carvedilol to 25 bid. add amlodipine next if not at targets ckd: -baseline creatinine 2.1 (11/30) -creat 2.5 here, stable with diuresis elevated trop: -borderline trop elevation with flat trend and nl ck index, similar to prior baseline values, not c/w acs.
[2019-08-07] MEDS ORDERED: FUROSEMIDE 40 MG/4 ML INJECTABLE VIAL IVPUSH SCH (10:00)
[2019-08-07] MEDS: CARVEDILOL 25 MG TABLET (FP) PO SCH ×2 (10:04→21:43)
--- NOTE | 2019-08-07 15:02 | PN ---
Progress Note, Physician History of Present Illness: Pt seen and examined at bedside. He is awake and alert. he feels that his breathing is improved. - Current Medication List Current Medications: Active Medications Carvedilol (Coreg -) 25 mg PO BID [facility] Last Admin: 08/07/19 10:04 Dose: 25 mg Furosemide (Lasix Injection -) 80 mg IVPUSH DAILY [facility] Last Admin: 08/07/19 10:04 Dose: 80 mg Heparin Sodium (Porcine) (Heparin -) 5,000 unit SQ TID [facility] Last Admin: 08/07/19 13:19 Dose: 5,000 unit Insulin Aspart (Novolog Vial Sliding Scale -) 1 vial SQ ACHS [facility]; Protocol Last Admin: 08/07/19 11:24 Dose: 2 units - Objective Vital Signs: Vital Signs Temperature 98.4 F 08/07/19 10:00 Pulse Rate 69 08/07/19 10:00 Respiratory Rate 20 08/07/19 10:00 Blood Pressure 165/72 08/07/19 10:00 O2 Sat by Pulse Oximetry (%) 96 08/07/19 09:00 Constitutional: Yes: Calm Eyes: Yes: Conjunctiva Clear HENT: Yes: Atraumatic Neck: Yes: Supple Cardiovascular: Yes: S1, S2 Respiratory: Yes: CTA Bilaterally Gastrointestinal: Yes: Soft Genitourinary: Yes: WNL Musculoskeletal: Yes: WNL Edema: Yes Edema: LLE: Trace, RLE: Trace Integumentary: Yes: Venous Stasis Changes Neurological: Yes: Oriented Psychiatric: Yes: Oriented Labs: CBC, BMP 08/05/19 06:00 08/07/19 06:34 INR, PTT INR 1.11 (0.83-1.09) H 08/03/19 10:48 Problem List - Problems (1) CKD (chronic kidney disease) Code(s): N18.9 - CHRONIC KIDNEY DISEASE, UNSPECIFIED (2) Pulmonary edema Code(s): J81.1 - CHRONIC PULMONARY EDEMA Assessment/Plan Current Medications Generic Name Dose Route Start Last Admin Trade Name Freq PRN Reason Stop Dose Admin Carvedilol 25 mg 08/07/19 10:00 08/07/19 10:04 Coreg - PO 25 mg BID [facility] Administration Furosemide 80 mg 08/07/19 10:00 08/07/19 10:04 Lasix Injection - IVPUSH 80 mg DAILY [facility] Administration Heparin Sodium (Porcine) 5,000 unit 08/05/19 14:00 08/07/19 13:19 Heparin - SQ 5,000 unit TID [facility] Administration Insulin Aspart 1 vial 08/05/19 11:00 08/07/19 11:24 Novolog Vial Sliding Scale - SQ 2 units ACHS [facility] Administration Protocol Impression 1. ISMA 2. CKD 3. pulm edema 4. nsaid use 5. htn 6. dementia 7. dm 8. bph Plan - cont lasix - labs reviewed - volume status is improving - can restart lisinopril - bipap as needed - nsaids stopped
[2019-08-07] MEDS: LISINOPRIL 10 MG TABLET (FP) PO SCH (15:20)
--- NOTE | 2019-08-07 22:26 | PN ---
Progress Note, Physician History of Present Illness: No new complaints - Current Medication List Current Medications: Active Medications Carvedilol (Coreg -) 25 mg PO BID [facility] Last Admin: 08/07/19 21:43 Dose: 25 mg Furosemide (Lasix Injection -) 80 mg IVPUSH BID@0600,1400 [facility] Heparin Sodium (Porcine) (Heparin -) 5,000 unit SQ TID [facility] Last Admin: 08/07/19 21:40 Dose: 5,000 unit Insulin Aspart (Novolog Vial Sliding Scale -) 1 vial SQ ACHS [facility]; Protocol Last Admin: 08/07/19 21:40 Dose: 2 units Lisinopril (Prinivil) 10 mg PO DAILY [facility] Last Admin: 08/07/19 15:20 Dose: 10 mg - Objective Vital Signs: Vital Signs Temperature 99.4 F 08/07/19 19:58 Pulse Rate 66 08/07/19 19:58 Respiratory Rate 18 08/07/19 19:58 Blood Pressure 141/69 08/07/19 19:58 O2 Sat by Pulse Oximetry (%) 95 08/07/19 20:01 Constitutional: Yes: Well Nourished HENT: Yes: WNL Neck: Yes: WNL, Supple Cardiovascular: Yes: WNL, Regular Rate and Rhythm Respiratory: Yes: Other (Bibasilar rales) Gastrointestinal: Yes: WNL, Normal Bowel Sounds, Soft Labs: CBC, BMP 08/05/19 06:00 08/07/19 06:34 INR, PTT INR 1.11 (0.83-1.09) H 08/03/19 10:48 Problem List - Problems (1) Acute on chronic diastolic (congestive) heart failure Assessment/Plan: Cont IV lasix wc was decreased today Monitor electrolytes Code(s): I50.33 - ACUTE ON CHRONIC DIASTOLIC (CONGESTIVE) HEART FAILURE (2) CKD (chronic kidney disease) Assessment/Plan: As per renal Code(s): N18.9 - CHRONIC KIDNEY DISEASE, UNSPECIFIED (3) HTN (hypertension) Code(s): I10 - ESSENTIAL (PRIMARY) HYPERTENSION
[2019-08-08] MEDS: HEPARIN NA (PORCINE) 5,000 UNITS/ML 1ML VIAL SQ SCH ×3 (05:41→21:40)
[2019-08-08] MEDS ORDERED: FUROSEMIDE 40 MG/4 ML INJECTABLE VIAL IVPUSH SCH (06:00)
[2019-08-08] MEDS: INSULIN SLIDING SCALE (NOVOLOG) 1 VIAL SQ SCH ×4 (06:50→21:42)
[2019-08-08 07:45] LABS: ALBUMIN 2.6 g/dl (3.4-5.0); BILIRUBIN,TOTAL 0.3 mg/dL (0.2-1); BLOOD UREA NITROGEN 64.8 mg/dL (7-18); CALCIUM 8.3 mg/dL (8.5-10.1); CREATININE 2.2 mg/dL (0.55-1.3); POTASSIUM 3.8 mmol/L (3.5-5.1); TOT PROT 6.5 g/dl (6.4-8.2)
--- NOTE | 2019-08-08 09:31 | PN ---
Progress Note, Physician Chief Complaint: sob History of Present Illness: denies sob. not ambulating halls. [facility] still in. no leg swelling, cp, palpit - Current Medication List Current Medications: Active Medications Carvedilol (Coreg -) 25 mg PO BID [facility] Last Admin: 08/07/19 21:43 Dose: 25 mg Furosemide (Lasix Injection -) 80 mg IVPUSH BID@0600,1400 [facility] Last Admin: 08/08/19 05:41 Dose: 80 mg Heparin Sodium (Porcine) (Heparin -) 5,000 unit SQ TID [facility] Last Admin: 08/08/19 05:41 Dose: 5,000 unit Insulin Aspart (Novolog Vial Sliding Scale -) 1 vial SQ ACHS [facility]; Protocol Last Admin: 08/08/19 06:50 Dose: Not Given Lisinopril (Prinivil) 10 mg PO DAILY [facility] Last Admin: 08/07/19 15:20 Dose: 10 mg - Objective Vital Signs: Vital Signs Temperature 99.2 F 08/08/19 05:40 Pulse Rate 74 08/08/19 05:40 Respiratory Rate 20 08/08/19 05:40 Blood Pressure 143/74 08/08/19 05:40 O2 Sat by Pulse Oximetry (%) 95 08/07/19 20:01 Constitutional: Yes: No Distress, Calm Eyes: No: Sclera Icterus HENT: No: Nasal Congestion Cardiovascular: Yes: Regular Rate and Rhythm, S1, S2, Other (PMI non diplaced). No: JVD, Gallop, Murmur Respiratory: Yes: CTA Bilaterally. No: Accessory Muscle Use, Rales, Wheezes Gastrointestinal: Yes: Normal Bowel Sounds, Soft. No: Tenderness Musculoskeletal: Yes: Other (No kyphosis) Extremities: No: Cyanosis Edema: No Integumentary: No: Jaundice Neurological: Yes: Alert, Oriented (x3) Psychiatric: No: Agitated Labs: CBC, BMP 08/05/19 06:00 08/08/19 06:40 INR, PTT INR 1.11 (0.83-1.09) H 08/03/19 10:48 Assessment/Plan echo 07/2019: mod lvh, nl lvef, rv tds, mod tr, rvsp >60, mild pr cxr: chf tele: sr a/p: 78 m hx dementia, hld, htn, dm, ckd, [place] with [place]. acute diastolic chf, severe pulm HTN (RV not well seen on echo): -no signs acs -BNP 2800 (from 400 in 11/30) -serial CXR with slight improvement in diffuse alveolar infiltrates, ? small L effusion -lasix changed from 80 iv bid to qd by dr almodovar starting 08/07--suspect he will need more. ok for now. -08/08: wt declined from yesterday, UOP 2900 yest. CXR yesterday much improved. d/c rosemary, encourage ambulation. change lasix to 100 po qd starting 08/09 -KATHERINE/ARB held due to CKD -suspect hypertensive heart dz here--bp control as doing htn: -target < 130/80 -incr'd carvedilol to 25 bid, bp much improved ckd: -baseline creatinine 2.1 (11/30) -creat 2.5 here, stable/improving with diuresis elevated trop: -borderline trop elevation with flat trend and nl ck index, similar to prior baseline values, not c/w acs d/c tele
[2019-08-08] MEDS: CARVEDILOL 25 MG TABLET (FP) PO SCH ×2 (10:41→21:40)
[2019-08-08] MEDS: LISINOPRIL 10 MG TABLET (FP) PO SCH (10:41)
--- NOTE | 2019-08-08 13:40 | PN ---
Progress Note, Physician Chief Complaint: Pt seen and examined at bedside. He is awake and alert. He denies shortness of breath. - Current Medication List Current Medications: Active Medications Carvedilol (Coreg -) 25 mg PO BID [facility] Last Admin: 08/08/19 10:41 Dose: 25 mg Furosemide (Lasix -) 100 mg PO DAILY [facility] Heparin Sodium (Porcine) (Heparin -) 5,000 unit SQ TID [facility] Last Admin: 08/08/19 05:41 Dose: 5,000 unit Insulin Aspart (Novolog Vial Sliding Scale -) 1 vial SQ ACHS [facility]; Protocol Last Admin: 08/08/19 06:50 Dose: Not Given Lisinopril (Prinivil) 10 mg PO DAILY [facility] Last Admin: 08/08/19 10:41 Dose: 10 mg - Objective Vital Signs: Vital Signs Temperature 99.2 F 08/08/19 05:40 Pulse Rate 74 08/08/19 05:40 Respiratory Rate 20 08/08/19 09:00 Blood Pressure 143/74 08/08/19 05:40 O2 Sat by Pulse Oximetry (%) 95 08/08/19 09:00 Constitutional: Yes: Calm Eyes: Yes: Conjunctiva Clear HENT: Yes: Atraumatic Neck: Yes: Supple Cardiovascular: Yes: S1, S2 Respiratory: Yes: CTA Bilaterally Gastrointestinal: Yes: Normal Bowel Sounds, Soft Genitourinary: Yes: Gilbert Present Edema: Yes Edema: LLE: Trace, RLE: Trace Neurological: Yes: Oriented Psychiatric: Yes: Oriented Labs: CBC, BMP 08/05/19 06:00 08/08/19 06:40 INR, PTT INR 1.11 (0.83-1.09) H 08/03/19 10:48 Problem List - Problems (1) CKD (chronic kidney disease) Code(s): N18.9 - CHRONIC KIDNEY DISEASE, UNSPECIFIED (2) Pulmonary edema Code(s): J81.1 - CHRONIC PULMONARY EDEMA Assessment/Plan Current Medications Generic Name Dose Route Start Last Admin Trade Name Freq PRN Reason Stop Dose Admin Carvedilol 25 mg 08/07/19 10:00 08/08/19 10:41 Coreg - PO 25 mg BID [facility] Administration Furosemide 100 mg 08/09/19 10:00 Lasix - PO DAILY [facility] Heparin Sodium (Porcine) 5,000 unit 08/05/19 14:00 08/08/19 05:41 Heparin - SQ 5,000 unit TID [facility] Administration Insulin Aspart 1 vial 08/05/19 11:00 08/08/19 06:50 Novolog Vial Sliding Scale - SQ Not Given ACHS [facility] Protocol Lisinopril 10 mg 08/07/19 15:15 08/08/19 10:41 Prinivil PO 10 mg DAILY [facility] Administration Impression 1. ISMA 2. CKD 3. pulm edema 4. nsaid use 5. htn 6. dementia 7. dm 8. bph Plan - cont lasix - cont robin, titrate dose as tolerated - voiding trial - volume status is improving - bipap as needed - nsaids stopped
--- NOTE | 2019-08-08 18:37 | PN ---
Progress Note, Physician History of Present Illness: doing wel - Current Medication List Current Medications: Active Medications Carvedilol (Coreg -) 25 mg PO BID [facility] Last Admin: 08/08/19 10:41 Dose: 25 mg Furosemide (Lasix -) 100 mg PO DAILY [facility] Heparin Sodium (Porcine) (Heparin -) 5,000 unit SQ TID [facility] Last Admin: 08/08/19 14:22 Dose: 5,000 unit Insulin Aspart (Novolog Vial Sliding Scale -) 1 vial SQ ACHS [facility]; Protocol Last Admin: 08/08/19 17:58 Dose: 6 units Lisinopril (Prinivil) 10 mg PO DAILY [facility] Last Admin: 08/08/19 10:41 Dose: 10 mg - Objective Vital Signs: Vital Signs Temperature 98.9 F 08/08/19 14:00 Pulse Rate 70 08/08/19 14:00 Respiratory Rate 20 08/08/19 14:00 Blood Pressure 120/64 08/08/19 14:00 O2 Sat by Pulse Oximetry (%) 95 08/08/19 09:00 Constitutional: Yes: No Distress HENT: Yes: Atraumatic Neck: Yes: Supple Cardiovascular: Yes: Regular Rate and Rhythm Respiratory: Yes: CTA Bilaterally Gastrointestinal: Yes: Normal Bowel Sounds Extremities: Yes: WNL Edema: No Peripheral Pulses WNL: Yes Neurological: Yes: Alert, Oriented Labs: CBC, BMP 08/05/19 06:00 08/08/19 06:40 INR, PTT INR 1.11 (0.83-1.09) H 08/03/19 10:48 Problem List - Problems (1) CKD (chronic kidney disease) Assessment/Plan: fu labs renal consult Code(s): N18.9 - CHRONIC KIDNEY DISEASE, UNSPECIFIED (2) Pulmonary edema Assessment/Plan: po lasix improving Code(s): J81.1 - CHRONIC PULMONARY EDEMA (3) HTN (hypertension) Assessment/Plan: on meds stable Code(s): I10 - ESSENTIAL (PRIMARY) HYPERTENSION Assessment[facility]Plan [email or web address]
[2019-08-09] MEDS: HEPARIN NA (PORCINE) 5,000 UNITS/ML 1ML VIAL SQ SCH ×3 (06:29→22:43)
[2019-08-09] MEDS: INSULIN SLIDING SCALE (NOVOLOG) 1 VIAL SQ SCH ×4 (06:29→22:39)
[2019-08-09 06:51] LABS: BLOOD UREA NITROGEN 73.3 mg/dL (7-18); CALCIUM 8.4 mg/dL (8.5-10.1); CREATININE 2.4 mg/dL (0.55-1.3); POTASSIUM 3.9 mmol/L (3.5-5.1)
[2019-08-09] MEDS: LISINOPRIL 10 MG TABLET (FP) PO SCH (09:46)
[2019-08-09] MEDS: FUROSEMIDE 40 MG TABLET (FP) PO SCH (09:46)
[2019-08-09] MEDS: CARVEDILOL 25 MG TABLET (FP) PO SCH ×2 (09:46→22:46)
--- NOTE | 2019-08-09 11:04 | PN ---
Progress Note (short form) - Note Progress Note: s: no chest pain, palps, dizziness, dyspnea, edema Current Medications Carvedilol (Coreg -) 25 mg PO BID [facility] Last Admin: 08/09/19 09:46 Dose: 25 mg Furosemide (Lasix -) 100 mg PO DAILY [facility] Last Admin: 08/09/19 09:46 Dose: 100 mg Heparin Sodium (Porcine) (Heparin -) 5,000 unit SQ TID [facility] Last Admin: 08/09/19 06:29 Dose: 5,000 unit Insulin Aspart (Novolog Vial Sliding Scale -) 1 vial SQ ACHS [facility]; Protocol Last Admin: 08/09/19 06:29 Dose: Not Given Lisinopril (Prinivil) 10 mg PO DAILY [facility] Last Admin: 08/09/19 09:46 Dose: 10 mg Vital Signs Period Temp Pulse Resp BP Sys/Escoto Pulse Ox Last 24 Hr 97.9 F-98.9 F 64-70 20-20 120-140/58-72 96 Constitutional: Yes: No Distress, Calm Eyes: No: Sclera Icterus HENT: No: Nasal Congestion Cardiovascular: Yes: Regular Rate and Rhythm, S1, S2, Other (PMI non diplaced). No: JVD, Gallop, Murmur Respiratory: Yes: CTA Bilaterally. No: Accessory Muscle Use, Rales, Wheezes Gastrointestinal: Yes: Normal Bowel Sounds, Soft. No: Tenderness Musculoskeletal: Yes: Other (No kyphosis) Extremities: No: Cyanosis Edema: No Integumentary: No: Jaundice Neurological: Yes: Alert, Oriented (x3) Psychiatric: No: Agitated Assessment/Plan echo 07/2019: mod lvh, nl lvef, rv tds, mod tr, rvsp >60, mild pr cxr: chf tele: sr a/p: 78 m hx dementia, hld, htn, dm, ckd, here [place]. acute diastolic chf, severe pulm HTN (RV not well seen on echo): -no signs acs -BNP 2800 (from 400 in 11/30) - [facility] *LIVE* Progress Note (SOAP) Patient Name: CLEMENTE CANDELARIO Date of : 1940 Patient Status: Inpatient Attending Provider: Juan J Silver Date: 08/08/19 09:26 Initialization Date: 08/08/19 09:26 Progress Note, Physician Chief Complaint: sob History of Present Illness: denies sob. not ambulating halls. [facility] still in. no leg swelling, cp, palpit - Current Medication List Current Medications: Active Medications Carvedilol (Coreg -) 25 mg PO BID [facility] Last Admin: 08/07/19 21:43 Dose: 25 mg Furosemide (Lasix Injection -) 80 mg IVPUSH BID@0600,1400 [facility] Last Admin: 08/08/19 05:41 Dose: 80 mg Heparin Sodium (Porcine) (Heparin -) 5,000 unit SQ TID [facility] Last Admin: 08/08/19 05:41 Dose: 5,000 unit Insulin Aspart (Novolog Vial Sliding Scale -) 1 vial SQ ACHS [facility]; Protocol Last Admin: 08/08/19 06:50 Dose: Not Given Lisinopril (Prinivil) 10 mg PO DAILY [facility] Last Admin: 08/07/19 15:20 Dose: 10 mg - Objective Vital Signs: Vital Signs Temperature 99.2 F 08/08/19 05:40 Pulse Rate 74 08/08/19 05:40 Respiratory Rate 20 08/08/19 05:40 Blood Pressure 143/74 08/08/19 05:40 O2 Sat by Pulse Oximetry (%) 95 08/07/19 20:01 Constitutional: Yes: No Distress, Calm Eyes: No: Sclera Icterus HENT: No: Nasal Congestion Cardiovascular: Yes: Regular Rate and Rhythm, S1, S2, Other (PMI non diplaced). No: JVD, Gallop, Murmur Respiratory: Yes: CTA Bilaterally. No: Accessory Muscle Use, Rales, Wheezes Gastrointestinal: Yes: Normal Bowel Sounds, Soft. No: Tenderness Musculoskeletal: Yes: Other (No kyphosis) Extremities: No: Cyanosis Edema: No Integumentary: No: Jaundice Neurological: Yes: Alert, Oriented (x3) Psychiatric: No: Agitated Labs: CBC, BMP 08/05/19 06:00 08/08/19 06:40 INR, PTT INR 1.11 (0.83-1.09) H 08/03/19 10:48 Assessment/Plan echo 07/2019: mod lvh, nl lvef, rv tds, mod tr, rvsp >60, mild pr cxr: chf a/p: 78 m hx dementia, hld, htn, dm, ckd, here sent from [place] with sob. acute diastolic chf, severe pulm HTN (RV not well seen on echo): - cont lasix 100 mg PO daily -KATHERINE/ARB held due to CKD -suspect hypertensive heart dz here--bp control as doing htn: -target < 130/80 -incr'd carvedilol to 25 bid, bp much improved ckd: -baseline creatinine 2.1 (11/30) -creat 2.5 here, stable/improving with diuresis elevated trop: -borderline trop elevation with flat trend and nl ck index, similar to prior baseline values, not c/w acs
[2019-08-09] MEDS ORDERED: INSULIN (NOVOLOG) ASPART 100 UNITS/ML 10ML VIAL ONE (12:01)
--- NOTE | 2019-08-09 16:10 | PN ---
Progress Note, Physician History of Present Illness: Pt seen and examined at bedside. He is awake and alert. He feels that his breathing is improved. - Current Medication List Current Medications: Active Medications Carvedilol (Coreg -) 25 mg PO BID [facility] Last Admin: 08/09/19 09:46 Dose: 25 mg Furosemide (Lasix -) 100 mg PO DAILY [facility] Last Admin: 08/09/19 09:46 Dose: 100 mg Heparin Sodium (Porcine) (Heparin -) 5,000 unit SQ TID [facility] Last Admin: 08/09/19 14:15 Dose: 5,000 unit Insulin Aspart (Novolog Vial Sliding Scale -) 1 vial SQ ACHS [facility]; Protocol Last Admin: 08/09/19 12:03 Dose: 2 units Lisinopril (Prinivil) 10 mg PO DAILY [facility] Last Admin: 08/09/19 09:46 Dose: 10 mg - Objective Vital Signs: Vital Signs Temperature 98.3 F 08/09/19 13:17 Pulse Rate 64 08/09/19 13:17 Respiratory Rate 24 H 08/09/19 13:17 Blood Pressure 114/62 08/09/19 13:17 O2 Sat by Pulse Oximetry (%) 97 08/09/19 13:17 Constitutional: Yes: Calm Eyes: Yes: Conjunctiva Clear HENT: Yes: Atraumatic Neck: Yes: Supple Cardiovascular: Yes: S1, S2 Respiratory: Yes: CTA Bilaterally Gastrointestinal: Yes: Soft Genitourinary: Yes: WNL Musculoskeletal: Yes: WNL Edema: Yes Edema: LLE: Trace, RLE: Trace Neurological: Yes: Oriented Psychiatric: Yes: Oriented Labs: CBC, BMP 08/05/19 06:00 08/09/19 06:05 INR, PTT INR 1.11 (0.83-1.09) H 08/03/19 10:48 Problem List - Problems (1) CKD (chronic kidney disease) Code(s): N18.9 - CHRONIC KIDNEY DISEASE, UNSPECIFIED (2) Pulmonary edema Code(s): J81.1 - CHRONIC PULMONARY EDEMA Assessment/Plan Current Medications Generic Name Dose Route Start Last Admin Trade Name Freq PRN Reason Stop Dose Admin Carvedilol 25 mg 08/07/19 10:00 08/09/19 09:46 Coreg - PO 25 mg BID [facility] Administration Furosemide 100 mg 08/09/19 10:00 08/09/19 09:46 Lasix - PO 100 mg DAILY [facility] Administration Heparin Sodium (Porcine) 5,000 unit 08/05/19 14:00 08/09/19 14:15 Heparin - SQ 5,000 unit TID [facility] Administration Insulin Aspart 1 vial 08/05/19 11:00 08/09/19 12:03 Novolog Vial Sliding Scale - SQ 2 units ACHS [facility] Administration Protocol Lisinopril 10 mg 08/07/19 15:15 08/09/19 09:46 Prinivil PO 10 mg DAILY [facility] Administration Impression 1. ISMA 2. CKD 3. pulm edema 4. nsaid use 5. htn 6. dementia 7. dm 8. bph Plan - cont lasix - cont robin - monitor renal function - volume status improving - cardio input appreciated - pt voiding - nsaids stopped
--- NOTE | 2019-08-09 17:41 | PN ---
Progress Note, Physician - Current Medication List Current Medications: Active Medications Carvedilol (Coreg -) 25 mg PO BID [facility] Last Admin: 08/09/19 09:46 Dose: 25 mg Furosemide (Lasix -) 100 mg PO DAILY [facility] Last Admin: 08/09/19 09:46 Dose: 100 mg Heparin Sodium (Porcine) (Heparin -) 5,000 unit SQ TID [facility] Last Admin: 08/09/19 14:15 Dose: 5,000 unit Insulin Aspart (Novolog Vial Sliding Scale -) 1 vial SQ ACHS [facility]; Protocol Last Admin: 08/09/19 17:16 Dose: 4 units Lisinopril (Prinivil) 10 mg PO DAILY [facility] Last Admin: 08/09/19 09:46 Dose: 10 mg - Objective Vital Signs: Vital Signs Temperature 98.3 F 08/09/19 13:17 Pulse Rate 64 08/09/19 13:17 Respiratory Rate 24 H 08/09/19 13:17 Blood Pressure 114/62 08/09/19 13:17 O2 Sat by Pulse Oximetry (%) 97 08/09/19 13:17 Constitutional: Yes: No Distress HENT: Yes: Atraumatic Neck: Yes: Supple Cardiovascular: Yes: Regular Rate and Rhythm Respiratory: Yes: CTA Bilaterally Gastrointestinal: Yes: Normal Bowel Sounds Extremities: Yes: WNL Edema: LLE: Trace, RLE: Trace Neurological: Yes: Alert, Oriented Labs: CBC, BMP 08/05/19 06:00 08/09/19 06:05 INR, PTT INR 1.11 (0.83-1.09) H 08/03/19 10:48 Problem List - Problems (1) CKD (chronic kidney disease) Assessment/Plan: fu labs renal consult Code(s): N18.9 - CHRONIC KIDNEY DISEASE, UNSPECIFIED (2) Pulmonary edema Assessment/Plan: po lasix improving Code(s): J81.1 - CHRONIC PULMONARY EDEMA (3) HTN (hypertension) Assessment/Plan: on meds stable Code(s): I10 - ESSENTIAL (PRIMARY) HYPERTENSION
--- NOTE | 2019-08-09 17:44 | DS ---
Physical Examination Vital Signs: Vital Signs Temperature 98.3 F 08/09/19 13:17 Pulse Rate 64 08/09/19 13:17 Respiratory Rate 24 H 08/09/19 13:17 Blood Pressure 114/62 08/09/19 13:17 O2 Sat by Pulse Oximetry (%) 97 08/09/19 13:17 Labs: CBC, BMP 08/05/19 06:00 08/09/19 06:05 Discharge Summary Problems reviewed: Yes Reason For Visit: ACUTE PULMONARY EDEMA Current Active Problems Acute on chronic diastolic (congestive) heart failure (Acute) CKD (chronic kidney disease) (Acute) HTN (hypertension) (Acute) Pulmonary edema (Acute) Condition: Guarded - Instructions - Home Medications Comprehensive Discharge Medication List: Ambulatory Orders Aspirin 81 mg PO DAILY 11/23/18 Atorvastatin Calcium 80 mg PO DAILY 11/23/18 Finasteride [Proscar] 5 mg PO DAILY 11/23/18 Latanoprost/Pf [Latanoprost 0.005% Eye Drop] 7.5 ml OP HS 11/23/18 Tamsulosin HCl [Flomax] 0.4 mg PO DAILY 11/23/18 Albuterol Sulfate Inhaler - [Ventolin Hfa Inhaler -] 1 puff IH BID 08/03/19 Ammonium Lactate Cream [Lac-Hydrin 12% *Cream*] 1 applic TP BID 08/03/19 Insulin (Levemir) [Levemir Vial] 36 unit SQ DAILY 08/03/19 Insulin Aspart [Novolog] See Protocol SQ BID 08/03/19 Sennosides [Senna] 2 tab PO HS 08/03/19 Carvedilol [Coreg -] 25 mg PO BID #60 tablet 08/08/19 Furosemide [Lasix -] 100 mg PO DAILY #20 tablet 08/08/19 Lisinopril [Prinivil] 10 mg PO DAILY #30 tablet 08/08/19
[2019-08-10] MEDS: HEPARIN NA (PORCINE) 5,000 UNITS/ML 1ML VIAL SQ SCH ×2 (06:49→14:27)
[2019-08-10] MEDS: INSULIN SLIDING SCALE (NOVOLOG) 1 VIAL SQ SCH ×2 (06:51→11:13)
[2019-08-10] MEDS: FUROSEMIDE 40 MG TABLET (FP) PO SCH ×2 (10:08→11:15)
[2019-08-10] MEDS: LISINOPRIL 10 MG TABLET (FP) PO SCH (10:08)
[2019-08-10] MEDS: CARVEDILOL 25 MG TABLET (FP) PO SCH ×2 (10:08→11:15)
[2019-08-10 11:11] VITALS: BP 103/58
[2019-08-10] MEDS ORDERED: LISINOPRIL 10 MG TABLET (FP) PO SCH (11:20)
--- NOTE | 2019-08-10 11:23 | PN ---
Progress Note (short form) - Note Progress Note: s: no chest pain, palps, dizziness, dyspnea, edema Current Medications Carvedilol (Coreg -) 25 mg PO BID [facility] Furosemide (Lasix -) 100 mg PO DAILY [facility] Heparin Sodium (Porcine) (Heparin -) 5,000 unit SQ TID [facility] Last Admin: 08/10/19 06:49 Dose: 5,000 unit Insulin Aspart (Novolog Vial Sliding Scale -) 1 vial SQ ACHS [facility]; Protocol Last Admin: 08/10/19 11:13 Dose: Not Given Lisinopril (Prinivil) 10 mg PO DAILY [facility] Vital Signs Period Temp Pulse Resp BP Sys/[place] Pulse Ox Last 24 Hr 97.7 F-99.2 F 62-98 18-24 97-136/30-71 97-97 Constitutional: Yes: No Distress, Calm Eyes: No: Sclera Icterus HENT: No: Nasal Congestion Cardiovascular: Yes: Regular Rate and Rhythm, S1, S2, Other (PMI non diplaced). No: JVD, Gallop, Murmur Respiratory: Yes: CTA Bilaterally. No: Accessory Muscle Use, Rales, Wheezes Gastrointestinal: Yes: Normal Bowel Sounds, Soft. No: Tenderness Musculoskeletal: Yes: Other (No kyphosis) Extremities: No: Cyanosis Edema: No Integumentary: No: Jaundice Neurological: Yes: Alert, Oriented (x3) Psychiatric: No: Agitated Assessment/Plan echo 07/2019: mod lvh, nl lvef, rv tds, mod tr, rvsp >60, mild pr cxr: chf a/p: 78 m hx dementia, hld, htn, dm, ckd, here sent from [place] with sob. acute diastolic chf, severe pulm HTN (RV not well seen on echo): - cont lasix 100 mg PO daily -KATHERINE/ARB held due to CKD - now restarted -suspect hypertensive heart dz here--bp control as doing htn: -target < 130/80 - low BPs this AM, cont monitoring ckd: -baseline creatinine 2.1 (11/30) -creat 2.5 here, stable/improving with diuresis elevated trop: -borderline trop elevation with flat trend and nl ck index, similar to prior baseline values, not c/w acs
--- NOTE | 2019-08-10 12:02 | PN ---
Progress Note, Physician History of Present Illness: Pt seen and examined at bedside. He is awake and alert. He denies shortness of breath. - Current Medication List Current Medications: Active Medications Carvedilol (Coreg -) 25 mg PO BID [facility] Furosemide (Lasix -) 100 mg PO DAILY [facility] Heparin Sodium (Porcine) (Heparin -) 5,000 unit SQ TID [facility] Last Admin: 08/10/19 06:49 Dose: 5,000 unit Insulin Aspart (Novolog Vial Sliding Scale -) 1 vial SQ ACHS [facility]; Protocol Last Admin: 08/10/19 11:13 Dose: Not Given Lisinopril (Prinivil) 10 mg PO DAILY [facility] - Objective Vital Signs: Vital Signs Temperature 98.7 F 08/10/19 09:49 Pulse Rate 71 08/10/19 11:05 Respiratory Rate 20 08/10/19 11:05 Blood Pressure 103/58 L 08/10/19 11:05 O2 Sat by Pulse Oximetry (%) 97 08/09/19 21:00 Constitutional: Yes: Calm Eyes: Yes: Conjunctiva Clear HENT: Yes: Atraumatic Neck: Yes: Supple Cardiovascular: Yes: S1, S2 Respiratory: Yes: CTA Bilaterally Gastrointestinal: Yes: Normal Bowel Sounds, Soft Genitourinary: Yes: WNL Musculoskeletal: Yes: WNL Edema: Yes Edema: LLE: Trace, RLE: Trace Neurological: Yes: Oriented Psychiatric: Yes: Oriented Labs: CBC, BMP 08/05/19 06:00 08/09/19 06:05 INR, PTT INR 1.11 (0.83-1.09) H 08/03/19 10:48 Problem List - Problems (1) CKD (chronic kidney disease) Code(s): N18.9 - CHRONIC KIDNEY DISEASE, UNSPECIFIED (2) Pulmonary edema Code(s): J81.1 - CHRONIC PULMONARY EDEMA Assessment/Plan Current Medications Generic Name Dose Route Start Last Admin Trade Name Freq PRN Reason Stop Dose Admin Carvedilol 25 mg 08/10/19 22:00 Coreg - PO BID [facility] Furosemide 100 mg 08/11/19 10:00 Lasix - PO DAILY [facility] Heparin Sodium (Porcine) 5,000 unit 08/05/19 14:00 08/10/19 06:49 Heparin - SQ 5,000 unit TID [facility] Administration Insulin Aspart 1 vial 08/05/19 11:00 08/10/19 11:13 Novolog Vial Sliding Scale - SQ Not Given ACHS [facility] Protocol Lisinopril 10 mg 08/10/19 11:20 Prinivil PO DAILY [facility] Impression 1. ISMA 2. CKD 3. pulm edema 4. nsaid use 5. htn 6. dementia 7. dm 8. bph Plan - no new labs - can see pt in office - pt tolerating robin - avoid nsaids - pt voiding
--- NOTE | 2019-08-10 14:40 | DS ---
Physical Examination Vital Signs: Vital Signs Temperature 98.7 F 08/10/19 09:49 Pulse Rate 71 08/10/19 11:05 Respiratory Rate 20 08/10/19 11:05 Blood Pressure 103/58 L 08/10/19 11:05 O2 Sat by Pulse Oximetry (%) 97 08/09/19 21:00 Constitutional: Yes: No Distress HENT: Yes: Atraumatic Neck: Yes: Supple Cardiovascular: Yes: Regular Rate and Rhythm Respiratory: Yes: CTA Bilaterally Gastrointestinal: Yes: Normal Bowel Sounds Extremities: Yes: WNL Edema: No Peripheral Pulses WNL: Yes Neurological: Yes: Alert, Oriented Labs: CBC, BMP 08/05/19 06:00 08/09/19 06:05 Discharge Summary Problems reviewed: Yes Reason For Visit: ACUTE PULMONARY EDEMA Current Active Problems Acute on chronic diastolic (congestive) heart failure (Acute) CKD (chronic kidney disease) (Acute) HTN (hypertension) (Acute) Pulmonary edema (Acute) Condition: Guarded - Instructions Referrals: Lolita Schwartz MD [Staff Physician] - Prashanth Freeman MD [Staff Physician] - - Home Medications Comprehensive Discharge Medication List: Ambulatory Orders Aspirin 81 mg PO DAILY 11/23/18 Atorvastatin Calcium 80 mg PO DAILY 11/23/18 Finasteride [Proscar] 5 mg PO DAILY 11/23/18 Latanoprost/Pf [Latanoprost 0.005% Eye Drop] 7.5 ml OP HS 11/23/18 Tamsulosin HCl [Flomax] 0.4 mg PO DAILY 11/23/18 Albuterol Sulfate Inhaler - [Ventolin Hfa Inhaler -] 1 puff IH BID 08/03/19 Ammonium Lactate Cream [Lac-Hydrin 12% *Cream*] 1 applic TP BID 08/03/19 Insulin (Levemir) [Levemir Vial] 36 unit SQ DAILY 08/03/19 Insulin Aspart [Novolog] See Protocol SQ BID 08/03/19 Sennosides [Senna] 2 tab PO HS 08/03/19 Carvedilol [Coreg -] 25 mg PO BID #60 tablet 08/08/19 Furosemide [Lasix -] 100 mg PO DAILY #20 tablet 08/08/19 Lisinopril [Prinivil] 10 mg PO DAILY #30 tablet 08/08/19 dc home fu doctors/pmds 2-3 days
[2019-08-10 15:10] VITALS: PULSE 70; TEMP 98.4
[2019-08-10] MEDS ORDERED: CARVEDILOL 25 MG TABLET (FP) PO SCH (22:00)
[2019-08-11] MEDS ORDERED: FUROSEMIDE 40 MG TABLET (FP) PO SCH (10:00)
== END 2019-08-10 17:25 | disposition home or self-care (01) | DRG 291 ==
LOC: JER 09:56 → JERBED 14:00 → JICU 14:23 → J4W 08-04 22:27 → J5S 08-09 13:02
PROVIDERS: ADMIT Internal Medicine; ATTEND Internal Medicine
DX: I13.0 Hypertensive heart and chronic kidney disease with heart failure and stage 1 through stage 4 chronic kidney disease, or unspecified chronic kidney disease (principal); I50.33 Acute on chronic diastolic (congestive) heart failure; J96.01 Acute respiratory failure with hypoxia; N17.9 Acute kidney failure, unspecified; E11.22 Type 2 diabetes mellitus with diabetic chronic kidney disease; N18.9 Chronic kidney disease, unspecified; Z79.4 Long term (current) use of insulin; E66.9 Obesity, unspecified; Z68.29 Body mass index [BMI] 29.0-29.9, adult; E78.5 Hyperlipidemia, unspecified; N40.0 Benign prostatic hyperplasia without lower urinary tract symptoms; F01.50 Vascular dementia, unspecified severity, without behavioral disturbance, psychotic disturbance, mood disturbance, and anxiety; D64.9 Anemia, unspecified; Z86.73 Personal history of transient ischemic attack (TIA), and cerebral infarction without residual deficits; I27.20 Pulmonary hypertension, unspecified
CPT/HCPCS: 36415; 36600; 71045-TC-FY; 80048; 80053; 81003; 82550; 82553; 82803; 82962; 83036; 83735; 83880; 84100; 84443; 84484; 85025; 85610; 87040; 87086; 93005; 93010; 93306-TC; 94660; 97116-GP; 97161-GP; 99285-25; J1644

== ENCOUNTER 2019-08-11 10:10 | Inpatient (IN) | payer OTHER ==
[2019-08-11] MEDS ORDERED: ONDANSETRON 4 MG/2 ML VIAL IVPUSH ONE (10:48)
[2019-08-11] MEDS ORDERED: SODIUM CHLORIDE 1,000 ML IV STA (10:48)
--- NOTE | 2019-08-11 10:48 | PDOC ---
History of Present Illness - General Chief Complaint: Weakness Stated Complaint: Weakness Time Seen by Provider: 08/11/19 10:42 - History of Present Illness Initial Comments: 08/11/19 10:48 Mr. Osman is a 78 yo male w/ pmh of HTN, HLD, vascular dementia, baseline L sided weakness (able to ambulate w/ walker), CKD, DM, BPH, diastolic CHF, and pulmonary hypertension who presents for evaluation of 1 day history of "feeling low" which he terms as weakness. Patient reports symptoms started this morning and have now abated. Currently has no complaints although vomit and dry heaving noted upon clothes at arrival. The patient denies chest pain, shortness of breath, headache and dizziness. Denies fever, chills, diarrhea and constipation. Denies dysuria, frequency, urgency and hematuria. Past History - Past Medical History Allergies/Adverse Reactions: Allergies Allergy/AdvReac Type Severity Reaction Status Date / Time No Known Allergies Allergy Verified 08/11/19 10:47 Home Medications: Ambulatory Orders Aspirin 81 mg PO DAILY 11/23/18 Atorvastatin Calcium 80 mg PO DAILY 11/23/18 Finasteride [Proscar] 5 mg PO DAILY 11/23/18 Latanoprost/Pf [Latanoprost 0.005% Eye Drop] 7.5 ml OP HS 11/23/18 Tamsulosin HCl [Flomax] 0.4 mg PO DAILY 11/23/18 Albuterol Sulfate Inhaler - [Ventolin Hfa Inhaler -] 1 puff IH BID 08/03/19 Ammonium Lactate Cream [Lac-Hydrin 12% *Cream*] 1 applic TP BID 08/03/19 Insulin (Levemir) [Levemir Vial] 36 unit SQ DAILY 08/03/19 Insulin Aspart [Novolog] See Protocol SQ BID 08/03/19 Sennosides [Senna] 2 tab PO HS 08/03/19 Carvedilol [Coreg -] 25 mg PO BID #60 tablet 08/08/19 Furosemide [Lasix -] 100 mg PO DAILY #20 tablet 08/08/19 Lisinopril [Prinivil] 10 mg PO DAILY #30 tablet 08/08/19 Anemia: No Asthma: No Cancer: Yes (prostate hypertrophy) Cardiac Disorders: No CVA: Yes (CVA L hemiparesis) COPD: No CHF: No Dementia: Yes Diabetes: Yes GI Disorders: No Disorders: No HTN: Yes Hypercholesterolemia: Yes Liver Disease: No Seizures: No Thyroid Disease: No - Surgical History Abdominal Surgery: No Appendectomy: No Cardiac Surgery: No Cholecystectomy: No Lung Surgery: No Neurologic Surgery: No Orthopedic Surgery: No - Psycho Social/Smoking Cessation Hx Smoking History: Unknown if ever smoked Have you smoked in the past 12 months: No Hx Alcohol Use: No Drug/Substance Use Hx: No Substance Use Type: None Hx Substance Use Treatment: No Review of Systems - Review of Systems Comments:: 08/11/19 11:16 GENERAL/CONSTITUTIONAL: +Prior weak feeling as described. No fever or chills. HEAD, EYES, EARS, NOSE AND THROAT: No change in vision. No ear pain or discharge. No sore throat. CARDIOVASCULAR: No chest pain or shortness of breath RESPIRATORY: No cough, wheezing, or hemoptysis. GASTROINTESTINAL: No diarrhea or constipation. GENITOURINARY: No dysuria, frequency, or change in urination. MUSCULOSKELETAL: No joint or muscle swelling or pain. No neck or back pain. SKIN: No rash NEUROLOGIC: No headache, vertigo, loss of consciousness, or change in strength/ sensation. ENDOCRINE: No increased thirst. No abnormal weight change HEMATOLOGIC/LYMPHATIC: No anemia, easy bleeding, or history of blood clots. ALLERGIC/IMMUNOLOGIC: No hives or skin allergy. *Physical Exam - Physical Exam Comments: 08/11/19 11:16 GENERAL: Awake, alert, and oriented to baseline, in no acute distress HEAD: No signs of trauma, normocephalic, atraumatic EYES: PERRLA, EOMI, sclera anicteric, conjunctiva clear ENT: Auricles normal inspection, hearing grossly normal, nares patent, oropharynx clear without exudates. Moist mucosa NECK: Normal ROM, supple, no lymphadenopathy, JVD, or masses LUNGS: No distress, speaks full sentences, clear to auscultation bilaterally HEART: Regular rate and rhythm, normal S1 and S2, no murmurs, rubs or gallops, peripheral pulses normal and equal bilaterally. ABDOMEN: Soft, nontender, normoactive bowel sounds. No guarding, no rebound. No masses EXTREMITIES: Normal inspection, Normal range of motion, no edema. No clubbing or cyanosis. NEUROLOGICAL: Cranial nerves II through XII grossly intact. Normal speech, normal gait, no focal sensorimotor deficits SKIN: Warm, Dry, normal turgor, no rashes or lesions noted. ED Treatment Course - LABORATORY CBC & Chemistry Diagram: 08/11/19 11:15 08/11/19 11:15 Medical Decision Making - Medical Decision Making 08/11/19 11:39 Mr. Osman is a 78 yo male w/ pmh as described who presents for evaluation of non- specific symptoms of decreased energy. Upon call to [place] more information obtained that patient was difficult to awaken w/ decreased BP this morning. Patient also complaining of RUQ abdominal pain upon arrival however reporting he feels fine and would like to go home upon repeat interview. Patient likewise noted to be dry heaving w/ vomitus on clothing upon arrival however no further symptoms. Will evaluate patient for acute process with cardiac labs, EKG, CXR and evaluate for abdominal process w/ CTAP w/ IV contrast. Further workup pending. 08/11/19 16:05 CTAP negative for acute process. Minor UTI noted as below. Patient started on ABX in ER and Rx sent to patient's pharmacy. Labs significant for creatinine elevated from baseline as below. Nephrology consulted. 08/11/19 17:36 Discussed patient with Nephrology who is concerned over elevation. Patient will be admitted for further evaluation of acute on chronic ISMA. 08/11/19 18:01 Patient admitted to hospitalist. Discussed patient w/ Solar Project Engineer Carmine at [facility] and notified of admission. Laboratory Results - last 24 hr 08/11/19 08/11/19 08/11/19 10:55 11:15 11:15 WBC 6.9 RBC 3.57 L Hgb 10.4 L Hct 32.6 L D MCV 91.4 MCH 29.1 MCHC 31.9 L RDW 14.9 Plt Count 416 D MPV 7.2 L Absolute Neuts (auto) 4.6 Neutrophils % 66.9 Lymphocytes % 18.3 D Monocytes % 11.4 H Eosinophils % 2.7 D Basophils % 0.7 D Nucleated RBC % 0 Sodium 143 Potassium 4.3 Chloride 106 Carbon Dioxide 28 Anion Gap 9 BUN 70.5 H Creatinine 3.0 H Est GFR (CKD-EPI)AfAm 22.35 Est GFR (CKD-EPI)NonAf 19.28 POC Glucometer 210 Random Glucose 211 H Calcium 8.6 Total Bilirubin 0.2 AST 21 ALT 34 Alkaline Phosphatase 76 Creatine Kinase 193 Creatine Kinase Index 0.7 CK-MB (CK-2) 1.4 Troponin I 0.03 Total Protein 7.3 Albumin 2.8 L Total Amylase Lipase Urine Color Urine Appearance Urine pH Ur Specific [place] Urine Protein Urine Glucose (UA) Urine Ketones Urine Blood Urine Nitrite Urine Bilirubin Urine Urobilinogen Ur Leukocyte Esterase Urine WBC (Auto) Urine RBC (Auto) Urine Casts (Auto) U Epithel Cells (Auto) Urine Bacteria (Auto) 08/11/19 08/11/19 11:15 15:16 WBC RBC Hgb Hct MCV MCH MCHC RDW Plt Count MPV Absolute Neuts (auto) Neutrophils % Lymphocytes % Monocytes % Eosinophils % Basophils % Nucleated RBC % Sodium Potassium Chloride Carbon Dioxide Anion Gap BUN Creatinine Est GFR (CKD-EPI)AfAm Est GFR (CKD-EPI)NonAf POC Glucometer Random Glucose Calcium Total Bilirubin AST ALT Alkaline Phosphatase Creatine Kinase Creatine Kinase Index CK-MB (CK-2) Troponin I Total Protein Albumin Total Amylase 112 Lipase 259 Urine Color Yellow Urine Appearance Clear Urine pH 5.0 Ur Specific [place] 1.011 Urine Protein Negative Urine Glucose (UA) Negative Urine Ketones Negative Urine Blood Negative Urine Nitrite Negative Urine Bilirubin Negative Urine Urobilinogen 0.2 Ur Leukocyte Esterase Trace Urine WBC (Auto) 5 Urine RBC (Auto) 1 Urine Casts (Auto) 3 U Epithel Cells (Auto) 2.9 Urine Bacteria (Auto) 456.3 Discharge - Discharge Information Problems reviewed: Yes Clinical Impression/Diagnosis: Acute kidney injury superimposed on chronic kidney disease Abdominal pain Qualifiers: Abdominal location: unspecified location Qualified Code(s): R10.9 - Unspecified abdominal pain - Admission Yes - Follow up/Referral - Patient Discharge Instructions - Post Discharge Activity
[2019-08-11] MEDS ORDERED: ONDANSETRON 4 MG/2 ML VIAL ONE (11:18)
[2019-08-11 11:24] LABS: BASO % 0.7 % (0-2.0); EOS % 2.7 % (0-4.5); HEMATOCRIT 32.6 % (35.4-49); HEMOGLOBIN 10.4 GM/dL (11.7-16.9); LYMPH % 18.3 % (8-40); MCH 29.1 pg (25.7-33.7); MCHC 31.9 g/dl (32.0-35.9); MEAN CELL VOLUME 91.4 fl (80-96); MEAN PLT VOLUME 7.2 fl (7.5-11.1); MONO % 11.4 % (3.8-10.2); NEUT % 66.9 % (42.8-82.8); PLATELET COUNT 416 K/MM3 (134-434); RBC 3.57 M/mm3 (4.00-5.60); RDW 14.9 % (11.9-15.9); WHITE BLOOD COUNT 6.9 K/mm3 (4.0-10.0)
[2019-08-11 11:48] LABS: AMYLASE 112 U/L (25-115); LIPASE 259 U/L (73-393)
[2019-08-11] MEDS ORDERED: ACETAMINOPHEN 1000 MG/100 ML VIAL (NON FORMULARY) IVPB ONE (11:58)
[2019-08-11 12:01] LABS: ALBUMIN 2.8 g/dl (3.4-5.0); BILIRUBIN,TOTAL 0.2 mg/dL (0.2-1); BLOOD UREA NITROGEN 70.5 mg/dL (7-18); CALCIUM 8.6 mg/dL (8.5-10.1); POTASSIUM 4.3 mmol/L (3.5-5.1); TOT PROT 7.3 g/dl (6.4-8.2)
--- NOTE | 2019-08-11 12:05 | EKG ---
Test Reason : Blood Pressure : / mmHG Vent. Rate : 060 BPM Atrial Rate : 060 BPM P-R Int : 152 ms QRS Dur : 086 ms QT Int : 438 ms P-R-T Axes : 070 009 196 degrees QTc Int : 438 ms NORMAL SINUS RHYTHM POSSIBLE LEFT ATRIAL ENLARGEMENT LEFT VENTRICULAR HYPERTROPHY WITH REPOLARIZATION ABNORMALITY ABNORMAL ECG WHEN COMPARED WITH ECG OF 03-AUG-2019 10:12, NON-SPECIFIC CHANGE IN ST SEGMENT IN ANTERIOR LEADS Confirmed by SHERLEY TRIVEDI, DARLENE ([id number]) on 08/11/2019 12:04:51 PM Referred By: Confirmed By:DARLENE LEPE MD
--- NOTE | 2019-08-11 12:21 | PDOC ---
Documentation entered by Siva Avilez SCRIBE, acting as scribe for Sukhwinder Mathew MD. Sukhwinder Mathew MD: This documentation has been prepared by the Raghav gamez Daniel, SCRIBE, under my direction and personally reviewed by me in its entirety. I confirm that the documentation accurately reflects all work, treatment, procedures, and medical decision making performed by me. Attending Attestation - Resident Resident Name: PonceAndrei - ED Attending Attestation I have performed the following: I have examined & evaluated the patient, The case was reviewed & discussed with the resident, I agree w/resident's findings & plan, Exceptions are as noted - HPI HPI: 08/11/19 11:33 The patient is a 78 year old male with a past medical history of HTN, HLD, vascular dementia, left sided weakness, CKD, diabetes, BPH, diastolic CHF, and pulmonary hypertension here today from [place] for evaluation of general weakness and abdominal pain for 1 day. The patient points to his right lower quadrant as the source of his pain. Upon arrival to the emergency department, he had one episode of nonbloody nonbilious yellow emesis. History is limited due to dementia. Patient denies headache, lightheadedness. Denies fever, chills. Denies chest pain, shortness of breath. Denies diarrhea, abdominal pain. Allergies: NKA - Physicial Exam PE: 08/11/19 11:33 GENERAL: Awake, alert, oriented to name, in no acute distress EYES: EOMI, sclera anicteric, conjunctiva clear ENT: Oropharynx clear without exudates. Moist mucosa NECK: Normal ROM, supple, no lymphadenopathy, JVD, or masses LUNGS: Breath sounds equal, clear to auscultation bilaterally. No wheezes, and no crackles HEART: Regular rate and rhythm, normal S1 and S2, no murmurs, rubs or gallops ABDOMEN: Soft, +RLQ ttp, normoactive bowel sounds. No guarding, no rebound. No masses EXTREMITIES: Normal range of motion, no edema. No cords, erythema, or tenderness NEUROLOGICAL: Normal speech, cranial nerves intact, equal strength and sensation b/l SKIN: Warm, Dry, normal turgor, no rashes or lesions noted. - Medical Decision Making 08/11/19 12:19 78-year-old male with multiple medical problems presents emergency department with generalized weakness, right lower quadrant abdominal pain, and nonbloody nonbilious vomiting. Differential includes appendicitis versus colitis versus gastroenteritis versus urinary tract infection versus cholecystitis Plan for labs, urinalysis, CT abdomen and pelvis without contrast (creatinine is 3, thus will obtain a dry scan). We will give IV Tylenol for pain control. UA C/F possible UTI, PO bactrim ordered CTAP negative for acute pathology case discussed with Dr. Schwartz given director of land acquisition bump, recommends admission for acute on chronic RF Pt to be admitted
[2019-08-11] MEDS ORDERED: ACETAMINOPHEN INJECTION 100 ML IVPB ONE (12:55)
[2019-08-11 15:52] LABS: EPI CELLS 2.9 /HPF (0-5/HPF); HYALINE CASTS 3 /lpf (0-8); URINE APPEARANCE CLEAR; URINE BACTERIA 456.3 /hpf (NEGATIVE); URINE BILIRUBIN NEGATIVE (NEGATIVE); URINE COLOR YELLOW; URINE GLUCOSE (UA) NEGATIVE (NEGATIVE); URINE KETONE NEGATIVE (NEGATIVE); URINE LEUK ESTERASE TRACE (NEGATIVE); URINE NITRITE NEGATIVE (NEGATIVE); URINE PROTEIN NEGATIVE (NEGATIVE); URINE RBC 1 /hpf (0-4); URINE UROBILINOGEN 0.2 mg/dL (0.2-1.0); URINE WBC 5 /hpf (0-5)
[2019-08-11] MEDS ORDERED: SULFAMETHOXAZOLE/TRIMETHOPRIM 800MG/160MG D.S. TABLET PO ONE (16:25)
[2019-08-11] MEDS ORDERED: SULFAMETHOXAZOLE/TRIMETHOPRIM 800MG/160MG D.S. TABLET ONE (16:34)
[2019-08-11] MEDS ORDERED: ASPIRIN 81 MG CHEWABLE TABLETS PO SCH (18:00)
[2019-08-11] MEDS ORDERED: TAMSULOSIN HCL 0.4 MG CAP PO SCH (18:00)
--- NOTE | 2019-08-11 18:02 | HP ---
Addendum entered and electronically signed by Desmond Cruz, RESIDENT 08/11/19 18:49: ADDENDUM: Problem next: Normocytic anemia reflective of anemia of chronic disease --> no active bleeding monitor H/H Original Note: <Desmond Cruz - Last Filed: 08/11/19 18:32> CHIEF COMPLAINT: Abdominal pain PCP: Dr. Kal Montalvo HISTORY OF PRESENT ILLNESS: 78yo M with h/o vascular dementia, CVA w/ slight residual weakness, HFpEF, Type 2 DM, BPH, HLD, HTN, CKD stage IV A0 who presents today due to vague abdominal pain that was intermittent. During his workup, pt was noted to have elevation of Cr to 3.0. He was recently discharged yesterday due to having shortness of breath and was discharged on Lisinopril and Lasix 100mg. Pt has dementia and is a poor medical collections. He has recently been using Aspirin 81mg qdaily. He does not have any notable PPI use and has never been on dialysis. Pt denies any headaches, shortness of breath, chest pain, palpitations , abdominal pain, lower extremity edema. Pt reports urinating normal, and has a small-moderate amount of urine and a urinal at bedside with clear-yellow colour. PAST MEDICAL HISTORY: As above PAST SURGICAL HISTORY: None, however limited history due to dementia Social History: Smoking: Denies Alcohol: Denies Drugs: None Comes from [facility] Family History: Not able to obtain due to dementia Allergies No Known Allergies Allergy (Verified 08/11/19 10:47) HOME MEDICATIONS: Home Medications Medication Instructions Recorded Aspirin 81 mg PO DAILY 11/23/18 Atorvastatin Calcium 80 mg PO DAILY 11/23/18 Finasteride [Proscar] 5 mg PO DAILY 11/23/18 Latanoprost/Pf [Latanoprost 0.005% 7.5 ml OP HS 11/23/18 Eye Drop] Tamsulosin HCl [Flomax] 0.4 mg PO DAILY 11/23/18 Albuterol Sulfate Inhaler - 1 puff IH BID 08/03/19 [Ventolin Hfa Inhaler -] Ammonium Lactate Cream [Lac-Hydrin 1 applic TP BID 08/03/19 12% *Cream*] Insulin (Levemir) [Levemir Vial] 36 unit SQ DAILY 08/03/19 Insulin Aspart [Novolog] See Protocol SQ BID 08/03/19 Sennosides [Senna] 2 tab PO HS 08/03/19 Carvedilol [Coreg -] 25 mg PO BID #60 tablet 08/08/19 Furosemide [Lasix -] 100 mg PO DAILY #20 tablet 08/08/19 Lisinopril [Prinivil] 10 mg PO DAILY #30 tablet 08/08/19 REVIEW OF SYSTEMS As per HPI PHYSICAL EXAMINATION Vital Signs - 24 hr 08/11/19 08/11/19 08/11/19 10:12 11:39 12:59 Temperature 98.5 F Pulse Rate 65 Pulse Rate [ 64 59 L Left Radial] Respiratory 18 15 17 Rate Blood Pressure 116/57 L Blood Pressure 125/55 L 91/40 L [Right Arm] O2 Sat by Pulse 100 96 93 L Oximetry (%) 08/11/19 13:55 Temperature Pulse Rate Pulse Rate [ 61 Left Radial] Respiratory 14 Rate Blood Pressure Blood Pressure 125/49 L [Right Arm] O2 Sat by Pulse 98 Oximetry (%) GENERAL: Awake, alert, and fully oriented (knows month), in no acute distress. HEENT: NC/AT, EOMI, STU, sclera anicteric, no periorbital edema, MMM no ulcerations of mouth, no uremic banks of hair noted NECK: No JVD LUNGS: CTA bilaterally. No wheezes, and no crackles. No accessory muscle use. HEART: RRR, normal S1 and S2 without murmur ABDOMEN: Soft, NT/ND, normoactive bowel sounds, no guarding. No hepatojugular reflux. MUSCULOSKELETAL: No CVA tenderness. EXTREMITIES: 2+ pulses, warm, well-perfused. No calf tenderness. No peripheral edema. PSYCHIATRIC: Cooperative. Appropriate mood and affect. SKIN: Warm, dry, loss of pigmentation in areas of lower extremities, dry skin of LE b/l, no rashes or lesions noted Laboratory Results - last 24 hr 08/11/19 08/11/19 08/11/19 10:55 11:15 11:15 WBC 6.9 RBC 3.57 L Hgb 10.4 L Hct 32.6 L D MCV 91.4 MCH 29.1 MCHC 31.9 L RDW 14.9 Plt Count 416 D MPV 7.2 L Absolute Neuts (auto) 4.6 Neutrophils % 66.9 Lymphocytes % 18.3 D Monocytes % 11.4 H Eosinophils % 2.7 D Basophils % 0.7 D Nucleated RBC % 0 Sodium 143 Potassium 4.3 Chloride 106 Carbon Dioxide 28 Anion Gap 9 BUN 70.5 H Creatinine 3.0 H Est GFR (CKD-EPI)AfAm 22.35 Est GFR (CKD-EPI)NonAf 19.28 POC Glucometer 210 Random Glucose 211 H Calcium 8.6 Total Bilirubin 0.2 AST 21 ALT 34 Alkaline Phosphatase 76 Creatine Kinase 193 Creatine Kinase Index 0.7 CK-MB (CK-2) 1.4 Troponin I 0.03 Total Protein 7.3 Albumin 2.8 L Total Amylase Lipase Urine Color Urine Appearance Urine pH Ur Specific [place] Urine Protein Urine Glucose (UA) Urine Ketones Urine Blood Urine Nitrite Urine Bilirubin Urine Urobilinogen Ur Leukocyte Esterase Urine WBC (Auto) Urine RBC (Auto) Urine Casts (Auto) U Epithel Cells (Auto) Urine Bacteria (Auto) 08/11/19 08/11/19 11:15 15:16 WBC RBC Hgb Hct MCV MCH MCHC RDW Plt Count MPV Absolute Neuts (auto) Neutrophils % Lymphocytes % Monocytes % Eosinophils % Basophils % Nucleated RBC % Sodium Potassium Chloride Carbon Dioxide Anion Gap BUN Creatinine Est GFR (CKD-EPI)AfAm Est GFR (CKD-EPI)NonAf POC Glucometer Random Glucose Calcium Total Bilirubin AST ALT Alkaline Phosphatase Creatine Kinase Creatine Kinase Index CK-MB (CK-2) Troponin I Total Protein Albumin Total Amylase 112 Lipase 259 Urine Color Yellow Urine Appearance Clear Urine pH 5.0 Ur Specific [place] 1.011 Urine Protein Negative Urine Glucose (UA) Negative Urine Ketones Negative Urine Blood Negative Urine Nitrite Negative Urine Bilirubin Negative Urine Urobilinogen 0.2 Ur Leukocyte Esterase Trace Urine WBC (Auto) 5 Urine RBC (Auto) 1 Urine Casts (Auto) 3 U Epithel Cells (Auto) 2.9 Urine Bacteria (Auto) 456.3 Active Medications Atorvastatin Calcium (Lipitor -) 80 mg PO HS [facility] Carvedilol (Coreg -) 25 mg PO BID [facility] Finasteride (Proscar -) 5 mg PO DAILY [facility] Heparin Sodium (Porcine) (Heparin -) 5,000 unit SQ TID [facility] Insulin Detemir (Levemir Vial) 36 units SQ AM [facility] Senna (Senna -) 2 tab PO HS [facility] Tamsulosin HCl (Flomax -) 0.4 mg PO Q12H LARRY ASSESSMENT/PLAN: Acute on Chronic renal injury Uremia BPH Vascular dementia History of CVA Type 2 DM HTN HLD --Pt with acute rise in Cr with recent initiation of ACEi on chronic salicylate and previous use of NSAIDs and history of DM --Etiologies of CKD are vast --Due to BPH will r/o obstructive causes --Renal/bladder U/S --If U/S is delayed can bladder scan --Discontinue ACEi and hold Lasix at this time due to lack of acute overload --Will send UCr and UUrea to calculate Urine urea --Send urine eosinophils as patient could have potentially been given AIN inducing drug, however low suspicion for this etiology --Doubt ATN even though fluctuations of BP are noted --Avoid nephrotoxic agents and monitor Cr and BUN --Monitor daily weights; monitor urine output --Nephrology on board --UA not really reflective of UTI --Await cultures and would leave off ABX for this time --BGM ACHS --Levemir home dose (36U) to be ordered --ISS for coverage as well --Due to holding Lisinopril may have to start alternative antihypertensive, but pt's BP is slightly low --Continue home dose statin FEN: Fluids: None; PO Electrolyte abnormalities: None; Monitor K in setting of renal failure Nutrition: Renal diabetic diet PPX: DVT - Heparin TID SQ GI - AVOID PPI (AIN risk) Dispo: M/S admit Case discussed Desmond Cruz DO - IM PGY-3 Visit type - Emergency Visit Emergency Visit: Yes ED Registration Date: 08/11/19 Care time: The patient presented to the Emergency Department on the above date and was hospitalized for further evaluation of their emergent condition. - New Patient This patient is new to me today: Yes Date on this admission: 08/11/19 - Critical Care Critical Care patient: No ATTENDING PHYSICIAN STATEMENT I saw and evaluated the patient. I reviewed the resident's note and discussed the case with the resident. I agree with the resident's findings and plan as documented. SUBJECTIVE: OBJECTIVE: ASSESSMENT AND PLAN: <Delmar Whatley - Last Filed: 08/12/19 11:25> Seen and examined; personally verified all ferraro exam findings and historical features as well as labs, vitals, and diagnostics. Agree with resident plan aside from as supplemented by myself. He is ill and requires inpatient care and monitoring to prevent further decompensation due to the indicated issues discussed above. Agree with complaints per resident note; he comes back with vague abdominal pain without nausea/vomiting or localizing symptoms and is found to have ISMA on CKD with hydronephrosis and increased PVRV. 10 sys ROS done and negative aside from HPI FH negative for urologic cancers and sudden cardiac VS, labs, imaging reviewed NAD, AAO, resting in bed NC AT EOMI PERRLA Vaguely painful to palpation with ND +BS No FND, CN intact without distortions in sensorium HR wnl, s1/2 Neck without JVD, trachea midline Moves all 4 ext 5/5 str with nl muscle tone EKG without acute ischemic changes Reviewed prior DC summary from recent admission and prior subspecialty consults. A/P: Patient is seen and examined as readmit and is noted to have abdominal pain with ISMA on CKD with hydronephrosis and increased PVRV and enlarged prostate with documented hx BPH. There was documented concern of UTI. Problems include: -ISMA on CKD III-IV (Consulting nephrology, FU urine studies, hold nephrotoxins. Likely postobstructive so will need to monitor for postobstructive diuresis. He can void but his bladder is emptying incompletely and it is >200 at a minimum which is abnormal.) -Possible Cystitis (Empiric abx, DC if [-] cx, at high risk due to obstruction.) -Likely obstructive uropathy secondary to BPH with hydro (increasing tams, continue proscar, consult uro. Inserting riley. Monitor repeat DON per their service to monitor for resolution of hydro) -Hx HFpEF, not in acute exacerbation (Holding lasix) -Hx HTN -Hx HLD -Hx DM Full Code ATTENDING PHYSICIAN STATEMENT I saw and evaluated the patient. I reviewed the resident's note and discussed the case with the resident. I agree with the resident's findings and plan as documented. SUBJECTIVE: OBJECTIVE: ASSESSMENT AND PLAN:
[2019-08-11] MEDS: CARVEDILOL 25 MG TABLET (FP) PO SCH (22:42)
[2019-08-11] MEDS: ATORVASTATIN CA 80 MG TABLET (FP) PO SCH (22:42)
[2019-08-11] MEDS: TAMSULOSIN HCL 0.4 MG CAP PO SCH (22:42)
[2019-08-11] MEDS: INSULIN SLIDING SCALE (NOVOLOG) 1 VIAL SQ SCH (22:42)
[2019-08-11] MEDS: SENNOSIDES 8.6MG TABLET (FP) PO SCH (22:43)
[2019-08-11] MEDS: HEPARIN NA (PORCINE) 5,000 UNITS/ML 1ML VIAL SQ SCH (22:43)
[2019-08-11] MEDS: FINASTERIDE 5 MG TABLET (FP) PO SCH (22:45)
[2019-08-12] MEDS: INSULIN SLIDING SCALE (NOVOLOG) 1 VIAL SQ SCH ×4 (06:10→21:06)
[2019-08-12] MEDS: HEPARIN NA (PORCINE) 5,000 UNITS/ML 1ML VIAL SQ SCH ×3 (06:40→21:02)
[2019-08-12] MEDS: INSULIN (LEVEMIR) 100 UNITS/ML UNITS SQ SCH ×2 (06:40→08:42)
--- NOTE | 2019-08-12 07:08 | PN ---
Progress Note (short form) - Note Progress Note: Seen and examined; personally verified all ferraro exam findings and historical features as well as labs, vitals, and diagnostics. Agree with resident plan aside from as supplemented by myself. Continues to require inpatient care. Pain somewhat improved; I am informed refused riley without lido jelly so inserting with agent 10 sys ROS done and negative aside from HPI FH negative for urologic cancers and sudden cardiac VS, labs, imaging reviewed NAD, AAO, resting in bed NC AT EOMI PERRLA Vaguely painful to palpation with ND +BS No FND, CN intact without distortions in sensorium HR wnl, s1/2 Neck without JVD, trachea midline Moves all 4 ext 5/5 str with nl muscle tone EKG without acute ischemic changes Reviewed prior DC summary from recent admission and prior subspecialty consults. A/P: Patient is seen and examined as readmit and is noted to have abdominal pain with ISMA on CKD with hydronephrosis and increased PVRV and enlarged prostate with documented hx BPH. There was documented concern of UTI. Problems include: -ISMA on CKD III-IV (Consulting nephrology, FU urine studies, hold nephrotoxins. Likely postobstructive so will need to monitor for postobstructive diuresis. He can void but his bladder is emptying incompletely and it is >200 at a minimum which is abnormal. Riley is being inserted with local anesthetic and will monitor BMP and UOP. Followup with uro, nephro. Will defer to specialist when to attempt a voiding trial.) -Possible Cystitis (Empiric abx with ceftriaxone QD, DC if [-] cx, at high risk due to obstruction.) -Likely obstructive uropathy secondary to BPH with hydro (Continue BID tams, finasteride, riley. Monitor repeat DON per their service to monitor for resolution of hydro) -Hx HFpEF, not in acute exacerbation (Holding nephrotoxic CHF meds, euvolemic) -Hx HTN -Hx HLD -Hx DM Full Code
[2019-08-12 08:15] LABS: HEMATOCRIT 29.2 % (35.4-49); HEMOGLOBIN 9.7 GM/dL (11.7-16.9); MCHC 33.2 g/dl (32.0-35.9); MEAN CELL VOLUME 90.2 fl (80-96); MEAN PLT VOLUME 7.1 fl (7.5-11.1); PLATELET COUNT 377 K/MM3 (134-434); RBC 3.23 M/mm3 (4.00-5.60); RDW 14.9 % (11.9-15.9); WHITE BLOOD COUNT 6.6 K/mm3 (4.0-10.0)
[2019-08-12] MEDS: TAMSULOSIN HCL 0.4 MG CAP PO SCH ×2 (08:41→20:18)
[2019-08-12 09:29] LABS: ALBUMIN 2.6 g/dl (3.4-5.0); BILIRUBIN,TOTAL 0.3 mg/dL (0.2-1); BLOOD UREA NITROGEN 58.2 mg/dL (7-18); CALCIUM 8.2 mg/dL (8.5-10.1); CREATININE 2.6 mg/dL (0.55-1.3); MAGNESIUM 2.4 mg/dL (1.8-2.4); PHOSPHOROUS 4.3 mg/dL (2.5-4.9); POTASSIUM 4.1 mmol/L (3.5-5.1); TOT PROT 6.5 g/dl (6.4-8.2)
[2019-08-12] MEDS: FINASTERIDE 5 MG TABLET (FP) PO SCH (09:50)
[2019-08-12] MEDS: CARVEDILOL 25 MG TABLET (FP) PO SCH ×2 (09:50→21:02)
[2019-08-12] MEDS: ASPIRIN COATED 81 MG TABLET.EC PO SCH (09:52)
[2019-08-12] MEDS ORDERED: LIDOCAINE HCL 5% TOP OINTMENT 50 GM TUBE TP ONE (10:16)
[2019-08-12] MEDS ORDERED: cefTRIAXone SODIUM 1 GM VIAL ONE (12:54)
[2019-08-12] MEDS ORDERED: DEXTROSE 5%-WATER - 50 ML IVPB ONE (12:55)
[2019-08-12] MEDS ORDERED: INSULIN (NOVOLOG) ASPART 100 UNITS/ML 10ML VIAL ONE (13:27)
--- NOTE | 2019-08-12 13:41 | CONS ---
DATE OF CONSULTATION: DATE OF DICTATION: 08/12/2019 HISTORY: Patient is a 78-year-old male admitted via the emergency room with history of vague abdominal pain that was intermittent in nature. In the emergency room, the patient's creatinine was 3. He was recently discharged from the hospital after a bout of shortness of breath. Patient does have history of dementia and is a poor historian. He does have history of prostatism including frequency, urgency, and feelings of incomplete bladder emptying. The patient has had a CVA in the past with slight residual weakness. He is a diabetic, hypertensive, dyslipidemic and has history of chronic renal disease. He denies ethanolism or tobacco. He is a resident of the [facility]. He is on multiple medications including a statin, aspirin, Proscar, Flomax, albuterol, insulin, Coreg, Lasix, and Prinivil. On admission, his white count was 6.9, hemoglobin 10.4, hematocrit 32.6. The patient underwent a renal and pelvic ultrasound. This revealed an overdistended bladder with a large postvoid residual. The prostate was enlarged. The kidneys were atrophic. There was a simple cyst in the right upper pole. The patient's BUN and creatinine are presently BUN 58.2, creatinine 2.6. Gilbert catheter is patent. Patient is presently off the floor. Will give examination results at a later time. IJEOMA CUELLAR M.D. [id number]
--- NOTE | 2019-08-12 13:44 | CONS ---
DATE OF CONSULTATION: DATE OF DICTATION: 08/12/2019 ADDENDUM PHYSICAL EXAMINATION: General: Reveals an adult male in no apparent distress but confused to time and place. Abdomen: His abdomen is globus. Bladder is distended. Genitourinary: A Gilbert catheter is placed without difficulty, and 600 mL of clear urine is drained. Testes are normal. No hydroceles or hernias are elicited. Prostate is 3+, firm, nontender. Gastrointestinal: Rectal tone is good. Saddle sensation is present. IMPRESSION: At present is: 1. Obstructive azotemia. 2. Benign prostatic hypertrophy. PLAN: We will monitor his BUN and creatinine. Patient will need a cystoscopy, possible prostate vaporization when medically stable. Arlin [id number]
[2019-08-12] MEDS: CEFTRIAXONE 1 GM in DEXTROSE 5%-WATER - 50 ML IVPB SCH (13:54)
--- NOTE | 2019-08-12 15:04 | CON.NEP ---
Consult Consult Specialty:: Nephrology Reason for Consultation:: isma - History of Present Illness History of Present Illness: 78yo M with h/o vascular dementia, CVA w/ slight residual weakness, HFpEF, Type 2 DM, BPH, HLD, HTN, CKD stage IV who presents today due to vague abdominal pain that was intermittent. During his workup, pt was noted to have elevation of Cr to 3.0. He was recently discharged yesterday due to having shortness of breath and was discharged on Lisinopril and Lasix 100mg. 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 He has recently been using Aspirin 81mg qdaily. He does not have any notable PPI use and has never been on dialysis. Pt denies any headaches, shortness of breath, chest pain, palpitations , abdominal pain, lower extremity edema. He was seen by urology and riley was inserted which produced more than 300cc of urine. He has no specific c/o. 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 Cardio/Vascular: Yes: HTN, Hyperlipdemia Renal/: Yes: Renal Inusuff Endocrine: Yes: Diabetes Mellitus - Alcohol/Substance Use Hx Alcohol Use: No - Smoking History Smoking history: Unknown if ever smoked Have you smoked in the past 12 months: No Home Medications - Allergies Allergies/Adverse Reactions: Allergies Allergy/AdvReac Type Severity Reaction Status Date / Time No Known Allergies Allergy Verified 08/11/19 10:47 - Home Medications Home Medications: Ambulatory Orders Aspirin 81 mg PO DAILY 11/23/18 Atorvastatin Calcium 80 mg PO DAILY 11/23/18 Finasteride [Proscar] 5 mg PO DAILY 11/23/18 Latanoprost/Pf [Latanoprost 0.005% Eye Drop] 7.5 ml OP HS 11/23/18 Tamsulosin HCl [Flomax] 0.4 mg PO DAILY 11/23/18 Albuterol Sulfate Inhaler - [Ventolin Hfa Inhaler -] 1 puff IH BID 08/03/19 Ammonium Lactate Cream [Lac-Hydrin 12% *Cream*] 1 applic TP BID 08/03/19 Insulin (Levemir) [Levemir Vial] 36 unit SQ DAILY 08/03/19 Insulin Aspart [Novolog] See Protocol SQ BID 08/03/19 Sennosides [Senna] 2 tab PO HS 08/03/19 Carvedilol [Coreg -] 25 mg PO BID #60 tablet 08/08/19 Furosemide [Lasix -] 100 mg PO DAILY #20 tablet 08/08/19 Lisinopril [Prinivil] 10 mg PO DAILY #30 tablet 08/08/19 Review of Systems Unable to obtain ROS, reason: dementia Nephrology Consult - Height Height: 5 ft 10 in - Weight Weight: 190 lb 12.8 oz - BMI Body Mass Index (BMI): 27.3 - Lab Results CBC,BMP: CBC, BMP 08/12/19 07:25 08/12/19 07:25 Anion Gap: Anion Gap Anion Gap 7 MMOL/L (8-16) L 08/12/19 07:25 - Imaging Chest X-ray: Report Reviewed (no acute chest pathology) Ultrasound: Report Reviewed (sono reviewed. Showed atrophy and PVR of 330 cc) - Physical Examination Vital Signs: Vital Signs Temperature 98.0 F 08/12/19 10:00 Pulse Rate 67 08/12/19 10:00 Respiratory Rate 18 08/12/19 10:00 Blood Pressure 135/71 08/12/19 10:00 O2 Sat by Pulse Oximetry (%) 98 08/11/19 21:00 Constitutional: Yes: No Distress Eyes: Yes: Conjunctiva Clear, EOM Intact HENT: Yes: Atraumatic, Normocephalic Neck: Yes: Supple, Trachea Midline Cardiovascular: Yes: Regular Rate and Rhythm Respiratory: Yes: CTA Bilaterally Gastrointestinal: Yes: Normal Bowel Sounds Extremities: Yes: WNL Edema: No Psychiatric: Yes: WNL Assessment/Plan IMPRESSION ISMA likely due to urinary retention he is non proteinuric h/o dementia PLAN continue riley drainage already on flomax which would continue urology follow up, possible cysto TURP phos MV
[2019-08-12] MEDS: SENNOSIDES 8.6MG TABLET (FP) PO SCH (21:02)
[2019-08-12] MEDS: ATORVASTATIN CA 80 MG TABLET (FP) PO SCH (21:02)
[2019-08-13] MEDS: INSULIN SLIDING SCALE (NOVOLOG) 1 VIAL SQ SCH ×4 (06:09→21:43)
[2019-08-13] MEDS: HEPARIN NA (PORCINE) 5,000 UNITS/ML 1ML VIAL SQ SCH ×3 (06:10→21:43)
[2019-08-13] MEDS: INSULIN (LEVEMIR) 100 UNITS/ML UNITS SQ SCH (06:34)
[2019-08-13] MEDS: TAMSULOSIN HCL 0.4 MG CAP PO SCH ×2 (08:54→21:42)
--- NOTE | 2019-08-13 09:07 | PN ---
Physical Exam: SUBJECTIVE: Patient seen and examined OBJECTIVE: Vital Signs Period Temp Pulse Resp BP Sys/[place] Pulse Ox Last 24 Hr 97.2 F-98.2 F 57-69 18-18 120-145/57-74 98 GENERAL: The patient is awake, alert, and fully oriented, in no acute distress. HEAD: Normal with no signs of trauma. EYES: PERRL, extraocular movements intact, sclera anicteric, conjunctiva clear. No ptosis. ENT: Ears normal, nares patent, oropharynx clear without exudates, moist mucous membranes. NECK: Trachea midline, full range of motion, supple. LUNGS: Breath sounds equal, clear to auscultation bilaterally, no wheezes, no crackles, no accessory muscle use. HEART: Regular rate and rhythm, S1, S2 without murmur, rub or gallop. ABDOMEN: Soft, nontender, nondistended, normoactive bowel sounds, no guarding, no rebound, no hepatosplenomegaly, no masses. EXTREMITIES: 2+ pulses, warm, well-perfused, no edema. NEUROLOGICAL: Cranial nerves II through XII grossly intact. Normal speech, gait not observed. PSYCH: Normal mood, normal affect. SKIN: Warm, dry, normal turgor, no rashes or lesions noted Laboratory Results - last 24 hr 08/11/19 08/11/19 08/12/19 18:16 18:16 07:25 Sodium 147 H Potassium 4.1 Chloride 111 H Carbon Dioxide 29 Anion Gap 7 L BUN 58.2 H Creatinine 2.6 H Est GFR (CKD-EPI)AfAm 26.57 Est GFR (CKD-EPI)NonAf 22.93 POC Glucometer Random Glucose 161 H Calcium 8.2 L Phosphorus 4.3 Magnesium 2.4 Total Bilirubin 0.3 AST 14 L ALT 28 Alkaline Phosphatase 71 Total Protein 6.5 Albumin 2.6 L Ur Random Creatinine 87.0 Ur Random Urea Nitrogn 503 08/12/19 08/12/19 08/12/19 11:51 17:54 21:05 Sodium Potassium Chloride Carbon Dioxide Anion Gap BUN Creatinine Est GFR (CKD-EPI)AfAm Est GFR (CKD-EPI)NonAf POC Glucometer 186 167 150 Random Glucose Calcium Phosphorus Magnesium Total Bilirubin AST ALT Alkaline Phosphatase Total Protein Albumin Ur Random Creatinine Ur Random Urea Nitrogn 08/13/19 05:37 Sodium Potassium Chloride Carbon Dioxide Anion Gap BUN Creatinine Est GFR (CKD-EPI)AfAm Est GFR (CKD-EPI)NonAf POC Glucometer 108 Random Glucose Calcium Phosphorus Magnesium Total Bilirubin AST ALT Alkaline Phosphatase Total Protein Albumin Ur Random Creatinine Ur Random Urea Nitrogn Active Medications Generic Name Dose Route Start Last Admin Trade Name Justine PRN Reason Stop Dose Admin Aspirin 81 mg 08/12/19 10:00 08/12/19 09:52 Ecotrin - PO 81 mg DAILY LARRY Administration Atorvastatin Calcium 80 mg 08/11/19 22:00 08/12/19 21:02 Lipitor - PO 80 mg HS LARRY Administration Carvedilol 25 mg 08/11/19 22:00 08/12/19 21:02 Coreg - PO 25 mg BID LARRY Administration Finasteride 5 mg 08/11/19 18:00 08/12/19 09:50 Proscar - PO 5 mg DAILY LARRY Administration Heparin Sodium (Porcine) 5,000 unit 08/11/19 22:00 08/13/19 06:10 Heparin - SQ 5,000 unit TID LARRY Administration Ceftriaxone Sodium 1 gm/ 50 mls @ 200 mls/hr 08/12/19 12:00 08/12/19 13:54 Dextrose IVPB 200 mls/hr DAILY LARRY Administration Protocol Insulin Aspart 1 vial 08/11/19 22:00 08/13/19 06:09 Novolog Vial Sliding Scale - SQ Not Given ACHS [facility] Protocol Insulin Detemir 36 units 08/12/19 07:00 08/13/19 06:34 Levemir Vial SQ 36 units AM LARRY Administration Senna 2 tab 08/11/19 22:00 08/12/19 21:02 Senna - PO 2 tab HS LARRY Administration Tamsulosin HCl 0.4 mg 08/11/19 20:30 08/13/19 08:54 Flomax - PO 0.4 mg Q12H LARRY Administration ASSESSMENT/PLAN:
[2019-08-13 09:40] LABS: HEMATOCRIT 31.1 % (35.4-49); HEMOGLOBIN 10.3 GM/dL (11.7-16.9); MCHC 33.1 g/dl (32.0-35.9); MEAN CELL VOLUME 90.5 fl (80-96); MEAN PLT VOLUME 7.1 fl (7.5-11.1); PLATELET COUNT 419 K/MM3 (134-434); RBC 3.44 M/mm3 (4.00-5.60); RDW 14.5 % (11.9-15.9); WHITE BLOOD COUNT 6.1 K/mm3 (4.0-10.0)
[2019-08-13 09:50] LABS: INR 1.03 (0.83-1.09); PROTHROMBIN TIME (PATIENT) 12.2 SEC (9.7-13.0)
[2019-08-13] MEDS ORDERED: cefTRIAXone SODIUM 1 GM VIAL ONE (09:59)
[2019-08-13 10:00] LABS: BLOOD UREA NITROGEN 45.6 mg/dL (7-18); CALCIUM 8.5 mg/dL (8.5-10.1); CREATININE 2.4 mg/dL (0.55-1.3); MAGNESIUM 2.4 mg/dL (1.8-2.4); PHOSPHOROUS 3.7 mg/dL (2.5-4.9); POTASSIUM 3.9 mmol/L (3.5-5.1)
[2019-08-13] MEDS ORDERED: DEXTROSE 5%-WATER - 50 ML IVPB ONE (10:00)
[2019-08-13] MEDS: CEFTRIAXONE 1 GM in DEXTROSE 5%-WATER - 50 ML IVPB SCH (10:27)
--- NOTE | 2019-08-13 10:32 | PN ---
Progress Note (short form) - Note Progress Note: RENAL Awake and alert comfortable asking about going home Last Vital Signs Temp Pulse Resp BP Pulse Ox 97.9 F 60 20 140/65 95 08/13/19 09:55 08/13/19 09:55 08/13/19 09:55 08/13/19 09:55 08/13/19 10:11 lungs clear cvs s1s2 rr abd soft ext no edema Current Medications Generic Name Dose Route Start Last Admin Trade Name Justine PRN Reason Stop Dose Admin Aspirin 81 mg 08/12/19 10:00 08/12/19 09:52 Ecotrin - PO 81 mg DAILY LARRY Administration Atorvastatin Calcium 80 mg 08/11/19 22:00 08/12/19 21:02 Lipitor - PO 80 mg HS LARRY Administration Carvedilol 25 mg 08/11/19 22:00 08/12/19 21:02 Coreg - PO 25 mg BID LARRY Administration Finasteride 5 mg 08/11/19 18:00 08/12/19 09:50 Proscar - PO 5 mg DAILY LARRY Administration Heparin Sodium (Porcine) 5,000 unit 08/11/19 22:00 08/13/19 06:10 Heparin - SQ 5,000 unit TID LARRY Administration Ceftriaxone Sodium 1 gm/ 50 mls @ 200 mls/hr 08/12/19 12:00 08/13/19 10:27 Dextrose IVPB 200 mls/hr DAILY LARRY Administration Protocol Insulin Aspart 1 vial 08/11/19 22:00 08/13/19 06:09 Novolog Vial Sliding Scale - SQ Not Given ACHS LARRY Protocol Insulin Detemir 36 units 08/12/19 07:00 08/13/19 06:34 Levemir Vial SQ 36 units AM LARRY Administration Senna 2 tab 08/11/19 22:00 08/12/19 21:02 Senna - PO 2 tab HS LARRY Administration Tamsulosin HCl 0.4 mg 08/11/19 20:30 08/13/19 08:54 Flomax - PO 0.4 mg Q12H LARRY Administration CBC, BMP 08/13/19 08:15 08/13/19 08:15 IMPRESSION ISMA likely due to urinary retention- improved he is non proteinuric h/o dementia PLAN continue riley drainage already on flomax which would continue urology follow up, possible cysto TURP phosphorus is normal- no changes MV
[2019-08-13] MEDS: ASPIRIN COATED 81 MG TABLET.EC PO SCH (11:46)
[2019-08-13] MEDS: CARVEDILOL 25 MG TABLET (FP) PO SCH ×2 (11:46→21:42)
[2019-08-13] MEDS: FINASTERIDE 5 MG TABLET (FP) PO SCH (11:46)
[2019-08-13] MEDS ORDERED: INSULIN (NOVOLOG) ASPART 100 UNITS/ML 10ML VIAL ONE (12:13)
[2019-08-13] MEDS: SENNOSIDES 8.6MG TABLET (FP) PO SCH (21:42)
[2019-08-13] MEDS: ATORVASTATIN CA 80 MG TABLET (FP) PO SCH (21:42)
[2019-08-14] MEDS: HEPARIN NA (PORCINE) 5,000 UNITS/ML 1ML VIAL SQ SCH ×3 (06:11→21:49)
[2019-08-14] MEDS: INSULIN SLIDING SCALE (NOVOLOG) 1 VIAL SQ SCH ×5 (07:09→21:49)
[2019-08-14] MEDS: INSULIN (LEVEMIR) 100 UNITS/ML UNITS SQ SCH (07:10)
[2019-08-14] MEDS ORDERED: cefTRIAXone SODIUM 1 GM VIAL ONE (09:43)
[2019-08-14] MEDS ORDERED: DEXTROSE 5%-WATER - 50 ML IVPB ONE (09:43)
[2019-08-14] MEDS: CEFTRIAXONE 1 GM in DEXTROSE 5%-WATER - 50 ML IVPB SCH (09:46)
[2019-08-14] MEDS: ASPIRIN COATED 81 MG TABLET.EC PO SCH (09:47)
[2019-08-14] MEDS: CARVEDILOL 25 MG TABLET (FP) PO SCH ×2 (09:47→21:49)
[2019-08-14] MEDS: TAMSULOSIN HCL 0.4 MG CAP PO SCH ×2 (09:47→21:49)
[2019-08-14] MEDS: FINASTERIDE 5 MG TABLET (FP) PO SCH (09:47)
--- NOTE | 2019-08-14 14:46 | PN ---
Progress Note (short form) - Note Progress Note: UROLOGY NOTE. PT. WITH H/O REC. RETENTION AND POST-RENAL AZOTEMIAPLAN- CYSTO, POSS TUVP/TURP IN AM IF MED. OK
--- NOTE | 2019-08-14 14:52 | PN ---
Progress Note, Physician Chief Complaint: seen and examined, doing well, no new complaints, - Current Medication List Current Medications: Active Medications Aspirin (Ecotrin -) 81 mg PO DAILY [facility] Last Admin: 08/14/19 09:47 Dose: 81 mg Atorvastatin Calcium (Lipitor -) 80 mg PO HS [facility] Last Admin: 08/13/19 21:42 Dose: 80 mg Carvedilol (Coreg -) 25 mg PO BID [facility] Last Admin: 08/14/19 09:47 Dose: 25 mg Finasteride (Proscar -) 5 mg PO DAILY [facility] Last Admin: 08/14/19 09:47 Dose: 5 mg Heparin Sodium (Porcine) (Heparin -) 5,000 unit SQ TID [facility] Last Admin: 08/14/19 14:03 Dose: 5,000 unit Ceftriaxone Sodium 1 gm/ (Dextrose) 50 mls @ 200 mls/hr IVPB DAILY [facility]; Protocol Last Admin: 08/14/19 09:46 Dose: 200 mls/hr Insulin Aspart (Novolog Vial Sliding Scale -) 1 vial SQ ACHS [facility]; Protocol Last Admin: 08/14/19 11:54 Dose: 2 units Insulin Detemir (Levemir Vial) 36 units SQ AM [facility] Last Admin: 08/14/19 07:10 Dose: 36 units Senna (Senna -) 2 tab PO HS [facility] Last Admin: 08/13/19 21:42 Dose: 2 tab Tamsulosin HCl (Flomax -) 0.4 mg PO Q12H [facility] Last Admin: 08/14/19 09:47 Dose: 0.4 mg - Objective Vital Signs: Vital Signs Temperature 98.9 F 08/14/19 09:36 Pulse Rate 68 08/14/19 09:36 Respiratory Rate 20 08/14/19 09:36 Blood Pressure 113/66 08/14/19 09:36 O2 Sat by Pulse Oximetry (%) 97 08/14/19 09:00 Constitutional: Yes: Well Nourished Eyes: Yes: EOM Intact HENT: Yes: Atraumatic, Normocephalic Neck: Yes: Supple, Trachea Midline Cardiovascular: Yes: Regular Rate and Rhythm Respiratory: Yes: Regular, CTA Bilaterally Genitourinary: Yes: WNL, Bladder Distention, Other (riley in place,) Edema: No Labs: CBC, BMP 08/13/19 08:15 08/13/19 08:15 INR, PTT INR 1.03 (0.83-1.09) 08/13/19 08:15 - ....Imaging Ultrasound: Report Reviewed EKG: Report Reviewed, Image Reviewed Impression/Plan Impression/Plan: A/P: Patient is seen and examined as readmit and is noted to have abdominal pain with ISMA on CKD with hydronephrosis and increased PVRV and enlarged prostate with documented hx BPH. Problems include: -ISMA on CKD , post renal azotemia, and has urinary retention, cystoscopy and possible turp in am, reviewed the ekg, non specific st t changes, and echo 07/2019: mod lvh, nl lvef, rv tds, mod tr, rvsp >60, mild pr, pt is asymptomatic for any cardiac symptoms, is medically stable to undergo procedure, -Hx HTn, controlled -Hx HLD -DM control acceptable on sliding scale and levemir, Visit type - Emergency Visit Emergency Visit: No - New Patient This patient is new to me today: Yes Date on this admission: 08/14/19 - Critical Care Critical Care patient: No - Discharge Referral Referred to [facility] No
[2019-08-14 14:55] VITALS: BMI 27.2
[2019-08-14] MEDS ORDERED: INSULIN (NOVOLOG) ASPART 100 UNITS/ML 10ML VIAL ONE (21:28)
[2019-08-14] MEDS: ATORVASTATIN CA 80 MG TABLET (FP) PO SCH (21:49)
[2019-08-14] MEDS: SENNOSIDES 8.6MG TABLET (FP) PO SCH (21:49)
[2019-08-15] MEDS: INSULIN (LEVEMIR) 100 UNITS/ML UNITS SQ SCH (07:00)
[2019-08-15] MEDS: INSULIN SLIDING SCALE (NOVOLOG) 1 VIAL SQ SCH ×4 (07:00→22:08)
[2019-08-15] MEDS ORDERED: cefTRIAXone SODIUM 1 GM VIAL ONE (08:54)
[2019-08-15] MEDS ORDERED: DEXTROSE 5%-WATER - 50 ML IVPB ONE (08:55)
[2019-08-15 08:59] LABS: BASO % 0.5 % (0-2.0); EOS % 2.6 % (0-4.5); HEMATOCRIT 30.7 % (35.4-49); HEMOGLOBIN 10.3 GM/dL (11.7-16.9); LYMPH % 23.6 % (8-40); MCH 30.1 pg (25.7-33.7); MCHC 33.6 g/dl (32.0-35.9); MEAN CELL VOLUME 89.5 fl (80-96); MEAN PLT VOLUME 6.9 fl (7.5-11.1); MONO % 9.6 % (3.8-10.2); NEUT % 63.7 % (42.8-82.8); PLATELET COUNT 384 K/MM3 (134-434); RBC 3.43 M/mm3 (4.00-5.60); RDW 14.4 % (11.9-15.9); WHITE BLOOD COUNT 6.3 K/mm3 (4.0-10.0)
[2019-08-15 09:03] LABS: ALBUMIN 2.6 g/dl (3.4-5.0); BILIRUBIN,TOTAL 0.2 mg/dL (0.2-1); CALCIUM 8.2 mg/dL (8.5-10.1); POTASSIUM 4.2 mmol/L (3.5-5.1); TOT PROT 6.6 g/dl (6.4-8.2)
[2019-08-15] MEDS: CARVEDILOL 25 MG TABLET (FP) PO SCH ×2 (09:06→22:08)
[2019-08-15] MEDS: FINASTERIDE 5 MG TABLET (FP) PO SCH (09:06)
[2019-08-15] MEDS: CEFTRIAXONE 1 GM in DEXTROSE 5%-WATER - 50 ML IVPB SCH (09:06)
[2019-08-15] MEDS: TAMSULOSIN HCL 0.4 MG CAP PO SCH ×2 (09:06→20:53)
[2019-08-15 09:09] LABS: INR 1.08 (0.83-1.09); PROTHROMBIN TIME (PATIENT) 12.8 SEC (9.7-13.0)
--- NOTE | 2019-08-15 09:16 | PN ---
Teaching Attending Note Name of Resident: Desmond Cruz ATTENDING PHYSICIAN STATEMENT I saw and evaluated the patient. I reviewed the resident's note and discussed the case with the resident. I agree with the resident's findings and plan as documented. SUBJECTIVE: Patient is confused. He denies pain. OBJECTIVE: Vital Signs Period Temp Pulse Resp BP Sys/Escoto Pulse Ox Last 24 Hr 98.0 F-98.9 F 62-74 18-20 113-152/60-68 97 HEART: S1S2, RRR LUNGS: Clear ABDOMEN:Soft, non-tender, non-distended, normal BS EXTREMITIES: No edema Laboratory Results - last 24 hr 08/11/19 08/14/19 08/14/19 18:16 11:52 17:05 WBC RBC Hgb Hct MCV MCH MCHC RDW Plt Count MPV Absolute Neuts (auto) Neutrophils % Lymphocytes % Monocytes % Eosinophils % Basophils % Nucleated RBC % Sodium Potassium Chloride Carbon Dioxide Anion Gap BUN Creatinine Est GFR (CKD-EPI)AfAm Est GFR (CKD-EPI)NonAf POC Glucometer 153 142 Random Glucose Calcium Total Bilirubin AST ALT Alkaline Phosphatase Total Protein Albumin Urine Eosinophils None seen 08/14/19 08/15/19 08/15/19 21:48 06:00 06:59 WBC RBC Hgb Hct MCV MCH MCHC RDW Plt Count MPV Absolute Neuts (auto) Neutrophils % Lymphocytes % Monocytes % Eosinophils % Basophils % Nucleated RBC % Sodium 143 Potassium 4.2 Chloride 112 H Carbon Dioxide 28 Anion Gap 3 L BUN 32.0 H Creatinine 2.0 H Est GFR (CKD-EPI)AfAm 36.49 Est GFR (CKD-EPI)NonAf 31.48 POC Glucometer 203 127 Random Glucose 118 H Calcium 8.2 L Total Bilirubin 0.2 AST 23 ALT 32 Alkaline Phosphatase 70 Total Protein 6.6 Albumin 2.6 L Urine Eosinophils 08/15/19 08:20 WBC 6.3 RBC 3.43 L Hgb 10.3 L Hct 30.7 L MCV 89.5 MCH 30.1 MCHC 33.6 RDW 14.4 Plt Count 384 MPV 6.9 L Absolute Neuts (auto) 4.0 Neutrophils % 63.7 Lymphocytes % 23.6 D Monocytes % 9.6 Eosinophils % 2.6 Basophils % 0.5 Nucleated RBC % 0 Sodium Potassium Chloride Carbon Dioxide Anion Gap BUN Creatinine Est GFR (CKD-EPI)AfAm Est GFR (CKD-EPI)NonAf POC Glucometer Random Glucose Calcium Total Bilirubin AST ALT Alkaline Phosphatase Total Protein Albumin Urine Eosinophils Current Medications Generic Name Dose Route Start Last Admin Trade Name Justine PRN Reason Stop Dose Admin Aspirin 81 mg 08/12/19 10:00 08/14/19 09:47 Ecotrin - PO 81 mg DAILY [facility] Administration Atorvastatin Calcium 80 mg 08/11/19 22:00 08/14/19 21:49 Lipitor - PO 80 mg HS [facility] Administration Carvedilol 25 mg 08/11/19 22:00 08/15/19 09:06 Coreg - PO 25 mg BID [facility] Administration Finasteride 5 mg 08/11/19 18:00 08/15/19 09:06 Proscar - PO 5 mg DAILY [facility] Administration Ceftriaxone Sodium 1 gm/ 50 mls @ 200 mls/hr 08/12/19 12:00 08/15/19 09:06 Dextrose IVPB 200 mls/hr DAILY [facility] Administration Protocol Insulin Aspart 1 vial 08/11/19 22:00 08/15/19 07:00 Novolog Vial Sliding Scale - SQ Not Given ACHS [facility] Protocol Insulin Detemir 36 units 08/12/19 07:00 08/15/19 07:00 Levemir Vial SQ 36 units AM [facility] Administration Senna 2 tab 08/11/19 22:00 08/14/19 21:49 Senna - PO 2 tab HS [facility] Administration Tamsulosin HCl 0.4 mg 08/11/19 20:30 08/15/19 09:06 Flomax - PO 0.4 mg Q12H [facility] Administration ASSESSMENT AND PLAN: This is a 78 year old man with a history of HTN, hyperlipidemia, chronic diastolic heart failure, type 2 DM, stage 4 CKD, CVA, BPH, dementia who presented to the ED with abdominal pain. 1. Acute kidney injury on stage 4 CKD secondary to obstructive uropathy from BPH - BUN, creatinine at baseline - Maintain Gilbert catheter - Continue Flomax, Proscar - Continue to hold Lasix, lisinopril - Plan for cystoscopy and possible TURP today 2. HTN - Lisinopril, Lasix held secondary to ISMA - Continue Coreg 3. Hyperlipidemia - Continue Lipitor 4. Type 2 DM - Continue Levemir, Novolog sliding scale 5. Chronic diastolic heart failure - Stable - Lasix held secondary to ISMA 6. Dementia 7. History of CVA - Continue aspirin, Lipitor 8. Anemia - Likely secondary to CKD
[2019-08-15] MEDS: ASPIRIN COATED 81 MG TABLET.EC PO SCH (10:25)
--- NOTE | 2019-08-15 12:12 | PN ---
Progress Note (short form) - Note Progress Note: HPI: No acute events overnight. Pt refusing labs over the weekend. Discussed with patient why we need labs and is amenable. No SOB, CP, palpitations, abdominal pain, diarrhea/constipation, N/V. Vital Signs Temperature 97.9 F 08/15/19 09:19 Pulse Rate 61 08/15/19 09:19 Respiratory Rate 18 08/15/19 09:19 Blood Pressure 136/72 08/15/19 09:19 O2 Sat by Pulse Oximetry (%) 97 08/14/19 21:00 PE: Gen: NAD, awake, alert, oriented to person HEENT: NC/AT< STU, sclera anicteric, MMM Neck: No JVD Chest: CTA b/l without wheezes or rales CARD: RRR no murmurs ABD: Soft, Nt/ND, normoactive BS, no guarding, no hepatomegaly MSK: No CVA tenderness EXT: No edema appreciated, strong pulses b/l CBC, BMP 08/15/19 08:20 08/15/19 06:00 Active Medications Aspirin (Ecotrin -) 81 mg PO DAILY [facility] Last Admin: 08/15/19 10:25 Dose: Not Given Atorvastatin Calcium (Lipitor -) 80 mg PO HS [facility] Last Admin: 08/14/19 21:49 Dose: 80 mg Carvedilol (Coreg -) 25 mg PO BID [facility] Last Admin: 08/15/19 09:06 Dose: 25 mg Finasteride (Proscar -) 5 mg PO DAILY [facility] Last Admin: 08/15/19 09:06 Dose: 5 mg Ceftriaxone Sodium 1 gm/ (Dextrose) 50 mls @ 200 mls/hr IVPB DAILY [facility]; Protocol Last Admin: 08/15/19 09:06 Dose: 200 mls/hr Insulin Aspart (Novolog Vial Sliding Scale -) 1 vial SQ ACHS [facility]; Protocol Last Admin: 08/15/19 11:50 Dose: Not Given Insulin Detemir (Levemir Vial) 36 units SQ AM [facility] Last Admin: 08/15/19 07:00 Dose: 36 units Senna (Senna -) 2 tab PO HS [facility] Last Admin: 08/14/19 21:49 Dose: 2 tab Tamsulosin HCl (Flomax -) 0.4 mg PO Q12H [facility] Last Admin: 08/15/19 09:06 Dose: 0.4 mg Microbiology 08/11/19 15:16 Urine - Urine Clean Catch Urine Culture - Final NO GROWTH OBTAINED ASSESSMENT/PLAN: Acute on Chronic renal injury 2/2 to obstructive BPH Vascular dementia History of CVA Type 2 DM HTN HLD --Pt for cystoscopy today with possible TURP by urology --PT/INR ordered for AM labs --Cr downtrending with continued riley use --ACEi on hold due to renal failure --Continue Rocephin qdaily for procedure ppx --Continue rest of medications as below ASA 81mg qdaily Lipitor 80mg HS Coreg 25mg BID Proscar 5mg qdaily Tamsulosin 0.4mg q12h Senna 2 tab HS --Glycemic control with Levemir 36U and ISS FEN: Fluids: None; PO Electrolyte abnormalities: None; Monitor K in setting of renal failure Nutrition: NPO for procedure; can resume renal diet afterwards PPX: DVT - Holding Heparin for procedure Dispo: M/S monitoring Case discussed with Dr. Robe Cruz, DO - IM PGY-3
--- NOTE | 2019-08-15 13:01 | PN ---
Progress Note, Physician History of Present Illness: Pt seen and examined at bedside. He is awake and appears comfortable. He denies shortness of breath. - Current Medication List Current Medications: Active Medications Aspirin (Ecotrin -) 81 mg PO DAILY [facility] Last Admin: 08/15/19 10:25 Dose: Not Given Atorvastatin Calcium (Lipitor -) 80 mg PO HS [facility] Last Admin: 08/14/19 21:49 Dose: 80 mg Carvedilol (Coreg -) 25 mg PO BID [facility] Last Admin: 08/15/19 09:06 Dose: 25 mg Finasteride (Proscar -) 5 mg PO DAILY [facility] Last Admin: 08/15/19 09:06 Dose: 5 mg Ceftriaxone Sodium 1 gm/ (Dextrose) 50 mls @ 200 mls/hr IVPB DAILY [facility]; Protocol Last Admin: 08/15/19 09:06 Dose: 200 mls/hr Insulin Aspart (Novolog Vial Sliding Scale -) 1 vial SQ ACHS [facility]; Protocol Last Admin: 08/15/19 11:50 Dose: Not Given Insulin Detemir (Levemir Vial) 36 units SQ AM [facility] Last Admin: 08/15/19 07:00 Dose: 36 units Senna (Senna -) 2 tab PO HS [facility] Last Admin: 08/14/19 21:49 Dose: 2 tab Tamsulosin HCl (Flomax -) 0.4 mg PO Q12H [facility] Last Admin: 08/15/19 09:06 Dose: 0.4 mg - Objective Vital Signs: Vital Signs Temperature 97.9 F 08/15/19 09:19 Pulse Rate 61 08/15/19 09:19 Respiratory Rate 18 08/15/19 09:19 Blood Pressure 136/72 08/15/19 09:19 O2 Sat by Pulse Oximetry (%) 97 08/14/19 21:00 Constitutional: Yes: Calm Eyes: Yes: Conjunctiva Clear HENT: Yes: Atraumatic Neck: Yes: Supple Cardiovascular: Yes: S1, S2 Respiratory: Yes: CTA Bilaterally Gastrointestinal: Yes: Normal Bowel Sounds, Soft Genitourinary: Yes: WNL Musculoskeletal: Yes: WNL Edema: No Neurological: Yes: Oriented Labs: CBC, BMP 08/15/19 08:20 08/15/19 06:00 INR, PTT INR 1.08 (0.83-1.09) 08/15/19 08:20 Assessment/Plan Current Medications Generic Name Dose Route Start Last Admin Trade Name Justine PRN Reason Stop Dose Admin Aspirin 81 mg 08/12/19 10:00 08/15/19 10:25 Ecotrin - PO Not Given DAILY [facility] Atorvastatin Calcium 80 mg 08/11/19 22:00 08/14/19 21:49 Lipitor - PO 80 mg HS [facility] Administration Carvedilol 25 mg 08/11/19 22:00 08/15/19 09:06 Coreg - PO 25 mg BID [facility] Administration Finasteride 5 mg 08/11/19 18:00 08/15/19 09:06 Proscar - PO 5 mg DAILY [facility] Administration Ceftriaxone Sodium 1 gm/ 50 mls @ 200 mls/hr 08/12/19 12:00 08/15/19 09:06 Dextrose IVPB 200 mls/hr DAILY [facility] Administration Protocol Insulin Aspart 1 vial 08/11/19 22:00 08/15/19 11:50 Novolog Vial Sliding Scale - SQ Not Given ACHS [facility] Protocol Insulin Detemir 36 units 08/12/19 07:00 08/15/19 07:00 Levemir Vial SQ 36 units AM [facility] Administration Senna 2 tab 08/11/19 22:00 08/14/19 21:49 Senna - PO 2 tab HS [facility] Administration Tamsulosin HCl 0.4 mg 08/11/19 20:30 08/15/19 09:06 Flomax - PO 0.4 mg Q12H [facility] Administration Impression 1. ISMA 2. CKD 3. bph 4. nsaid use 5. htn 6. dementia 7. 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
--- NOTE | 2019-08-15 17:07 | PN ---
Progress Note (short form) - Note Progress Note: UROLOGY NOTE 78 Y/O Male patient with history of DM. HT, CKD, CHF, HLD, Dementia and AUR on riley catheter. O/E soft lax abd on 16 F riley catheter. WBC 6.1 HB 10.1 BUN 47 S,Creat 2.4 Plan: NPO for tomorrow TUVP.
[2019-08-15] MEDS ORDERED: INSULIN (NOVOLOG) ASPART 100 UNITS/ML 10ML VIAL ONE (21:33)
[2019-08-15] MEDS: ATORVASTATIN CA 80 MG TABLET (FP) PO SCH (22:08)
[2019-08-15] MEDS: SENNOSIDES 8.6MG TABLET (FP) PO SCH (22:09)
[2019-08-16] MEDS ORDERED: INSULIN (NOVOLOG) ASPART 100 UNITS/ML 10ML VIAL ONE ×2 (05:02→19:33)
[2019-08-16] MEDS: INSULIN (LEVEMIR) 100 UNITS/ML UNITS SQ SCH (06:42)
[2019-08-16] MEDS: INSULIN SLIDING SCALE (NOVOLOG) 1 VIAL SQ SCH ×4 (06:56→21:22)
--- NOTE | 2019-08-16 08:04 | PN ---
Progress Note (short form) - Note Progress Note: HPI: No acute events overnight. No SOB, CP, palpitations, abdominal pain, diarrhea/constipation, N/V. Vital Signs Temperature 97.7 F 08/16/19 09:00 Pulse Rate 96 H 08/16/19 09:00 Respiratory Rate 20 08/16/19 09:00 Blood Pressure 143/75 08/16/19 09:00 O2 Sat by Pulse Oximetry (%) 95 08/15/19 21:00 PE: Gen: NAD, awake, alert, oriented to person HEENT: NC/AT< STU, sclera anicteric, MMM Neck: No JVD Chest: CTA b/l without wheezes or rales CARD: RRR no murmurs ABD: Soft, Nt/ND, normoactive BS, no guarding, no hepatomegaly MSK: No CVA tenderness EXT: No edema appreciated, strong pulses b/l CBC, BMP 08/15/19 08:20 08/16/19 07:00 Active Medications Aspirin (Ecotrin -) 81 mg PO DAILY [facility] Last Admin: 08/15/19 10:25 Dose: Not Given Atorvastatin Calcium (Lipitor -) 80 mg PO HS [facility] Last Admin: 08/15/19 22:08 Dose: 80 mg Carvedilol (Coreg -) 25 mg PO BID [facility] Last Admin: 08/16/19 09:00 Dose: 25 mg Finasteride (Proscar -) 5 mg PO DAILY [facility] Last Admin: 08/15/19 09:06 Dose: 5 mg Ceftriaxone Sodium 1 gm/ (Dextrose) 50 mls @ 200 mls/hr IVPB DAILY [facility]; Protocol Last Admin: 08/16/19 09:00 Dose: 200 mls/hr Insulin Aspart (Novolog Vial Sliding Scale -) 1 vial SQ ACHS [facility]; Protocol Last Admin: 08/16/19 06:56 Dose: Not Given Insulin Detemir (Levemir Vial) 36 units SQ AM [facility] Last Admin: 08/16/19 06:42 Dose: Not Given Senna (Senna -) 2 tab PO HS [facility] Last Admin: 08/15/19 22:09 Dose: 2 tab Tamsulosin HCl (Flomax -) 0.4 mg PO Q12H [facility] Last Admin: 08/16/19 08:55 Dose: Not Given Microbiology 08/11/19 15:16 Urine - Urine Clean Catch Urine Culture - Final NO GROWTH OBTAINED ASSESSMENT/PLAN: Acute on Chronic renal injury 2/2 to obstructive BPH Vascular dementia History of CVA Type 2 DM HTN HLD --Pt for cystoscopy today with possible TURP by urology --See previous note addendum for consent --Cr downtrending with continued riley use --ACEi on hold due to renal failure --Continue Rocephin qdaily for procedure ppx --Continue rest of medications as below ASA 81mg qdaily Lipitor 80mg HS Coreg 25mg BID Proscar 5mg qdaily Tamsulosin 0.4mg q12h Senna 2 tab HS --Glycemic control with Levemir 36U and ISS FEN: Fluids: None; PO Electrolyte abnormalities: None; Monitor K in setting of renal failure Nutrition: NPO for procedure; can resume renal diet afterwards PPX: DVT - Holding Heparin for procedure Dispo: M/S monitoring Case discussed with Dr. Robe Cruz, DO - IM PGY-3
[2019-08-16 08:07] LABS: BLOOD UREA NITROGEN 33.2 mg/dL (7-18); CALCIUM 8.6 mg/dL (8.5-10.1); POTASSIUM 4.3 mmol/L (3.5-5.1)
[2019-08-16] MEDS ORDERED: cefTRIAXone SODIUM 1 GM VIAL ONE (08:50)
[2019-08-16] MEDS ORDERED: DEXTROSE 5%-WATER - 50 ML IVPB ONE (08:50)
[2019-08-16] MEDS: TAMSULOSIN HCL 0.4 MG CAP PO SCH ×2 (08:55→19:45)
[2019-08-16] MEDS: CEFTRIAXONE 1 GM in DEXTROSE 5%-WATER - 50 ML IVPB SCH (09:00)
[2019-08-16] MEDS: CARVEDILOL 25 MG TABLET (FP) PO SCH ×2 (09:00→21:22)
--- NOTE | 2019-08-16 11:43 | PN ---
Teaching Attending Note Name of Resident: Desmond Cruz ATTENDING PHYSICIAN STATEMENT I saw and evaluated the patient. I reviewed the resident's note and discussed the case with the resident. I agree with the resident's findings and plan as documented. SUBJECTIVE: Patient appears comfortable lying in bed. He is confused and has no complaints. OBJECTIVE: Vital Signs Period Temp Pulse Resp BP Sys/[place] Pulse Ox Last 24 Hr 97.6 F-98.8 F 60-96 18-20 124-147/53-75 95-97 HEART: S1S2, RRR LUNGS: Clear ABDOMEN:Soft, non-tender, non-distended, normal BS EXTREMITIES: No edema Laboratory Results - last 24 hr 08/15/19 08/15/19 08/16/19 17:44 21:11 06:50 Sodium Potassium Chloride Carbon Dioxide Anion Gap BUN Creatinine Est GFR (CKD-EPI)AfAm Est GFR (CKD-EPI)NonAf POC Glucometer 135 164 138 Random Glucose Calcium 08/16/19 08/16/19 07:00 10:57 Sodium 143 Potassium 4.3 Chloride 113 H Carbon Dioxide 26 Anion Gap 4 L BUN 33.2 H Creatinine 2.0 H Est GFR (CKD-EPI)AfAm 36.49 Est GFR (CKD-EPI)NonAf 31.48 POC Glucometer 125 Random Glucose 134 H Calcium 8.6 Current Medications Generic Name Dose Route Start Last Admin Trade Name Freq PRN Reason Stop Dose Admin Aspirin 81 mg 08/12/19 10:00 08/15/19 10:25 Ecotrin - PO Not Given DAILY [facility] Atorvastatin Calcium 80 mg 08/11/19 22:00 08/15/19 22:08 Lipitor - PO 80 mg HS [facility] Administration Carvedilol 25 mg 08/11/19 22:00 08/16/19 09:00 Coreg - PO 25 mg BID [facility] Administration Finasteride 5 mg 08/11/19 18:00 08/15/19 09:06 Proscar - PO 5 mg DAILY [facility] Administration Ceftriaxone Sodium 1 gm/ 50 mls @ 200 mls/hr 08/12/19 12:00 08/16/19 09:00 Dextrose IVPB 200 mls/hr DAILY [facility] Administration Protocol Insulin Aspart 1 vial 08/11/19 22:00 08/16/19 10:58 Novolog Vial Sliding Scale - SQ Not Given ACHS [facility] Protocol Insulin Detemir 36 units 08/12/19 07:00 08/16/19 06:42 Levemir Vial SQ Not Given AM [facility] Senna 2 tab 08/11/19 22:00 08/15/19 22:09 Senna - PO 2 tab HS [facility] Administration Tamsulosin HCl 0.4 mg 08/11/19 20:30 08/16/19 08:55 Flomax - PO Not Given Q12H [facility] ASSESSMENT AND PLAN: This is a 78 year old man with a history of HTN, hyperlipidemia, chronic diastolic heart failure, type 2 DM, stage 4 CKD, CVA, BPH, dementia who presented to the ED with abdominal pain. 1. Acute kidney injury on stage 4 CKD secondary to obstructive uropathy from BPH - BUN, creatinine at baseline - Maintain Gilbert catheter - Continue Flomax, Proscar - Continue to hold Lasix, lisinopril - Plan for cystoscopy and TUVP today 2. HTN - Lisinopril, Lasix held secondary to ISMA - Continue Coreg 3. Hyperlipidemia - Continue Lipitor 4. Type 2 DM - Continue Levemir, Novolog sliding scale 5. Chronic diastolic heart failure - Stable - Lasix held secondary to ISMA 6. Dementia 7. History of CVA - Continue aspirin, Lipitor 8. Anemia - Likely secondary to CKD - Hemoglobin is stable
[2019-08-16] MEDS ORDERED: ceFAZolin SODIUM 1 GM VIAL IVPB ONE (14:43)
--- NOTE | 2019-08-16 16:03 | OP ---
Operative Note - Note: Operative Date: 08/16/19 Pre-Operative Diagnosis: Urinary retention Operation: Cysto TUVP Findings: Residual Prostatic hypertrophy Post-Operative Diagnosis: Same as Pre-op Surgeon: Murali Ward Anesthesia: General Operative Report Dictated: Yes
[2019-08-16] MEDS ORDERED: ACETAMINOPHEN 325 MG TABLET (FP) PO PRN (16:19)
[2019-08-16] MEDS ORDERED: oxyCODONE HCL 5 MG TABLET PO PRN (16:19)
--- NOTE | 2019-08-16 16:34 | OP ---
DATE OF OPERATION: 08/16/2019 SURGEON: Murali Ward MD ANESTHESIA: General. PREOPERATIVE DIAGNOSIS: Urinary retention and bladder neck contracture. POSTOPERATIVE DIAGNOSIS: Urinary retention and bladder neck contracture. PROCEDURE: Cystoscopy and transurethral vaporization of the prostate. FINDINGS: Urethra were normal. Bladder neck obstructed with some prostatic tissue. Bladder shows marked inflammatory changes. No mass or tumor noted. DESCRIPTION OF PROCEDURE: Patient in lithotomy position under anesthesia was prepped and draped in the usual manner. Using 26 resectoscope, cystoscopy performed and findings were noted above. Then using vaporization, the bladder neck and prostatic tissue were vaporized. Bladder neck was found to be open. Verumontanum on the surrounding area were left alone. All the bleeding points were electrocoagulated. Patient tolerated the procedure well and left the operating room under satisfactory condition. MURALI WARD M.D. [id number]
--- NOTE | 2019-08-16 16:47 | PN ---
Progress Note, Physician History of Present Illness: Pt seen and examined at bedside. He just had surgery and is in recovery room. He denies shortness of breath. - Current Medication List Current Medications: Active Medications Acetaminophen (Tylenol -) 325 mg PO Q6H PRN PRN Reason: PAIN LEVEL 5-10 Stop: 08/17/19 16:18 Aspirin (Ecotrin -) 81 mg PO DAILY [facility] Last Admin: 08/15/19 10:25 Dose: Not Given Atorvastatin Calcium (Lipitor -) 80 mg PO HS [facility] Last Admin: 08/15/19 22:08 Dose: 80 mg Carvedilol (Coreg -) 25 mg PO BID [facility] Last Admin: 08/16/19 09:00 Dose: 25 mg Finasteride (Proscar -) 5 mg PO DAILY [facility] Last Admin: 08/15/19 09:06 Dose: 5 mg Ceftriaxone Sodium 1 gm/ (Dextrose) 50 mls @ 200 mls/hr IVPB DAILY [facility]; Protocol Last Admin: 08/16/19 09:00 Dose: 200 mls/hr Insulin Aspart (Novolog Vial Sliding Scale -) 1 vial SQ ACHS [facility]; Protocol Last Admin: 08/16/19 10:58 Dose: Not Given Insulin Detemir (Levemir Vial) 36 units SQ AM [facility] Last Admin: 08/16/19 06:42 Dose: Not Given Oxycodone HCl (Roxicodone -) 5 mg PO Q6H PRN PRN Reason: PAIN LEVEL 5-10 Stop: 08/17/19 16:18 Senna (Senna -) 2 tab PO HS [facility] Last Admin: 08/15/19 22:09 Dose: 2 tab Tamsulosin HCl (Flomax -) 0.4 mg PO Q12H [facility] Last Admin: 08/16/19 08:55 Dose: Not Given - Objective Vital Signs: Vital Signs Temperature 98.1 F 08/16/19 16:03 Pulse Rate 65 08/16/19 16:30 Respiratory Rate 16 08/16/19 16:30 Blood Pressure 175/76 H 08/16/19 16:30 O2 Sat by Pulse Oximetry (%) 96 08/16/19 16:30 Constitutional: Yes: Calm Eyes: Yes: Conjunctiva Clear HENT: Yes: Atraumatic Neck: Yes: Supple Cardiovascular: Yes: S1, S2 Respiratory: Yes: CTA Bilaterally Gastrointestinal: Yes: Soft Genitourinary: Yes: Gilbert Present. No: Hematuria Musculoskeletal: Yes: WNL Edema: No Integumentary: Yes: WNL Neurological: Yes: Oriented Psychiatric: Yes: Oriented Labs: CBC, BMP 08/15/19 08:20 08/16/19 07:00 INR, PTT INR 1.08 (0.83-1.09) 08/15/19 08:20 Assessment/Plan Current Medications Generic Name Dose Route Start Last Admin Trade Name Freq PRN Reason Stop Dose Admin Acetaminophen 325 mg 08/16/19 16:19 Tylenol - PO 08/17/19 16:18 Q6H PRN PAIN LEVEL 5-10 Aspirin 81 mg 08/12/19 10:00 08/15/19 10:25 Ecotrin - PO Not Given DAILY [facility] Atorvastatin Calcium 80 mg 08/11/19 22:00 08/15/19 22:08 Lipitor - PO 80 mg HS [facility] Administration Carvedilol 25 mg 08/11/19 22:00 08/16/19 09:00 Coreg - PO 25 mg BID [facility] Administration Finasteride 5 mg 08/11/19 18:00 08/15/19 09:06 Proscar - PO 5 mg DAILY [facility] Administration Ceftriaxone Sodium 1 gm/ 50 mls @ 200 mls/hr 08/12/19 12:00 08/16/19 09:00 Dextrose IVPB 200 mls/hr DAILY [facility] Administration Protocol Insulin Aspart 1 vial 08/11/19 22:00 08/16/19 10:58 Novolog Vial Sliding Scale - SQ Not Given ACHS [facility] Protocol Insulin Detemir 36 units 08/12/19 07:00 08/16/19 06:42 Levemir Vial SQ Not Given AM [facility] Lisinopril 10 mg 08/17/19 10:00 Prinivil PO DAILY [facility] Oxycodone HCl 5 mg 08/16/19 16:19 Roxicodone - PO 08/17/19 16:18 Q6H PRN PAIN LEVEL 5-10 Senna 2 tab 08/11/19 22:00 08/15/19 22:09 Senna - PO 2 tab HS [facility] Administration Tamsulosin HCl 0.4 mg 08/11/19 20:30 08/16/19 08:55 Flomax - PO Not Given Q12H [facility] Impression 1. ISMA 2. CKD 3. bph 4. nsaid use 5. htn 6. dementia 7. 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
[2019-08-16] MEDS: ASPIRIN COATED 81 MG TABLET.EC PO SCH (17:39)
[2019-08-16] MEDS: FINASTERIDE 5 MG TABLET (FP) PO SCH (17:39)
[2019-08-16] MEDS: ATORVASTATIN CA 80 MG TABLET (FP) PO SCH (21:21)
[2019-08-16] MEDS: SENNOSIDES 8.6MG TABLET (FP) PO SCH (21:21)
[2019-08-16] MEDS: LATANOPROST 0.005% OPHTH SOLN 2.5ML BOTTLE OU SCH (21:22)
[2019-08-16] MEDS: AMMONIUM LACTATE 12% LOTION 225 GM BOTTLE TP SCH (21:22)
[2019-08-16] MEDS ORDERED: ALBUTEROL SO4 8 GM HFA INHALER IH PRN (22:00)
[2019-08-17] MEDS: INSULIN (LEVEMIR) 100 UNITS/ML UNITS SQ SCH (06:04)
[2019-08-17] MEDS: INSULIN SLIDING SCALE (NOVOLOG) 1 VIAL SQ SCH ×4 (06:10→21:38)
[2019-08-17 08:08] LABS: BASO % 0.3 % (0-2.0); HEMATOCRIT 30.7 % (35.4-49); HEMOGLOBIN 10.3 GM/dL (11.7-16.9); LYMPH % 9.2 % (8-40); MCH 30.1 pg (25.7-33.7); MCHC 33.6 g/dl (32.0-35.9); MEAN CELL VOLUME 89.7 fl (80-96); MEAN PLT VOLUME 7.3 fl (7.5-11.1); MONO % 5.1 % (3.8-10.2); NEUT % 85.4 % (42.8-82.8); PLATELET COUNT 364 K/MM3 (134-434); RBC 3.42 M/mm3 (4.00-5.60); RDW 14.9 % (11.9-15.9)
[2019-08-17] MEDS: TAMSULOSIN HCL 0.4 MG CAP PO SCH ×3 (08:26→19:44)
[2019-08-17 08:51] LABS: ALBUMIN 2.6 g/dl (3.4-5.0); BILIRUBIN,TOTAL 0.2 mg/dL (0.2-1); BLOOD UREA NITROGEN 34.8 mg/dL (7-18); CALCIUM 8.2 mg/dL (8.5-10.1); CREATININE 2.1 mg/dL (0.55-1.3); POTASSIUM 4.4 mmol/L (3.5-5.1); TOT PROT 6.6 g/dl (6.4-8.2)
--- NOTE | 2019-08-17 09:06 | PN ---
Progress Note (short form) - Note Progress Note: Post Op Day1 Pt is doing well. Alert and awake. Urine clear. Plan: will discontinue riley tomorrow. May have difficulty in urinating, as he does have neurogenic component. May need urecholine. Will follow as necessary.
--- NOTE | 2019-08-17 09:12 | PN ---
Progress Note (short form) - Note Progress Note: 78 M s/p TURP under GA. No c/o. Vital Signs Temp 99.1 F 08/17/19 08:15 Pulse 70 08/17/19 08:15 Resp 18 08/17/19 08:15 BP 144/69 08/17/19 08:15 Pulse Ox 97 08/16/19 21:00 Intake & Output 08/16/19 08/16/19 08/17/19 11:59 23:59 11:59 Intake Total 0 1745 Output Total 400 650 Balance -400 1095 Intake: IV 900 IVPB 0 0 Oral 0 845 Output: Urine 400 650 Gilbert 400 350 Other: Voiding Method Indwelling Catheter Indwelling Catheter Bowel Movement No Yes Awake, alert, NAD - No apparent anesthesia complications.
[2019-08-17] MEDS ORDERED: cefTRIAXone SODIUM 1 GM VIAL ONE (09:29)
[2019-08-17] MEDS ORDERED: DEXTROSE 5%-WATER - 50 ML IVPB ONE (09:29)
[2019-08-17] MEDS ORDERED: PT OWN MED DRAWER 7, Y5N ONE (09:31)
[2019-08-17] MEDS: CARVEDILOL 25 MG TABLET (FP) PO SCH ×2 (09:40→21:38)
[2019-08-17] MEDS: ASPIRIN COATED 81 MG TABLET.EC PO SCH (09:42)
[2019-08-17] MEDS: AMMONIUM LACTATE 12% LOTION 225 GM BOTTLE TP SCH ×2 (09:42→21:38)
[2019-08-17] MEDS: FUROSEMIDE 40 MG TABLET (FP) PO SCH (09:44)
[2019-08-17] MEDS: FINASTERIDE 5 MG TABLET (FP) PO SCH (09:45)
[2019-08-17] MEDS ORDERED: LISINOPRIL 10 MG TABLET (FP) PO SCH ×2 (10:00)
[2019-08-17] MEDS ORDERED: CEFTRIAXONE 1 GM in DEXTROSE 5%-WATER - 50 ML IVPB SCH (10:00)
[2019-08-17] MEDS ORDERED: LISINOPRIL 5 MG TABLET (FP) PO SCH (13:18)
--- NOTE | 2019-08-17 13:20 | PN ---
Progress Note, Physician History of Present Illness: Pt seen and examined at bedside. He is awake and alert. He denies shortness of breath. - Current Medication List Current Medications: Active Medications Acetaminophen (Tylenol -) 325 mg PO Q6H PRN PRN Reason: PAIN LEVEL 5-10 Stop: 08/17/19 16:18 Albuterol Sulfate (Ventolin Hfa Inhaler -) 1 puff IH BID PRN PRN Reason: SHORTNESS OF BREATH Aspirin (Ecotrin -) 81 mg PO DAILY [facility] Last Admin: 08/17/19 09:42 Dose: 81 mg Atorvastatin Calcium (Lipitor -) 80 mg PO HS [facility] Last Admin: 08/16/19 21:21 Dose: 80 mg Carvedilol (Coreg -) 25 mg PO BID [facility] Last Admin: 08/17/19 09:40 Dose: 25 mg Finasteride (Proscar -) 5 mg PO DAILY [facility] Last Admin: 08/17/19 09:45 Dose: 5 mg Furosemide (Lasix -) 100 mg PO DAILY [facility] Last Admin: 08/17/19 09:44 Dose: 100 mg Ceftriaxone Sodium 1 gm/ (Dextrose) 50 mls @ 200 mls/hr IVPB DAILY [facility]; Protocol Last Admin: 08/17/19 09:43 Dose: 200 mls/hr Insulin Aspart (Novolog Vial Sliding Scale -) 1 vial SQ ACHS [facility]; Protocol Last Admin: 08/17/19 10:10 Dose: 6 units Insulin Detemir (Levemir Vial) 36 units SQ AM [facility] Last Admin: 08/17/19 06:04 Dose: 36 units Lactic Acid (Lac-Hydrin 12) 1 applic TP BID [facility] Last Admin: 08/17/19 09:42 Dose: 1 applic Latanoprost (Xalatan 0.005% Eye Drops -) 1 drop OU HS [facility] Last Admin: 08/16/19 21:22 Dose: 1 drop Lisinopril (Prinivil) 10 mg PO DAILY [facility] Last Admin: 08/17/19 09:44 Dose: 10 mg Lisinopril (Prinivil) 10 mg PO DAILY [facility] Oxycodone HCl (Roxicodone -) 5 mg PO Q6H PRN PRN Reason: PAIN LEVEL 5-10 Stop: 08/17/19 16:18 Senna (Senna -) 2 tab PO HS [facility] Last Admin: 08/16/19 21:21 Dose: 2 tab Tamsulosin HCl (Flomax -) 0.4 mg PO Q12H [facility] Last Admin: 08/17/19 08:26 Dose: 0.4 mg - Objective Vital Signs: Vital Signs Temperature 97.9 F 08/17/19 11:55 Pulse Rate 71 08/17/19 11:55 Respiratory Rate 20 08/17/19 11:55 Blood Pressure 116/59 L 08/17/19 11:55 O2 Sat by Pulse Oximetry (%) 97 08/16/19 21:00 Constitutional: Yes: Calm Eyes: Yes: Conjunctiva Clear Cardiovascular: Yes: S1, S2 Respiratory: Yes: CTA Bilaterally Gastrointestinal: Yes: Normal Bowel Sounds, Soft Genitourinary: Yes: Gilbert Present Musculoskeletal: Yes: WNL Edema: No Integumentary: Yes: WNL Neurological: Yes: Oriented Psychiatric: Yes: Oriented Labs: CBC, BMP 08/17/19 07:10 08/17/19 07:00 INR, PTT INR 1.08 (0.83-1.09) 08/15/19 08:20 Problem List - Problems (1) CKD (chronic kidney disease) Code(s): N18.9 - CHRONIC KIDNEY DISEASE, UNSPECIFIED Assessment/Plan Current Medications Generic Name Dose Route Start Last Admin Trade Name Freq PRN Reason Stop Dose Admin Acetaminophen 325 mg 08/16/19 16:19 Tylenol - PO 08/17/19 16:18 Q6H PRN PAIN LEVEL 5-10 Albuterol Sulfate 1 puff 08/16/19 22:00 Ventolin Hfa Inhaler - IH BID PRN SHORTNESS OF BREATH Aspirin 81 mg 08/17/19 10:00 08/17/19 09:42 Ecotrin - PO 81 mg DAILY [facility] Administration Atorvastatin Calcium 80 mg 08/16/19 22:00 08/16/19 21:21 Lipitor - PO 80 mg HS [facility] Administration Carvedilol 25 mg 08/16/19 22:00 08/17/19 09:40 Coreg - PO 25 mg BID [facility] Administration Finasteride 5 mg 08/17/19 10:00 08/17/19 09:45 Proscar - PO 5 mg DAILY [facility] Administration Furosemide 100 mg 08/17/19 10:00 08/17/19 09:44 Lasix - PO 100 mg DAILY [facility] Administration Ceftriaxone Sodium 1 gm/ 50 mls @ 200 mls/hr 08/17/19 10:00 08/17/19 09:43 Dextrose IVPB 200 mls/hr DAILY [facility] Administration Protocol Insulin Aspart 1 vial 08/16/19 22:00 08/17/19 10:10 Novolog Vial Sliding Scale - SQ 6 units ACHS [facility] Administration Protocol Insulin Detemir 36 units 08/17/19 07:00 08/17/19 06:04 Levemir Vial SQ 36 units AM [facility] Administration Lactic Acid 1 applic 08/16/19 22:00 08/17/19 09:42 Lac-Hydrin 12 TP 1 applic BID [facility] Administration Latanoprost 1 drop 08/16/19 22:00 08/16/19 21:22 Xalatan 0.005% Eye Drops - OU 1 drop HS [facility] Administration Lisinopril 5 mg 08/17/19 13:18 Prinivil PO DAILY [facility] Oxycodone HCl 5 mg 08/16/19 16:19 Roxicodone - PO 08/17/19 16:18 Q6H PRN PAIN LEVEL 5-10 Senna 2 tab 08/16/19 22:00 08/16/19 21:21 Senna - PO 2 tab HS [facility] Administration Tamsulosin HCl 0.4 mg 08/16/19 19:30 08/17/19 08:26 Flomax - PO 0.4 mg Q12H [facility] Administration Impression 1. ISMA 2. CKD 3. bph 4. nsaid use 5. htn 6. dementia 7. dm Plan - decrease lisinopril to 5 mg - monitor bp - s/p TUVP - avoid nsaids
--- NOTE | 2019-08-17 13:20 | PN ---
Progress Note (short form) - Note Progress Note: HPI: PT having diarrhea today. No other complaints. Vital Signs Temperature 97.4 F L 08/17/19 14:00 Pulse Rate 71 08/17/19 14:00 Respiratory Rate 20 08/17/19 14:00 Blood Pressure 141/71 08/17/19 14:00 O2 Sat by Pulse Oximetry (%) 97 08/16/19 21:00 PE: Gen: NAD, awake, alert, oriented to person HEENT: NC/AT< STU, sclera anicteric, MMM Neck: No JVD Chest: CTA b/l without wheezes or rales CARD: RRR no murmurs ABD: Soft, Nt/ND, normoactive BS, no guarding, no hepatomegaly MSK: No CVA tenderness EXT: No edema appreciated, strong pulses b/l CBC, BMP 08/17/19 07:10 08/17/19 07:00 Active Medications Albuterol Sulfate (Ventolin Hfa Inhaler -) 1 puff IH BID PRN PRN Reason: SHORTNESS OF BREATH Aspirin (Ecotrin -) 81 mg PO DAILY [facility] Last Admin: 08/17/19 09:42 Dose: 81 mg Atorvastatin Calcium (Lipitor -) 80 mg PO HS [facility] Last Admin: 08/16/19 21:21 Dose: 80 mg Carvedilol (Coreg -) 25 mg PO BID [facility] Last Admin: 08/17/19 09:40 Dose: 25 mg Finasteride (Proscar -) 5 mg PO DAILY [facility] Last Admin: 08/17/19 09:45 Dose: 5 mg Furosemide (Lasix -) 100 mg PO DAILY [facility] Last Admin: 08/17/19 09:44 Dose: 100 mg Insulin Aspart (Novolog Vial Sliding Scale -) 1 vial SQ [facility]; Protocol Last Admin: 08/17/19 17:16 Dose: Not Given Insulin Detemir (Levemir Vial) 36 units SQ AM [facility] Last Admin: 08/17/19 06:04 Dose: 36 units Lactic Acid (Lac-Hydrin 12) 1 applic TP BID [facility] Last Admin: 08/17/19 09:42 Dose: 1 applic Latanoprost (Xalatan 0.005% Eye Drops -) 1 drop OU HS [facility] Last Admin: 08/16/19 21:22 Dose: 1 drop Lisinopril (Prinivil) 5 mg PO DAILY [facility] Senna (Senna -) 2 tab PO HS [facility] Last Admin: 08/16/19 21:21 Dose: 2 tab Tamsulosin HCl (Flomax -) 0.4 mg PO Q12H [facility] Last Admin: 08/17/19 08:26 Dose: 0.4 mg Microbiology 08/11/19 15:16 Urine - Urine Clean Catch Urine Culture - Final NO GROWTH OBTAINED ASSESSMENT/PLAN: Acute on Chronic renal injury 2/2 to obstructive BPH Vascular dementia History of CVA Type 2 DM HTN HLD --POD 1 TURP --Cr increased slightly --Stop prophylactic antibiotics --D/c riley tomorrow; possibility of benefit from bethanechol. --C. diff if pt has diarrhea episode again --Lisinopril 5mg qdaily for tomorrow --Continue rest of medications as below ASA 81mg qdaily Lipitor 80mg HS Coreg 25mg BID Proscar 5mg qdaily Tamsulosin 0.4mg q12h Senna 2 tab HS --Glycemic control with Levemir 36U and ISS FEN: Fluids: None; PO Electrolyte abnormalities: None Nutrition: NPO for procedure; can resume renal diet afterwards PPX: DVT -SCDs Dispo: M/S monitoring Case discussed with Dr. Robe Cruz, DO - IM PGY-3
--- NOTE | 2019-08-17 13:59 | PN ---
Teaching Attending Note Name of Resident: Desmond Cruz ATTENDING PHYSICIAN STATEMENT I saw and evaluated the patient. I reviewed the resident's note and discussed the case with the resident. I agree with the resident's findings and plan as documented. SUBJECTIVE: Patient has no complaints. OBJECTIVE: Vital Signs Period Temp Pulse Resp BP Sys/Escoto Pulse Ox Last 24 Hr 97.7 F-99.1 F 61-73 14-20 116-177/52-89 96-98 HEART: S1S2, RRR LUNGS: Clear ABDOMEN:Soft, non-tender, non-distended, normal BS EXTREMITIES: No edema Laboratory Results - last 24 hr 08/16/19 08/16/19 08/17/19 16:56 21:20 06:08 WBC RBC Hgb Hct MCV MCH MCHC RDW Plt Count MPV Absolute Neuts (auto) Neutrophils % Lymphocytes % Monocytes % Eosinophils % Basophils % Nucleated RBC % Sodium Potassium Chloride Carbon Dioxide Anion Gap BUN Creatinine Est GFR (CKD-EPI)AfAm Est GFR (CKD-EPI)NonAf POC Glucometer 127 221 206 Random Glucose Calcium Magnesium Total Bilirubin AST ALT Alkaline Phosphatase Total Protein Albumin 08/17/19 08/17/19 08/17/19 07:00 07:10 09:25 WBC 10.0 RBC 3.42 L Hgb 10.3 L Hct 30.7 L MCV 89.7 MCH 30.1 MCHC 33.6 RDW 14.9 Plt Count 364 MPV 7.3 L Absolute Neuts (auto) 8.5 H Neutrophils % 85.4 H D Lymphocytes % 9.2 D Monocytes % 5.1 Eosinophils % 0.0 D Basophils % 0.3 Nucleated RBC % 0 Sodium 141 Potassium 4.4 Chloride 111 H Carbon Dioxide 23 Anion Gap 7 L BUN 34.8 H Creatinine 2.1 H Est GFR (CKD-EPI)AfAm 34.40 Est GFR (CKD-EPI)NonAf 29.68 POC Glucometer 259 Random Glucose 226 H Calcium 8.2 L Magnesium 2.0 Total Bilirubin 0.2 AST 18 ALT 26 Alkaline Phosphatase 73 Total Protein 6.6 Albumin 2.6 L Current Medications Generic Name Dose Route Start Last Admin Trade Name Freq PRN Reason Stop Dose Admin Acetaminophen 325 mg 08/16/19 16:19 Tylenol - PO 08/17/19 16:18 Q6H PRN PAIN LEVEL 5-10 Albuterol Sulfate 1 puff 08/16/19 22:00 Ventolin Hfa Inhaler - IH BID PRN SHORTNESS OF BREATH Aspirin 81 mg 08/17/19 10:00 08/17/19 09:42 Ecotrin - PO 81 mg DAILY [facility] Administration Atorvastatin Calcium 80 mg 08/16/19 22:00 08/16/19 21:21 Lipitor - PO 80 mg HS [facility] Administration Carvedilol 25 mg 08/16/19 22:00 08/17/19 09:40 Coreg - PO 25 mg BID [facility] Administration Finasteride 5 mg 08/17/19 10:00 08/17/19 09:45 Proscar - PO 5 mg DAILY [facility] Administration Furosemide 100 mg 08/17/19 10:00 08/17/19 09:44 Lasix - PO 100 mg DAILY [facility] Administration Ceftriaxone Sodium 1 gm/ 50 mls @ 200 mls/hr 08/17/19 10:00 08/17/19 09:43 Dextrose IVPB 200 mls/hr DAILY [facility] Administration Protocol Insulin Aspart 1 vial 08/16/19 22:00 08/17/19 10:10 Novolog Vial Sliding Scale - SQ 6 units ACHS [facility] Administration Protocol Insulin Detemir 36 units 08/17/19 07:00 08/17/19 06:04 Levemir Vial SQ 36 units AM [facility] Administration Lactic Acid 1 applic 08/16/19 22:00 08/17/19 09:42 Lac-Hydrin 12 TP 1 applic BID [facility] Administration Latanoprost 1 drop 08/16/19 22:00 08/16/19 21:22 Xalatan 0.005% Eye Drops - OU 1 drop HS [facility] Administration Lisinopril 5 mg 08/18/19 10:00 Prinivil PO DAILY [facility] Oxycodone HCl 5 mg 08/16/19 16:19 Roxicodone - PO 08/17/19 16:18 Q6H PRN PAIN LEVEL 5-10 Senna 2 tab 08/16/19 22:00 08/16/19 21:21 Senna - PO 2 tab HS [facility] Administration Tamsulosin HCl 0.4 mg 08/16/19 19:30 08/17/19 08:26 Flomax - PO 0.4 mg Q12H [facility] Administration ASSESSMENT AND PLAN: This is a 78 year old man with a history of HTN, hyperlipidemia, chronic diastolic heart failure, type 2 DM, stage 4 CKD, CVA, BPH, dementia who presented to the ED with abdominal pain. 1. Acute kidney injury on stage 4 CKD secondary to obstructive uropathy from BPH - BUN, creatinine slightly increased today - Maintain Gilbert catheter - urine is clear yellow - Continue Flomax, Proscar - Lasix, lisinopril restarted - s/p cystoscopy and TUVP 08/16 2. HTN - Continue Coreg, Lisinopril, Lasix 3. Hyperlipidemia - Continue Lipitor 4. Type 2 DM - Continue Levemir, Novolog sliding scale 5. Chronic diastolic heart failure - Stable - Continue Lasix 6. Dementia 7. History of CVA - Continue aspirin, Lipitor 8. Anemia - Likely secondary to CKD - Hemoglobin is stable
[2019-08-17] MEDS ORDERED: LIDOCAINE HCL 5% TOP OINTMENT 50 GM TUBE TP ONE (19:00)
[2019-08-17] MEDS: ATORVASTATIN CA 80 MG TABLET (FP) PO SCH (21:38)
[2019-08-17] MEDS: SENNOSIDES 8.6MG TABLET (FP) PO SCH (21:38)
[2019-08-17] MEDS: LATANOPROST 0.005% OPHTH SOLN 2.5ML BOTTLE OU SCH (21:39)
[2019-08-18] MEDS: TAMSULOSIN HCL 0.4 MG CAP PO SCH (07:04)
[2019-08-18] MEDS: INSULIN (LEVEMIR) 100 UNITS/ML UNITS SQ SCH (07:04)
[2019-08-18] MEDS: INSULIN SLIDING SCALE (NOVOLOG) 1 VIAL SQ SCH ×2 (07:04→12:12)
[2019-08-18 09:16] LABS: HEMATOCRIT 31.3 % (35.4-49); HEMOGLOBIN 10.4 GM/dL (11.7-16.9); MCHC 33.2 g/dl (32.0-35.9); MEAN CELL VOLUME 90.4 fl (80-96); MEAN PLT VOLUME 7.3 fl (7.5-11.1); PLATELET COUNT 357 K/MM3 (134-434); RBC 3.47 M/mm3 (4.00-5.60); RDW 14.8 % (11.9-15.9); WHITE BLOOD COUNT 7.1 K/mm3 (4.0-10.0)
--- NOTE | 2019-08-18 09:18 | PN ---
Teaching Attending Note Name of Resident: Desmond Cruz ATTENDING PHYSICIAN STATEMENT I saw and evaluated the patient. I reviewed the resident's note and discussed the case with the resident. I agree with the resident's findings and plan as documented. SUBJECTIVE: No new complaints OBJECTIVE: Vital Signs Temperature 98.6 F 08/18/19 06:00 Pulse Rate 61 08/18/19 06:00 Respiratory Rate 20 08/18/19 06:00 Blood Pressure 129/56 L 08/18/19 06:00 O2 Sat by Pulse Oximetry (%) 96 08/17/19 21:00 General: Elderly man, comfortable, not in distress HEENT; mucous membranes moist, no anemia, no jaundice, PERRLA, no nystagmus Neck: No JVD, supple, no bruit, thyroid palpably normal, normal carotid pulsations. Chest: Non-tender, clear to auscultation bilaterally. CVS: S1-S2 regular/ no murmur/gallop/rub Abdomen: Non-distended, soft, bowel sounds present. Extremities: No edema., No cough tenderness, pulses present MENTAL TELEPATHIST: AO X3 , no gross motor sensory deficit CBC, BMP 08/18/19 08:10 Active Medications Albuterol Sulfate (Ventolin Hfa Inhaler -) 1 puff IH BID PRN PRN Reason: SHORTNESS OF BREATH Aspirin (Ecotrin -) 81 mg PO DAILY [facility] Last Admin: 08/17/19 09:42 Dose: 81 mg Atorvastatin Calcium (Lipitor -) 80 mg PO HS [facility] Last Admin: 08/17/19 21:38 Dose: Not Given Bethanechol Chloride (Urecholine -) 5 mg PO QID [facility] Carvedilol (Coreg -) 25 mg PO BID [facility] Last Admin: 08/17/19 21:38 Dose: Not Given Finasteride (Proscar -) 5 mg PO DAILY [facility] Last Admin: 08/17/19 09:45 Dose: 5 mg Furosemide (Lasix -) 100 mg PO DAILY [facility] Last Admin: 08/17/19 09:44 Dose: 100 mg Insulin Aspart (Novolog Vial Sliding Scale -) 1 vial SQ ACHS [facility]; Protocol Last Admin: 08/18/19 07:04 Dose: Not Given Insulin Detemir (Levemir Vial) 36 units SQ AM [facility] Last Admin: 08/18/19 07:04 Dose: 36 units Lactic Acid (Lac-Hydrin 12) 1 applic TP BID [facility] Last Admin: 08/17/19 21:38 Dose: Not Given Latanoprost (Xalatan 0.005% Eye Drops -) 1 drop OU HS [facility] Last Admin: 08/17/19 21:39 Dose: Not Given Lisinopril (Prinivil) 5 mg PO DAILY [facility] Tamsulosin HCl (Flomax -) 0.4 mg PO Q12H [facility] Last Admin: 08/18/19 07:04 Dose: Not Given ASSESSMENT AND PLAN: This is a 78 year old man with a history of HTN, hyperlipidemia, chronic diastolic heart failure, type 2 DM, stage 4 CKD, CVA, BPH, dementia who presented to the ED with abdominal pain. Physical examination shows urinary retention patient underwent TURP, postoperative day 3. Problem List - Problems (1) Acute kidney injury superimposed on chronic kidney disease Assessment/Plan: Patient baseline CKD stage IV admitted with worsening kidney function in the setting of obstructive uropathy in the setting of BPH, underwent TURP, patient is voiding clear urine in the bag, will DC Gilbert catheter and follow-up bladder scan, if no residual urine patient can be discharged home as per recommendations continue Flomax and follow-up with in a week. Problems reviewed: Yes Code(s): N17.9 - ACUTE KIDNEY FAILURE, UNSPECIFIED; N18.9 - CHRONIC KIDNEY DISEASE, UNSPECIFIED (2) HTN (hypertension) Assessment/Plan: Well-controlled on current medications Problems reviewed: Yes Code(s): I10 - ESSENTIAL (PRIMARY) HYPERTENSION (3) Diastolic heart failure Assessment/Plan: Compensated continue current management Problems reviewed: Yes Code(s): I50.30 - UNSPECIFIED DIASTOLIC (CONGESTIVE) HEART FAILURE (4) Type 2 diabetes mellitus Assessment/Plan: Diabetic Diet, optimize glycemic control Problems reviewed: Yes Code(s): E11.9 - TYPE 2 DIABETES MELLITUS WITHOUT COMPLICATIONS
[2019-08-18 09:57] LABS: BLOOD UREA NITROGEN 41.7 mg/dL (7-18); CALCIUM 8.4 mg/dL (8.5-10.1); POTASSIUM 4.1 mmol/L (3.5-5.1)
[2019-08-18] MEDS ORDERED: LISINOPRIL 5 MG TABLET (FP) PO SCH (10:00)
[2019-08-18] MEDS ORDERED: PT OWN MED DRAWER 7, Y5N ONE (10:12)
[2019-08-18] MEDS: CARVEDILOL 25 MG TABLET (FP) PO SCH (11:22)
[2019-08-18] MEDS: ASPIRIN COATED 81 MG TABLET.EC PO SCH (11:22)
[2019-08-18] MEDS: AMMONIUM LACTATE 12% LOTION 225 GM BOTTLE TP SCH (11:23)
[2019-08-18] MEDS: FUROSEMIDE 40 MG TABLET (FP) PO SCH (11:23)
[2019-08-18] MEDS: BETHANECHOL CHLORIDE 10 MG TABLET PO SCH ×2 (11:24→14:04)
[2019-08-18] MEDS: FINASTERIDE 5 MG TABLET (FP) PO SCH (11:24)
--- NOTE | 2019-08-18 14:11 | DS ---
Physical Exam: SUBJECTIVE: Patient seen and examined OBJECTIVE: Vital Signs Period Temp Pulse Resp BP Sys/Escoto Pulse Ox Last 24 Hr 97.7 F-98.6 F 61-67 20-20 116-139/54-72 96-96 PHYSICAL EXAM GENERAL: The patient is awake, alert, and fully oriented, in no acute distress. HEAD: Normal with no signs of trauma. EYES: PERRL, extraocular movements intact, sclera anicteric, conjunctiva clear. ENT: Ears normal, nares patent, oropharynx clear without exudates, moist mucous membranes. NECK: Trachea midline, full range of motion, supple. LUNGS: Breath sounds equal, clear to auscultation bilaterally, no wheezes, no crackles, no accessory muscle use. HEART: Regular rate and rhythm, S1, S2 without murmur, rub or gallop. ABDOMEN: Soft, nontender, nondistended, normoactive bowel sounds, no guarding, no rebound, no hepatosplenomegaly, no masses. EXTREMITIES: 2+ pulses, warm, well-perfused, no edema. NEUROLOGICAL: Cranial nerves II through XII grossly intact. Normal speech, gait not observed. PSYCH: Normal mood, normal affect. SKIN: Warm, dry, normal turgor, no rashes or lesions noted. LABS Laboratory Results - last 24 hr 08/17/19 08/17/19 08/18/19 17:14 21:36 07:03 WBC RBC Hgb Hct MCV MCH MCHC RDW Plt Count MPV Sodium Potassium Chloride Carbon Dioxide Anion Gap BUN Creatinine Est GFR (CKD-EPI)AfAm Est GFR (CKD-EPI)NonAf POC Glucometer 121 141 131 Random Glucose Calcium 08/18/19 08/18/19 08/18/19 08:10 08:10 12:04 WBC 7.1 RBC 3.47 L Hgb 10.4 L Hct 31.3 L MCV 90.4 MCH 30.0 MCHC 33.2 RDW 14.8 Plt Count 357 MPV 7.3 L Sodium 143 Potassium 4.1 Chloride 112 H Carbon Dioxide 24 Anion Gap 8 BUN 41.7 H Creatinine 2.0 H Est GFR (CKD-EPI)AfAm 36.49 Est GFR (CKD-EPI)NonAf 31.48 POC Glucometer 130 Random Glucose 133 H Calcium 8.4 L HOSPITAL COURSE: Date of Admission:08/11/19 Date of Discharge: 08/18/19 Discharge Summary Problems reviewed: Yes Reason For Visit: ACUTE KIDNEY INJURY SUPERIMPOSED ON CHRONIC KIDNEY Current Active Problems Abdominal pain (Acute) Acute kidney injury superimposed on chronic kidney disease (Acute) CKD (chronic kidney disease) (Acute) Diastolic heart failure (Acute) Type 2 diabetes mellitus (Acute) Condition: Improved - Instructions Diet, Activity, Other Instructions: You were seen here because your prostate was too large for urine to pass. You received a procedure to shave the prostate and have been being well since. MEDICATIONS: Please STOP taking the lasix until another provider says Please take Bethanechol 5mg four times daily by mouth Please take Lisinopril 5mg daily (decreased from your previous dose) since your blood pressure is okay Take the rest of the medications as below Follow-up: Please follow with Dr. Montalvo in 3-5 days to update them on your care Please follow with Dr. José Manuel Nixon for your recovery from your procedure in 1 week Referrals: Jostin Nixon MD [Staff Physician] - 1 Week Kal Montalvo [Non Staff, Medical] - (3-5 days) Disposition: HALF-WAY FACILITY - Home Medications Comprehensive Discharge Medication List: Ambulatory Orders Aspirin 81 mg PO DAILY 11/23/18 Atorvastatin Calcium 80 mg PO DAILY 11/23/18 Finasteride [Proscar] 5 mg PO DAILY 11/23/18 Latanoprost/Pf [Latanoprost 0.005% Eye Drop] 7.5 ml OP HS 11/23/18 Tamsulosin HCl [Flomax] 0.4 mg PO DAILY 11/23/18 Albuterol Sulfate Inhaler - [Ventolin HFA Inhaler -] 1 puff IH BID 08/03/19 Ammonium Lactate Cream [Lac-Hydrin 12% Cream -] 1 applic TP BID 08/03/19 Insulin (Levemir) [Levemir Vial] 36 unit SQ DAILY 08/03/19 Insulin Aspart [Novolog] See Protocol SQ BID 08/03/19 Sennosides [Senna -] 2 tab PO HS 08/03/19 Carvedilol [Coreg -] 25 mg PO BID #60 tablet 08/08/19 Bethanechol Chloride [Bethanechol Chloride -] 5 mg PO QID tablet 08/18/19 Lisinopril [Prinivil] 5 mg PO DAILY tablet 08/18/19 - Discharge Referral Referred to [facility] No ATTENDING PHYSICIAN STATEMENT I saw and evaluated the patient. I reviewed the resident's note and discussed the case with the resident. I agree with the resident's findings and plan as documented. SUBJECTIVE: OBJECTIVE: ASSESSMENT AND PLAN:
[2019-08-18 14:29] VITALS: BP 120/60; PULSE 70; TEMP 98.3
--- NOTE | 2019-08-18 15:02 | PN ---
Progress Note, Physician History of Present Illness: Pt seen and examined at bedside. He is awake and alert. He is eager to go home. - Current Medication List Current Medications: Active Medications Albuterol Sulfate (Ventolin Hfa Inhaler -) 1 puff IH BID PRN PRN Reason: SHORTNESS OF BREATH Aspirin (Ecotrin -) 81 mg PO DAILY [facility] Last Admin: 08/18/19 11:22 Dose: Not Given Atorvastatin Calcium (Lipitor -) 80 mg PO HS [facility] Last Admin: 08/17/19 21:38 Dose: Not Given Bethanechol Chloride (Urecholine -) 5 mg PO QID [facility] Last Admin: 08/18/19 14:04 Dose: Not Given Carvedilol (Coreg -) 25 mg PO BID [facility] Last Admin: 08/18/19 11:22 Dose: Not Given Finasteride (Proscar -) 5 mg PO DAILY [facility] Last Admin: 08/18/19 11:24 Dose: Not Given Furosemide (Lasix -) 100 mg PO DAILY [facility] Last Admin: 08/18/19 11:23 Dose: Not Given Insulin Aspart (Novolog Vial Sliding Scale -) 1 vial SQ [facility]; Protocol Last Admin: 08/18/19 12:12 Dose: Not Given Insulin Detemir (Levemir Vial) 36 units SQ AM [facility] Last Admin: 08/18/19 07:04 Dose: 36 units Lactic Acid (Lac-Hydrin 12) 1 applic TP BID [facility] Last Admin: 08/18/19 11:23 Dose: Not Given Latanoprost (Xalatan 0.005% Eye Drops -) 1 drop OU HS [facility] Last Admin: 08/17/19 21:39 Dose: Not Given Lisinopril (Prinivil) 5 mg PO DAILY [facility] Last Admin: 08/18/19 11:24 Dose: Not Given Tamsulosin HCl (Flomax -) 0.4 mg PO Q12H [facility] Last Admin: 08/18/19 07:04 Dose: Not Given - Objective Vital Signs: Vital Signs Temperature 98.3 F 08/18/19 14:00 Pulse Rate 70 08/18/19 14:00 Respiratory Rate 20 08/18/19 14:00 Blood Pressure 120/60 08/18/19 14:00 O2 Sat by Pulse Oximetry (%) 96 08/18/19 09:00 Constitutional: Yes: Calm Eyes: Yes: Conjunctiva Clear HENT: Yes: Atraumatic Neck: Yes: Supple Cardiovascular: Yes: S1, S2 Respiratory: Yes: CTA Bilaterally Gastrointestinal: Yes: Soft Genitourinary: Yes: WNL Musculoskeletal: Yes: WNL Edema: No Integumentary: Yes: WNL Neurological: Yes: Oriented Psychiatric: Yes: Oriented Labs: CBC, BMP 08/18/19 08:10 08/18/19 08:10 INR, PTT INR 1.08 (0.83-1.09) 08/15/19 08:20 Problem List - Problems (1) CKD (chronic kidney disease) Code(s): N18.9 - CHRONIC KIDNEY DISEASE, UNSPECIFIED Assessment/Plan Current Medications Generic Name Dose Route Start Last Admin Trade Name Freq PRN Reason Stop Dose Admin Albuterol Sulfate 1 puff 08/16/19 22:00 Ventolin Hfa Inhaler - IH BID PRN SHORTNESS OF BREATH Aspirin 81 mg 08/17/19 10:00 08/18/19 11:22 Ecotrin - PO Not Given DAILY [facility] Atorvastatin Calcium 80 mg 08/16/19 22:00 08/17/19 21:38 Lipitor - PO Not Given HS [facility] Bethanechol Chloride 5 mg 08/18/19 10:00 08/18/19 14:04 Urecholine - PO Not Given QID [facility] Carvedilol 25 mg 08/16/19 22:00 08/18/19 11:22 Coreg - PO Not Given BID [facility] Finasteride 5 mg 08/17/19 10:00 08/18/19 11:24 Proscar - PO Not Given DAILY [facility] Furosemide 100 mg 08/17/19 10:00 08/18/19 11:23 Lasix - PO Not Given DAILY [facility] Insulin Aspart 1 vial 08/16/19 22:00 08/18/19 12:12 Novolog Vial Sliding Scale - SQ Not Given ACHS [facility] Protocol Insulin Detemir 36 units 08/17/19 07:00 08/18/19 07:04 Levemir Vial SQ 36 units AM [facility] Administration Lactic Acid 1 applic 08/16/19 22:00 08/18/19 11:23 Lac-Hydrin 12 TP Not Given BID [facility] Latanoprost 1 drop 08/16/19 22:00 08/17/19 21:39 Xalatan 0.005% Eye Drops - OU Not Given HS [facility] Lisinopril 5 mg 08/18/19 10:00 08/18/19 11:24 Prinivil PO Not Given DAILY [facility] Tamsulosin HCl 0.4 mg 08/16/19 19:30 08/18/19 07:04 Flomax - PO Not Given Q12H [facility] Impression 1. ISMA 2. CKD 3. bph 4. nsaid use 5. htn 6. dementia 7. dm Plan - bp is stable - renal function stable - will need outpt follow up - cont robin - s/p TUVP - avoid nsaids
== END 2019-08-18 16:16 | disposition home or self-care (01) | DRG 713 ==
LOC: JER 10:10 → JERBED 17:51 → J5S 21:12
PROVIDERS: ADMIT Internal Medicine; ATTEND Internal Medicine
PROC: 0V508ZZ Destruction of Prostate, Via Natural or Artificial Opening Endoscopic (ICD-10-PCS; principal; 2019-08-16 15:30)
DX: N40.1 Benign prostatic hyperplasia with lower urinary tract symptoms (principal); N13.8 Other obstructive and reflux uropathy; G81.94 Hemiplegia, unspecified affecting left nondominant side; N17.9 Acute kidney failure, unspecified; I13.0 Hypertensive heart and chronic kidney disease with heart failure and stage 1 through stage 4 chronic kidney disease, or unspecified chronic kidney disease; N18.4 Chronic kidney disease, stage 4 (severe); I50.32 Chronic diastolic (congestive) heart failure; R33.9 Retention of urine, unspecified; R79.89 Other specified abnormal findings of blood chemistry; E78.5 Hyperlipidemia, unspecified; E11.22 Type 2 diabetes mellitus with diabetic chronic kidney disease; F01.50 Vascular dementia, unspecified severity, without behavioral disturbance, psychotic disturbance, mood disturbance, and anxiety; I27.20 Pulmonary hypertension, unspecified; D63.1 Anemia in chronic kidney disease; Z79.1 Long term (current) use of non-steroidal anti-inflammatories (NSAID)
CPT/HCPCS: 36415; 71045-TC-FY; 74176-TC; 76775-TC; 76856-TC; 80048; 80053; 81003; 82150; 82550; 82553; 82565; 82962; 83690; 83735; 84100; 84153; 84484; 84540; 85025; 85027; 85610; 86850; 86900; 86901; 87086; 87205; 93005; 93010; 94760; 97116-GP; 97161-GP; 99285-25; J0131; J1644; J7030